=== PATIENT | male | born 1950 | race Caucasian/White ===

== ENCOUNTER → 2016-11-16 | Outpatient (CLI) | payer MEDICARE, OTHER ==
[2016-11-16 11:14] LABS: PROTHROMBIN TIME 25.8 SEC (11.4-15.4)
== END ==
LOC: OD 10:32
PROVIDERS: ATTEND Internal Medicine
DX: Z79.01 Long term (current) use of anticoagulants (principal)
CPT/HCPCS: 36415; 85610

== ENCOUNTER → 2017-01-24 | Outpatient (CLI) | payer MEDICARE, OTHER ==
[2017-01-24 11:05] LABS: PROTHROMBIN TIME 23.6 SEC (11.4-15.4)
== END ==
LOC: OD 10:12
PROVIDERS: ATTEND Internal Medicine
DX: Z79.01 Long term (current) use of anticoagulants (principal)
CPT/HCPCS: 36415; 85610

== ENCOUNTER → 2017-03-01 | Outpatient (CLI) | payer MEDICARE, OTHER ==
[~2017-03-01] MED LIST: AMINOPHYLLINE INJ/PF 250 MG/10 ML SDV IV ONE; REGADENOSON INJ 0.4 MG/5 ML DISP.SYRIN IV ONE
--- NOTE | 2017-03-01 18:34 | DRAGON STRESS TEST REPORT ---
INTRAVENOUS LEXISCAN CARDIOLITE STRESS TEST USING SINGLE PHOTON EMMISION COMPUTERIZED TOMOGRAPHIC. DATE OF PROCEDURE: March 01, 2017 INDICATION : Coronary artery disease CARDIAC RISK FACTORS: Hypertension, dyslipidemia RESTING EKG: Sinus rhythm, minor nonspecific ST segment changes. STRESS EKG: No significant changes noted with LexiScan bolus REASON FOR TERMINATION: Protocol. PROCEDURE REPORT: Baseline heart rate 68 beats per minute with blood pressure of 127/81. Patient had no significant complaints. Heart rate at 2 minutes post bolus 78 with a blood pressure of 117/66. 3 minutes post bolus heart rate 70 with blood pressure of 96/63. No significant EKG changes were noted. Patient had no significant complaints during the procedure or postprocedure. Patient injected with Aminophyllin 75 mg at 3 minutes or later after Lexiscan bolus. CONCLUSIONS: Normal EKG and hemodynamic response to IV LexiScan. NUCLEAR DATA: At rest the patient was given 14.87 millicuries of technetium 99 sestamibi injected intravenously. As per protocol rest gated SPECT images were obtained. Subsequently the patient was given intravenous LexiScan at a dose of 0.4 mg in 5 mL intravenously, followed by flush with normal saline. Subsequently the stress dose of 41.8 millicuries of technetium 99 sestamibi was injected intravenously. As per protocol stress gated images were obtained. NUCLEAR INTERPRETATION: Both raw and processed data were used for interpretation. Visual, qualitative, computer-generated quantitative data was used. There was good myocardial uptake of technetium compound. Motion artifact and soft tissue attenuations were noted. Increased visceral uptake was noted. Borderline decreased uptake was noted in the distal inferior wall in bulls eye images but is felt to be related to subtraction, related to increased visceral uptake. No corresponding wall motion abnormalities were noted. No definitive areas of transient perfusion defect noted. No definitive areas of fixed perfusion defect or scars noted. EKG gated imaging showed LV EF at 69 %, rest and stress gated EF similar visually. T. I D. ratio was 1.12. Lung heart ratio noted to be within normal limits 0.33. No significant extracardiac and abnormal radiotracer activities were noted. RV free wall uptake was noted to be mildly increased. IMPRESSION: Also refer to comments under nuclear interpretation. Also test results needs to be interpreted in the context of pretest probability. 1. There is no definitive scintigraphic evidence of LexiScan induced myocardial ischemia. 2. There is no definitive scintigraphic evidence of myocardial infarction/scar. 3. EKG gated imaging shows left ejection fraction of approximately 69 %. 4. Clinical correlation requested as occasionally single vessel disease or balanced ischemia could be missed. In approximately 10% of the cases Lexiscan may not cause adequate vasodilatory stress. RECOMMENDATIONS: Aggressive risk factor modification, medical therapy. Clinical correlation with echocardiogram derived ejection fraction. Inability to exercise by itself can lead to increased cardiovascular event risks. Consider cardiology consultation and or follow-up if clinically indicated. I AM AVAILABLE FOR CARDIOLOGY CONSULTATION AND FOLLOWUP IF REQUESTED BY PMD Jc Raza M.D., [employer] Assistant hull builder, Board certified in cardiovascular diseases, Nuclear cardiology, Echocardiography Cardiac CT and cardiac MRI Ph. [phone] [facility]
== END ==
LOC: RAD 06:33
PROVIDERS: ATTEND Internal Medicine
DX: R06.00 Dyspnea, unspecified (principal); I48.0 Paroxysmal atrial fibrillation
CPT/HCPCS: 93017; 78452; A9500; J2785; J0280; Q9969

== ENCOUNTER → 2017-03-06 | Outpatient (CLI) | payer MEDICARE, OTHER ==
[2017-03-06 13:03] LABS: PROTHROMBIN TIME 23.5 SEC (11.4-15.4)
== END ==
LOC: OD 11:42
PROVIDERS: ATTEND Internal Medicine
DX: Z79.01 Long term (current) use of anticoagulants (principal)
CPT/HCPCS: 36415; 85610

== ENCOUNTER → 2017-06-21 | Outpatient (CLI) | payer MEDICARE, OTHER ==
[2017-06-21 13:14] LABS: PROTHROMBIN TIME 26.8 SEC (11.4-15.4)
== END ==
LOC: OD 12:10
PROVIDERS: ATTEND Internal Medicine
DX: Z79.01 Long term (current) use of anticoagulants (principal)
CPT/HCPCS: 36415; 85610

== ENCOUNTER → 2017-08-13 | Outpatient (CLI) | payer MEDICARE, OTHER ==
[2017-08-13 11:33] LABS: PROTHROMBIN TIME 26.1 SEC (11.4-15.4)
== END ==
LOC: OD 10:27
PROVIDERS: ATTEND Internal Medicine
DX: Z51.81 Encounter for therapeutic drug level monitoring (principal); Z79.01 Long term (current) use of anticoagulants
CPT/HCPCS: 36415; 85610

== ENCOUNTER → 2017-11-28 | Outpatient (CLI) | payer MEDICARE, OTHER ==
[2017-11-28 11:16] LABS: PROTHROMBIN TIME 27.4 SEC (11.4-15.4)
== END ==
LOC: OD 10:16
PROVIDERS: ATTEND Internal Medicine
DX: Z51.81 Encounter for therapeutic drug level monitoring (principal); Z79.01 Long term (current) use of anticoagulants
CPT/HCPCS: 36415; 85610

== ENCOUNTER → 2018-01-29 | Outpatient (CLI) | payer MEDICARE, OTHER ==
[2018-01-29 13:35] LABS: ABSOLUTE BASOPHILS # (AUTO) 0.1 10^3/uL (0.0-0.2); ABSOLUTE EOSINOPHILS # (AUTO) 0.3 10^3/uL (0.0-0.6); ABSOLUTE LYMPHOCYTES (AUTO) 1.6 10^3/uL (0.5-4.7); ABSOLUTE MONOCYTES (AUTO) 0.6 10^3/uL (0.1-1.4); ABSOLUTE NEUT (AUTO) 5.6 10^3/uL (1.7-8.2); BASOPHILS % (AUTO) 0.9 % (0-2); EOSINOPHILS % (AUTO) 3.3 % (0-6); HEMATOCRIT 43.4 % (37.9-51.0); LYMPHOCYTES % (AUTO) 19.5 % (13-45); MEAN CORPUSCULAR HEMOGLOBIN 25.5 pg (27.0-33.4); MEAN CORPUSCULAR HGB CONC 32.2 g/dL (32.0-36.0); MEAN CORPUSCULAR VOLUME 79 fl (80-97); MONOCYTES % (AUTO) 6.8 % (3-13); PLATELET COUNT 283 10^3/uL (150-450); RED BLOOD COUNT 5.49 10^6/uL (4.35-5.55); RED CELL DISTRIBUTION WIDTH 14.8 % (11.5-14.0); SEGMENTED NEUTROPHILS % (AUTO) 69.5 % (42-78); TOTAL CELLS COUNTED % (AUTO) 100 %; WHITE BLOOD COUNT 8.1 10^3/uL (4.0-10.5)
[2018-01-29 13:42] LABS: INTERNATIONAL RATION (INR) 2.89; PROTHROMBIN TIME 31.6 SEC (11.4-15.4)
[2018-01-29 13:58] LABS: ALANINE AMINOTRANSFERASE 18 U/L (21-72); ALBUMIN 4.2 g/dL (3.5-5.0); ALKALINE PHOSPHATASE 60 U/L (38-126); ANION GAP 10 (5-19); ASPARTATE AMINO TRANSFERASE 19 U/L (17-59); BILIRUBIN,DIRECT 0.2 mg/dL (0.0-0.4); BILIRUBIN,TOTAL 0.3 mg/dL (0.2-1.3); BLOOD UREA NITROGEN 18 mg/dL (7-20); CALCIUM 10.2 mg/dL (8.4-10.2); CARBON DIOXIDE 34 mmol/L (22-30); CHLORIDE 103 mmol/L (98-107); CHOLESTEROL 95.39 mg/dL (0-200); GLUCOSE 85 mg/dL (75-110); POTASSIUM 4.6 mmol/L (3.6-5.0); SODIUM 146.5 mmol/L (137-145); TOTAL PROTEIN 6.8 g/dL (6.3-8.2); TRIGLYCERIDES 82 mg/dL (<150)
[2018-01-29 14:09] LABS: DIRECT LDL 43 mg/dL (<100)
== END ==
LOC: OD 11:42
PROVIDERS: ATTEND Internal Medicine
DX: F33.1 Major depressive disorder, recurrent, moderate (principal); F41.9 Anxiety disorder, unspecified; Z79.899 Other long term (current) drug therapy; Z79.01 Long term (current) use of anticoagulants
CPT/HCPCS: 36415; 80053; 80061; 84443; 85025; 85610

== ENCOUNTER → 2018-04-16 | Outpatient (CLI) | payer MEDICARE, OTHER ==
[2018-04-16 14:12] LABS: INTERNATIONAL RATION (INR) 2.74; PROTHROMBIN TIME 30.3 SEC (11.4-15.4)
== END ==
LOC: OD 12:24
PROVIDERS: ATTEND Internal Medicine
DX: Z79.01 Long term (current) use of anticoagulants (principal)
CPT/HCPCS: 36415; 85610

== ENCOUNTER → 2018-05-21 | Outpatient (CLI) | payer MEDICARE, OTHER ==
[2018-05-21 13:55] LABS: INTERNATIONAL RATION (INR) 3.54; PROTHROMBIN TIME 37.1 SEC (11.4-15.4)
== END ==
LOC: OD 12:44
PROVIDERS: ATTEND Internal Medicine
DX: Z51.81 Encounter for therapeutic drug level monitoring (principal); Z79.01 Long term (current) use of anticoagulants
CPT/HCPCS: 36415; 85610

== ENCOUNTER → 2018-06-12 | Outpatient (CLI) | payer MEDICARE, OTHER ==
[2018-06-12 14:39] LABS: INTERNATIONAL RATION (INR) 3.11; PROTHROMBIN TIME 33.5 SEC (11.4-15.4)
== END ==
LOC: OD 12:40
PROVIDERS: ATTEND Internal Medicine
DX: I48.91 Unspecified atrial fibrillation (principal)
CPT/HCPCS: 36415; 85610

== ENCOUNTER → 2018-06-18 | Outpatient (CLI) | payer MEDICARE, OTHER ==
[2018-06-18 12:22] LABS: INTERNATIONAL RATION (INR) 2.92; PROTHROMBIN TIME 31.8 SEC (11.4-15.4)
== END ==
LOC: OD 11:14
PROVIDERS: ATTEND Internal Medicine
DX: I48.91 Unspecified atrial fibrillation (principal)
CPT/HCPCS: 36415; 85610

== ENCOUNTER → 2018-06-26 | Outpatient (CLI) | payer MEDICARE, OTHER ==
[2018-06-26 14:27] LABS: INTERNATIONAL RATION (INR) 2.96; PROTHROMBIN TIME 32.2 SEC (11.4-15.4)
== END ==
LOC: OD 13:01
PROVIDERS: ATTEND Internal Medicine
DX: I48.1 Persistent atrial fibrillation (principal)
CPT/HCPCS: 36415; 85610

== ENCOUNTER → 2018-07-17 | Outpatient (CLI) | payer MEDICARE, OTHER ==
[2018-07-17 14:30] LABS: INTERNATIONAL RATION (INR) 2.67; PROTHROMBIN TIME 29.7 SEC (11.4-15.4)
== END ==
LOC: OD 13:15
PROVIDERS: ATTEND Internal Medicine
DX: Z51.81 Encounter for therapeutic drug level monitoring (principal); I48.91 Unspecified atrial fibrillation
CPT/HCPCS: 36415; 85610

== ENCOUNTER → 2018-08-26 | Outpatient (CLI) | payer MEDICARE, OTHER ==
[2018-08-26 12:09] LABS: INTERNATIONAL RATION (INR) 4.27
== END ==
LOC: OD 11:13
PROVIDERS: ATTEND Internal Medicine
DX: I48.91 Unspecified atrial fibrillation (principal)
CPT/HCPCS: 36415; 85610

== ENCOUNTER → 2018-09-04 | Outpatient (CLI) | payer MEDICARE, OTHER ==
[2018-09-04 10:06] LABS: ABSOLUTE BASOPHILS # (AUTO) 0.1 10^3/uL (0.0-0.2); ABSOLUTE EOSINOPHILS # (AUTO) 0.2 10^3/uL (0.0-0.6); ABSOLUTE LYMPHOCYTES (AUTO) 0.9 10^3/uL (0.5-4.7); ABSOLUTE MONOCYTES (AUTO) 0.4 10^3/uL (0.1-1.4); ABSOLUTE NEUT (AUTO) 5.9 10^3/uL (1.7-8.2); BASOPHILS % (AUTO) 0.8 % (0-2); EOSINOPHILS % (AUTO) 2.5 % (0-6); HEMOGLOBIN 12.4 g/dL (13.5-17.0); LYMPHOCYTES % (AUTO) 11.8 % (13-45); MEAN CORPUSCULAR HEMOGLOBIN 24.7 pg (27.0-33.4); MEAN CORPUSCULAR HGB CONC 32.6 g/dL (32.0-36.0); MEAN CORPUSCULAR VOLUME 76 fl (80-97); PLATELET COUNT 341 10^3/uL (150-450); RED BLOOD COUNT 5.02 10^6/uL (4.35-5.55); RED CELL DISTRIBUTION WIDTH 15.5 % (11.5-14.0); SEGMENTED NEUTROPHILS % (AUTO) 78.9 % (42-78); TOTAL CELLS COUNTED % (AUTO) 100 %; WHITE BLOOD COUNT 7.5 10^3/uL (4.0-10.5)
[2018-09-04 10:13] LABS: PROTHROMBIN TIME 23.6 SEC (11.4-15.4)
[2018-09-04 10:28] LABS: ALANINE AMINOTRANSFERASE 16 U/L (21-72); ALBUMIN 3.9 g/dL (3.5-5.0); ALKALINE PHOSPHATASE 61 U/L (38-126); ANION GAP 11 (5-19); ASPARTATE AMINO TRANSFERASE 16 U/L (17-59); BILIRUBIN,DIRECT 0.2 mg/dL (0.0-0.4); BILIRUBIN,TOTAL 0.3 mg/dL (0.2-1.3); BLOOD UREA NITROGEN 17 mg/dL (7-20); CARBON DIOXIDE 32 mmol/L (22-30); CHLORIDE 103 mmol/L (98-107); CHOLESTEROL 82.76 mg/dL (0-200); GLUCOSE 109 mg/dL (75-110); POTASSIUM 4.5 mmol/L (3.6-5.0); SODIUM 146.4 mmol/L (137-145); TOTAL PROTEIN 6.8 g/dL (6.3-8.2); TRIGLYCERIDES 70 mg/dL (<150)
[2018-09-04 10:39] LABS: DIRECT LDL 52 mg/dL (<100)
[2018-09-04 10:45] LABS: FREE T3 3.18 pg/mL (2.77-5.27); FREE T4 (FREE THYROXINE) 1.17 ng/dL (0.78-2.19)
[2018-09-04 10:58] LABS: THYROID STIMULATING HORMONE 0.71 uIU/mL (0.47-4.68)
[2018-09-04 16:51] LABS: ABSOLUTE RETICS # 0.053 10^6/uL (0.028-0.122); RETICULOCYTE COUNT (AUTO) 1.04 % (0.66-2.85)
[2018-09-04 17:28] LABS: IRON(TIBC) 31.9 ug/dL (49-181)
== END ==
LOC: OD 08:43
PROVIDERS: ATTEND Internal Medicine
DX: E78.5 Hyperlipidemia, unspecified (principal); J44.9 Chronic obstructive pulmonary disease, unspecified; I48.91 Unspecified atrial fibrillation; R53.83 Other fatigue; R35.1 Nocturia; G47.33 Obstructive sleep apnea (adult) (pediatric); R63.4 Abnormal weight loss; D64.9 Anemia, unspecified
CPT/HCPCS: 36415; 80053; 80061; 82728; 83540; 83550; 84153; 84439; 84443; 84481; 85025; 85045; 85610

== ENCOUNTER → 2018-12-12 | Outpatient (CLI) | payer MEDICARE, OTHER ==
[2018-12-12 12:48] LABS: INTERNATIONAL RATION (INR) 2.48
== END ==
LOC: OD 11:36
PROVIDERS: ATTEND Internal Medicine
DX: I48.91 Unspecified atrial fibrillation (principal)
CPT/HCPCS: 36415; 85610

== ENCOUNTER → 2018-12-20 | Outpatient (CLI) | payer OTHER, MEDICARE ==
[2018-12-20 10:41] LABS: ABSOLUTE BASOPHILS # (AUTO) 0.1 10^3/uL (0.0-0.2); ABSOLUTE EOSINOPHILS # (AUTO) 0.4 10^3/uL (0.0-0.6); ABSOLUTE LYMPHOCYTES (AUTO) 1.2 10^3/uL (0.5-4.7); ABSOLUTE MONOCYTES (AUTO) 0.7 10^3/uL (0.1-1.4); ABSOLUTE NEUT (AUTO) 7.9 10^3/uL (1.7-8.2); BASOPHILS % (AUTO) 0.8 % (0-2); HEMATOCRIT 35.3 % (37.9-51.0); HEMOGLOBIN 11.4 g/dL (13.5-17.0); LYMPHOCYTES % (AUTO) 11.3 % (13-45); MEAN CORPUSCULAR HEMOGLOBIN 23.4 pg (27.0-33.4); MEAN CORPUSCULAR HGB CONC 32.3 g/dL (32.0-36.0); MEAN CORPUSCULAR VOLUME 73 fl (80-97); MONOCYTES % (AUTO) 6.9 % (3-13); PLATELET COUNT 431 10^3/uL (150-450); RED BLOOD COUNT 4.87 10^6/uL (4.35-5.55); RED CELL DISTRIBUTION WIDTH 14.8 % (11.5-14.0); TOTAL CELLS COUNTED % (AUTO) 100 %; WHITE BLOOD COUNT 10.2 10^3/uL (4.0-10.5)
[2018-12-20 11:01] LABS: ALANINE AMINOTRANSFERASE 11 U/L (21-72); ALBUMIN 3.6 g/dL (3.5-5.0); ALKALINE PHOSPHATASE 66 U/L (38-126); AMYLASE 55 U/L (30-110); ANION GAP 9 (5-19); ASPARTATE AMINO TRANSFERASE 18 U/L (17-59); BILIRUBIN,DIRECT 0.3 mg/dL (0.0-0.4); BILIRUBIN,TOTAL 0.4 mg/dL (0.2-1.3); BLOOD UREA NITROGEN 16 mg/dL (7-20); CALCIUM 10.1 mg/dL (8.4-10.2); CARBON DIOXIDE 30 mmol/L (22-30); CHLORIDE 107 mmol/L (98-107); CHOLESTEROL 80.07 mg/dL (0-200); GLUCOSE 106 mg/dL (75-110); LIPASE 89.4 U/L (23-300); POTASSIUM 4.6 mmol/L (3.6-5.0); SODIUM 146.3 mmol/L (137-145); TOTAL PROTEIN 6.5 g/dL (6.3-8.2); TRIGLYCERIDES 69 mg/dL (<150)
[2018-12-20 11:13] LABS: DIRECT LDL 46 mg/dL (<100)
== END ==
LOC: OD 09:44
PROVIDERS: ATTEND Internal Medicine
DX: J44.9 Chronic obstructive pulmonary disease, unspecified (principal); I10 Essential (primary) hypertension; I48.0 Paroxysmal atrial fibrillation; R10.9 Unspecified abdominal pain
CPT/HCPCS: 36415; 80053; 80061; 82150; 83690; 84443; 85025

== ENCOUNTER → 2018-12-26 | Outpatient (CLI) | payer MEDICARE, OTHER ==
--- NOTE | 2018-12-26 11:08 | RADIOLOGY REPORT (SQ) ---
EXAM DESCRIPTION: CT ABD/PELVIS WITH IV ORAL COMPLETED DATE/TIME: 12/26/2018 8:00 am REASON FOR STUDY: DIVERTICULITIS OF INTESTINE (K57.92) K57.92 DVTRCLI OF INTEST, PART UNSP, W/O PER F OR ABSCESS W/O COMPARISON: 11/17/2013 TECHNIQUE: CT scan of the abdomen and pelvis performed with intravenous and oral contrast using alice desiree scanning technique with dynamic intravenous contrast injection. Images reviewed with lung, soft t issue, and bone windows. Reconstructed coronal and sagittal MPR images reviewed. Delayed images for e valuation of the urinary system also acquired. All images stored on PACS. All CT scanners at this facility use dose modulation, iterative reconstruction, and/or weight based d osing when appropriate to reduce radiation dose to as low as reasonably achievable (ALARA). [facility]: Dose Right [facility]: CareDose [facility]: Dose Right [facility]: Teradose 4D [facility]: Mural.ly CONTRAST TYPE AND DOSE: contrast/concentration: Isovue 350.00 mg/ml; Total Contrast Delivered: 75.0 ml; Total Saline Delivered: 67.0 ml RENAL FUNCTION: GFR > 60. RADIATION DOSE: CT Rad equipment meets quality standard of care and radiation dose reduction techniq ues were employed. CTDIvol: 5.9 - 6.8 mGy. DLP: 656 mGy-cm. . LIMITATIONS: None. FINDINGS: LOWER CHEST: No significant findings. No nodules or infiltrates. LIVER: Normal size. Stable hemangioma left lobe. No suspicious masses. No dilated ducts. SPLEEN: Normal size. No focal lesions. PANCREAS: Calcifications consistent with chronic pancreatitis. No acute findings. GALLBLADDER: No identified stones by CT criteria. No inflammatory changes to suggest cholecystitis. ADRENAL GLANDS: No significant masses or asymmetry. RIGHT KIDNEY AND URETER: Stable large cyst lower pole. No solid masses. No significant calcificati ons. No hydronephrosis or hydroureter. LEFT KIDNEY AND URETER: No solid masses. No significant calcifications. No hydronephrosis or hydr oureter. AORTA AND VESSELS: No aneurysm. RETROPERITONEUM: No retroperitoneal adenopathy, hemorrhage or masses. BOWEL AND PERITONEAL CAVITY: No obstruction. No visualized masses. No free fluid. No inflammatory ch anges or thickening of bowel wall. APPENDIX: Normal. PELVIS: No significant masses. Normal bladder. No free fluid. ABDOMINAL WALL: No masses. No hernias. BONES: Nothing acute. OTHER: No other significant finding. IMPRESSION: Chronic pancreatitis. No acute findings. TECHNICAL DOCUMENTATION: JOB ID: [id number] Quality ID # [id number]: Final reports with documentation of one or more dose reduction techniques (e.g., Au tomated exposure control, adjustment of the mA and/or kV according to patient size, use of iterative reconstruction technique) 2010 [employer]- All Rights Reserved Reading location - IP/workstation name: [email or web address]
== END ==
LOC: RAD 07:19
PROVIDERS: ATTEND Internal Medicine
DX: K57.92 Diverticulitis of intestine, part unspecified, without perforation or abscess without bleeding (principal); K86.1 Other chronic pancreatitis
CPT/HCPCS: 74177

== ENCOUNTER → 2019-01-06 | Outpatient (CLI) | payer MEDICARE, OTHER ==
[~2019-01-06] MED LIST changes: -AMINOPHYLLINE INJ/PF 250 MG/10 ML SDV IV ONE
--- NOTE | 2019-01-07 00:38 | DRAGON STRESS TEST REPORT ---
Intravenous Lexiscan Cardiolite stress test using single photon emmision computerized tomography. Date of procedure: 01/06/2019. Ordering Provider: Dr. Leisa Sutton. Patient's status: Out Patient. Indication: Abnormal EKG, and preoperative cardiac risk assessment.. Coronary risk factors age, hypertension, and dyslipidemia.: Resting EKG: Sinus Rhythm. Poor R wave progression leads V1 to V6. Nonspecific ST-T changes. Stress EKG: No changes of ischemia. The patient had no chest pain or discomfort, and there were no arrhythmias seen Reason for termination: Protocol. Conclusions: Normal EKG and hemodynamic response to IV Lexiscan. Nuclear data: At rest the patient was given 10.64 millicuries of technetium 99m sestamibi injected intravenously. As per protocol rest non gated SPECT images were obtained. Subsequently the patient was given intravenous Lexiscan at a dose of 0.4 mg in 5 mL intravenously, followed by flush with normal saline. Subsequently the stress dose of 32.0 millicuries of technetium 99m sestamibi was injected intravenously. As per protocol stress gated images were obtained. Nuclear interpretation: Review of images showed that all segments of the myocardium had normal perfusion at rest, and normal perfusion post stress with IV Lexiscan. All segments of the myocardium had normal motion, contraction, and thickening by gated study. T. I D. ratio was normal at 1.04. There is no transient ischemic dilatation of the left ventricle. Computer read rest, and stress left ventricular ejection fraction were 67 %, and 71 %, respectively. Conclusion: 1. There is no scintigraphic evidence of Lexiscan induced myocardial ischemia. 2. There is no scintigraphic evidence of myocardial infarction/scar. Recommendations: Aggressive risk factor modification, and treating the underlying co- morbidities. MTDD
--- NOTE | 2019-01-07 21:03 | XCELERA REPORT ---
[address] [address] Transthoracic Echocardiogram Report Name: CIARA HOOD Age: 68 yrs Gender: Male : 1950 Patient Status: Outpatient Patient Location: RAD Study Date: 01/06/2019 08:59 AM Height: 27 in Weight: 298 lb BSA: 1.2 m2 Procedure: A two-dimensional transthoracic echocardiogram with color flow Doppler was performed. The study was technically limited with all images being suboptimal in quality. Images were not obtained from all of the standard acoustic windows due to the limited scope of the study. Reason For Study: MURMUR / Preop Cardiac Risk assessment. History: MURMUR /Preoperative Cardiac risk assessment. Ordering Physician: LEISA ABEL Performed By: Zehra Baldwin Interpretation Summary The left ventricle is normal in size. There is normal left ventricular wall thickness. No True apical 2 chamber views obtained.Hence cannot comment on the apical anterior , the basal anterior, the basal inferior and apical inferior morales.The mid anterior , the mid inferior and the rest of the LV morales contract normally. . LVEF is normal and is greater than 60% in the limited views. Doppler measurements suggest impaired left ventricular relaxation, which is associated with grade I/IV or mild diastolic dysfunction The right ventricle is not well visualized secondary to technical limitations Right atrium not well visualized secondary to technical limitations The left atrial size is normal. There is no evidence of mitral valve prolapse. There is no vegetation seen on the mitral valve. There is no mitral valve stenosis. There is no mitral regurgitation noted. There is no aortic valve stenosis There is no LVOT obstruction. No aortic regurgitation is present. There is no tricuspid stenosis. No tricuspid regurgitation. Unable to calculate RVSP due lack of TR jet There is no pulmonic valvular stenosis. There is no pulmonic valvular regurgitation. The aortic root is not well visualized. There is no pericardial effusion. MMode/2D Measurements & Calculations RVDd: 3.3 cm LVIDd: 4.4 cm FS: 32.3 % Ao root diam: 2.8 cm IVSd: 0.79 cm LVIDs: 3.0 cm EDV(Teich): 89.4 ml Ao root area: 6.2 cm2 LVPWd: 1.0 cm ESV(Teich): 35.1 ml EF(Teich): 60.7 % Doppler Measurements & Calculations MV E max vivek: MV dec slope: Ao V2 max: LV V1 max P.9 cm/sec 260.3 cm/sec2 128.4 cm/sec 4.7 mmHg MV A max vivek: MV dec time: 0.21 secAo max PG: LV V1 max: 73.7 cm/sec 6.6 mmHg 108.6 cm/sec MV E/A: 0.73 PA V2 max: 112.6 cm/sec PA max P.1 mmHg Left Ventricle The left ventricle is normal in size. There is normal left ventricular wall thickness. No True apical 2 chamber views obtained.Hence cannot comment on the apical anterior , the basal anterior, the basal inferior and apical inferior morales.The mid anterior , the mid inferior and the rest of the LV morales contract normally. . LVEF is normal and is greater than 60% in the limited views. Doppler measurements suggest impaired left ventricular relaxation, which is associated with grade I/IV or mild diastolic dysfunction. Right Ventricle The right ventricle is not well visualized secondary to technical limitations. Atria Right atrium not well visualized secondary to technical limitations. The left atrial size is normal. Mitral Valve There is no evidence of mitral valve prolapse. There is no vegetation seen on the mitral valve. There is no mitral valve stenosis. There is no mitral regurgitation noted. Aortic Valve There is no aortic valve stenosis. There is no LVOT obstruction. No aortic regurgitation is present. Tricuspid Valve There is no tricuspid stenosis. No tricuspid regurgitation. Unable to calculate RVSP due lack of TR jet. Pulmonic Valve There is no pulmonic valvular stenosis. There is no pulmonic valvular regurgitation. Great Vessels The aortic root is not well visualized. Effusions There is no pericardial effusion. : LEISA ABEL > Leisa Abel
== END ==
LOC: RAD 08:33
PROVIDERS: ATTEND Specialist
DX: Z01.810 Encounter for preprocedural cardiovascular examination (principal); R07.9 Chest pain, unspecified; R94.31 Abnormal electrocardiogram [ECG] [EKG]; R01.1 Cardiac murmur, unspecified
CPT/HCPCS: 93306; 93017; 78452; A9500; J2785

== ENCOUNTER → 2019-01-08 | Outpatient (CLI) | payer MEDICARE, OTHER ==
--- NOTE | 2019-01-08 10:50 | RADIOLOGY REPORT (SQ) ---
EXAM DESCRIPTION: CT CHEST WITH COMPLETED DATE/TIME: 01/08/2019 9:52 am REASON FOR STUDY: R91.8 OTHER NONSPECIFIC ABNORMAL FINDING OF LUNG FIELD R91.8 OTHER NONSPECIFIC AB NORMAL FINDING OF LUNG FIELD COMPARISON: 2009 TECHNIQUE: CT scan of the chest performed using helical scanning technique with dynamic intravenous contrast injection. Images reviewed with lung, soft tissue and bone windows. Reconstructed coronal and sagittal MPR and MIP images reviewed. All images stored on PACS. All CT scanners at this facility use dose modulation, iterative reconstruction, and/or weight based d osing when appropriate to reduce radiation dose to as low as reasonably achievable (ALARA). [facility]: Dose Right [facility]: CareDose [facility]: Dose Right [facility]: Teradose 4D [facility]: [employer] CONTRAST TYPE AND DOSE: 80 cc Omnipaque 350- low osmolar. RENAL FUNCTION: GFR > 60. RADIATION DOSE: CT Rad equipment meets quality standard of care and radiation dose reduction techniq ues were employed. CTDIvol: 6.4 mGy. DLP: 240 mGy-cm. . LIMITATIONS: None. FINDINGS: LUNGS AND PLEURA: 8.3 x 8.0 x 7.37 AP by transverse by craniocaudal diameter left apical m ass. There is encasement of the left upper lobe bronchus. Mild -moderate centrilobular emphysema. 12 mm ground-glass nodule right costophrenic angle. No effusions. HILAR AND MEDIASTINAL STRUCTURES: 1.3 cm level 2R node. HEART AND VASCULAR STRUCTURES: No aneurysm or dissection. No central pulmonary emboli. No pericardi al effusion. HARDWARE: None in the chest. UPPER ABDOMEN: No significant findings. Limited exam. THYROID AND OTHER SOFT TISSUES: No masses. No adenopathy. BONES: Well-circumscribed sclerotic lesion in T2 vertebral body which is unchanged and most likely a benign bone island. OTHER: No other significant finding. IMPRESSION: 1. Left apical lung mass amenable to CT-guided biopsy. 2. 12 mm ground-glass nodule right lower lobe. 3. Small mediastinal level 4 node. TECHNICAL DOCUMENTATION: JOB ID: [id number] Quality ID # [id number]: Final reports with documentation of one or more dose reduction techniques (e.g., Au tomated exposure control, adjustment of the mA and/or kV according to patient size, use of iterative reconstruction technique) 2010 [employer]- All Rights Reserved Reading location - IP/workstation name: [email or web address]
== END ==
LOC: RAD 09:30
PROVIDERS: ATTEND Surgery
DX: R91.8 Other nonspecific abnormal finding of lung field (principal)
CPT/HCPCS: 71260; 82565

== ENCOUNTER → 2019-01-10 | Day surgery (SDC) | payer MEDICARE, OTHER ==
[2019-01-03 10:56] LABS: HEMATOCRIT 35.6 % (37.9-51.0); HEMOGLOBIN 11.6 g/dL (13.5-17.0); MEAN CORPUSCULAR HEMOGLOBIN 23.3 pg (27.0-33.4); MEAN CORPUSCULAR HGB CONC 32.5 g/dL (32.0-36.0); MEAN CORPUSCULAR VOLUME 72 fl (80-97); PLATELET COUNT 422 10^3/uL (150-450); RED BLOOD COUNT 4.96 10^6/uL (4.35-5.55); RED CELL DISTRIBUTION WIDTH 14.8 % (11.5-14.0); WHITE BLOOD COUNT 9.2 10^3/uL (4.0-10.5)
[2019-01-03 11:21] LABS: ALANINE AMINOTRANSFERASE 22 U/L (21-72); ALBUMIN 3.8 g/dL (3.5-5.0); ALKALINE PHOSPHATASE 68 U/L (38-126); ANION GAP 12 (5-19); ASPARTATE AMINO TRANSFERASE 27 U/L (17-59); BILIRUBIN,DIRECT 0.4 mg/dL (0.0-0.4); BILIRUBIN,TOTAL 0.4 mg/dL (0.2-1.3); BLOOD UREA NITROGEN 18 mg/dL (7-20); CALCIUM 10.3 mg/dL (8.4-10.2); CARBON DIOXIDE 30 mmol/L (22-30); CHLORIDE 99 mmol/L (98-107); GLUCOSE 94 mg/dL (75-110); POTASSIUM 3.9 mmol/L (3.6-5.0); SODIUM 141.2 mmol/L (137-145); TOTAL PROTEIN 6.9 g/dL (6.3-8.2)
[2019-01-03 11:26] VITALS: BP 100/69
--- NOTE | 2019-01-03 12:14 | RADIOLOGY REPORT (SQ) ---
EXAM DESCRIPTION: CHEST PA/LATERAL COMPLETED DATE/TIME: 01/03/2019 11:54 am REASON FOR STUDY: PRE-OP COMPARISON: 05/10/2015 EXAM PARAMETERS: NUMBER OF VIEWS: two views TECHNIQUE: Digital Frontal and Lateral radiographic views of the chest acquired. RADIATION DOSE: NA LIMITATIONS: none FINDINGS: LUNGS AND PLEURA: A new large ill-defined mass in the left upper lobe extends into the le ft apex and lies adjacent to the mediastinum/hilar regions. Left apical thickening. Elevation of th e left hemidiaphragm Considerations for this finding includes neoplasm, possible inflammatory/ infect ious etiologies. Questionable nodular density overlying the right lower lung, may represent the patient's nipple versu s nodule. No pneumothorax or pleural effusion. MEDIASTINUM AND HILAR STRUCTURES: No masses or contour abnormalities. HEART AND VASCULAR STRUCTURES: Heart normal size. No evidence for failure. BONES: No acute findings. HARDWARE: None in the chest. OTHER multiple surgical metallic clips overlying the lateral aspect of the right chest wall, stable f indings. IMPRESSION: 1. Since the previous examination dated 05/10/2015, a new large ill-defined mass in the left upper lobe extending into the left apex of the lung. Considerations for this finding includes n eoplasm, possible inflammatory/infectious etiologies. Further evaluation with CT chest with IV contr ast suggested. 2. Questionable nodule over lies the right lower lung, may represent the patient's nipple versus nod ule. This finding may also be evaluated with chest CT. TECHNICAL DOCUMENTATION: JOB ID: [id number] [employer]- All Rights Reserved Reading location - IP/workstation name: [email or web address]
[~2019-01-10] MED LIST changes: +CEFOXITIN SODIUM 2 GM in DEXTROSE 5%-WATER 100 ML IV PRN; +LACTATED RINGERS 1000 ML IV PRN; +LIDOCAINE 0.5% INJ-PF (5 MG/ML) 50 ML SDV SUBCUT PRN; -REGADENOSON INJ 0.4 MG/5 ML DISP.SYRIN IV ONE
== END ==
LOC: OROUT 12:02
PROVIDERS: ATTEND Surgery
DX: Z01.818 Encounter for other preprocedural examination (principal); K80.20 Calculus of gallbladder without cholecystitis without obstruction; I48.91 Unspecified atrial fibrillation; J44.9 Chronic obstructive pulmonary disease, unspecified; I25.2 Old myocardial infarction; I49.9 Cardiac arrhythmia, unspecified; K21.9 Gastro-esophageal reflux disease without esophagitis
CPT/HCPCS: 36415; 71046; 80048; 80076; 85027; J0694

== ENCOUNTER → 2019-01-26 | Outpatient (CLI) | payer MEDICARE, OTHER ==
--- NOTE | 2019-01-27 09:14 | RADIOLOGY REPORT (SQ) ---
EXAM DESCRIPTION: PET CT SKULL/THIGH COMPLETED DATE/TIME: 01/26/2019 9:54 pm REASON FOR STUDY: C34.12 MALIGNANT NEOPLASM OF UPPER LOBE, LEFT BRONCHUS OR LUNG C34.12 MALIGNANT N EOPLASM OF UPPER LOBE, LEFT BRONCHUS OR BINH COMPARISON: CT chest 01/22/2019 CT abdomen pelvis 12/26/2018 RADIONUCLIDE AND DOSE: 10.3 mCi F18 FDG The route of agent administration: Intravenous FASTING BLOOD SUGAR: 107 mg/dl CONTRAST TYPE AND DOSE: No CT contrast given. TECHNIQUE: Blood glucose level was verified. Above dose of FDG was injected intravenously. 2-D seg mented attenuation correction images were obtained from the base of the skull to the midthighs. Nonc ontrast CT images were obtained for attenuation correction and fusion with emission images. CT image s were performed without oral or intravenous contrast and are not sensitive for parenchymal lesions. A series of overlapping emission PET images were obtained. Images reviewed and [facility] by the radiologist. Images stored on PACS. LIMITATIONS: None. FINDINGS: HEAD AND NECK: No areas of abnormal metabolic activity in the soft tissues of the head and neck. CHEST: A left apical an 8.5 x 8 cm spiculated mass is present with central necrosis. This encases th e left upper lobe bronchus. This has SUV of 12 to 13.7 and correlates with diagnosis of lung cancer. No metabolically active mediastinal adenopathy. 1.5 x 1.7 cm precarinal lymph node axial image 84 wi th SUV of 1.3. ABDOMEN AND PELVIS: No areas of abnormal metabolic activity in the abdomen or pelvis. Specifically, no metabolically active liver lesions are present. Expected physiologic activity is present in the g enitourinary system and bowel. PROXIMAL LOWER EXTREMITIES: No areas of abnormal metabolic activity in the soft tissues of the lower extremities. BONES: No abnormal metabolic activity in the visualized skeleton. ADDITIONAL CT FINDINGS: Obstructive lung disease, calcified coronary arteries. Diffuse calcification s the pancreas from old pancreatitis. Right lower pole 6.5 cm renal cortical cyst. OTHER: Liver background activity 1.8 SUV. Blood pool background activity 1.2 SUV IMPRESSION: Malignant left upper lobe mass. No PET-CT evidence of widespread metastatic disease TECHNICAL DOCUMENTATION: JOB ID: [id number]- All Rights Reserved Reading location - IP/workstation name: [email or web address]
== END ==
LOC: RAD 20:12
PROVIDERS: ATTEND Internal Medicine
DX: C34.12 Malignant neoplasm of upper lobe, left bronchus or lung (principal); J44.9 Chronic obstructive pulmonary disease, unspecified
CPT/HCPCS: 78815; A9552

== ENCOUNTER → 2019-01-27 | Outpatient (CLI) | payer MEDICARE, OTHER ==
--- NOTE | 2019-01-27 17:11 | RADIOLOGY REPORT (SQ) ---
EXAM DESCRIPTION: MRI HEAD COMBO COMPLETED DATE/TIME: 01/27/2019 4:33 pm REASON FOR STUDY: C34.12 MALIGNANT NEOPLASM OF UPPER LOBE, LEFT BRONCHUS OR LUNG C34.12 MALIGNANT N EOPLASM OF UPPER LOBE, LEFT BRONCHUS OR BINH COMPARISON: PET-CT 01/26/2019 TECHNIQUE: Multiplanar imaging includes noncontrasted T1, T2, FLAIR, diffusion with ADC map and post gadolinium contrast T1 sequences. Images stored on PACS. CONTRAST TYPE AND DOSE: 10 mL Dotarem. RENAL FUNCTION: Not indicated. ACR Type II contrast agent associated with few, if any, unconfounded cases of NSF LIMITATIONS: None. FINDINGS: ANATOMY: No developmental anomalies. Normal vascular flow voids. Pituitary fossa normal. CSF SPACES: Normal in size and contour. No hemorrhage. CEREBRUM: Sulci and gyri normal in size and contour. Normal white matter signal on FLAIR imaging. No evidence of hemorrhage, mass, or extraaxial fluid collection. No abnormal enhancement post contrast. POSTERIOR FOSSA: No signal alteration. No hemorrhage. No edema, masses, or mass effect. Internal ellis tory canals, cerebellopontine angles, mastoids normal. No enhancing lesions. No abnormal enhancement post contrast. DIFFUSION IMAGING: Negative for acute or subacute infarction. ORBITS: No masses. Globes normal. PARANASAL SINUSES: No fluid levels. Mucosa normal. OTHER: No other significant finding. IMPRESSION: NORMAL MRI OF THE BRAIN WITHOUT AND WITH INTRAVENOUS GADOLINIUM CONTRAST. EVIDENCE OF ACUTE STROKE: NO. TECHNICAL DOCUMENTATION: JOB ID: [id number] [employer]- All Rights Reserved Reading location - IP/workstation name: [email or web address]
== END ==
LOC: RAD 15:19
PROVIDERS: ATTEND Internal Medicine
DX: C34.12 Malignant neoplasm of upper lobe, left bronchus or lung (principal)
CPT/HCPCS: 82565; 70553; A9576

== ENCOUNTER → 2019-01-27 | Outpatient (CLI) | payer MEDICARE, OTHER ==
[2019-01-27 16:31] LABS: INTERNATIONAL RATION (INR) 2.03
== END ==
LOC: OD 14:42
PROVIDERS: ATTEND Internal Medicine
DX: Z51.81 Encounter for therapeutic drug level monitoring (principal); I48.91 Unspecified atrial fibrillation; Z79.01 Long term (current) use of anticoagulants
CPT/HCPCS: 36415; 85610

== ENCOUNTER → 2019-02-20 | Outpatient (CLI) | payer MEDICARE, OTHER ==
--- NOTE | 2019-02-20 09:29 | EKG REPORT ---
SEVERITY:- BORDERLINE ECG - SINUS TACHYCARDIA ATRIAL PREMATURE COMPLEX BORDERLINE T ABNORMALITIES, ANT-LAT LEADS : Confirmed by: Jc Raza 20-Feb-2019 09:29:04
[2019-02-20 09:47] LABS: HEMATOCRIT 33.9 % (37.9-51.0); HEMOGLOBIN 10.6 g/dL (13.5-17.0); MEAN CORPUSCULAR HGB CONC 31.3 g/dL (32.0-36.0); MEAN CORPUSCULAR VOLUME 70 fl (80-97); PLATELET COUNT 506 10^3/uL (150-450); RED BLOOD COUNT 4.84 10^6/uL (4.35-5.55); RED CELL DISTRIBUTION WIDTH 15.2 % (11.5-14.0); WHITE BLOOD COUNT 10.6 10^3/uL (4.0-10.5)
[2019-02-20 09:51] LABS: INTERNATIONAL RATION (INR) 1.27; PROTHROMBIN TIME 16.5 SEC (11.4-15.4)
[2019-02-20 10:17] LABS: ALANINE AMINOTRANSFERASE 25 U/L (21-72); ALBUMIN 3.5 g/dL (3.5-5.0); ALKALINE PHOSPHATASE 75 U/L (38-126); ANION GAP 11 (5-19); ASPARTATE AMINO TRANSFERASE 27 U/L (17-59); BILIRUBIN,DIRECT 0.3 mg/dL (0.0-0.4); BILIRUBIN,TOTAL 0.6 mg/dL (0.2-1.3); BLOOD UREA NITROGEN 14 mg/dL (7-20); CALCIUM 10.7 mg/dL (8.4-10.2); CARBON DIOXIDE 30 mmol/L (22-30); CHLORIDE 100 mmol/L (98-107); GLUCOSE 113 mg/dL (75-110); POTASSIUM 4.7 mmol/L (3.6-5.0); SODIUM 141.4 mmol/L (137-145); TOTAL PROTEIN 6.8 g/dL (6.3-8.2)
== END ==
LOC: OD 08:50
PROVIDERS: ATTEND Surgery
DX: Z01.818 Encounter for other preprocedural examination (principal); K80.20 Calculus of gallbladder without cholecystitis without obstruction; F48.9 Nonpsychotic mental disorder, unspecified; C34.90 Malignant neoplasm of unspecified part of unspecified bronchus or lung; J44.9 Chronic obstructive pulmonary disease, unspecified; Z86.73 Personal history of transient ischemic attack (TIA), and cerebral infarction without residual deficits; Z86.711 Personal history of pulmonary embolism; K21.9 Gastro-esophageal reflux disease without esophagitis
CPT/HCPCS: 36415; 80053; 85027; 85610; 93005; 93010

== ENCOUNTER 2019-02-24 12:23 | Day surgery (SDC) | payer MEDICARE, OTHER ==
[~2019-02-24 12:23] MED LIST changes: +ACETAMINOPHEN 0 MG/0 ML RTUPB IV ONE; +DEXAMETHASONE SOD PHOSPHATE INJ 4 MG/1 ML VIAL ONE; +FENTANYL CITRATE INJ/PF 100 MCG/2 ML AMPUL ONE; +IBUPROFEN INJ 800 MG/8 ML VIAL IV PRN; -LACTATED RINGERS 1000 ML IV PRN; -LIDOCAINE 0.5% INJ-PF (5 MG/ML) 50 ML SDV SUBCUT PRN; +MIDAZOLAM 2 MG/2 ML INJ ONE; +ONDANSETRON HCL INJ/PF 4 MG/2 ML SDV ONE; +PHENYLEPHRINE HCL INJ/PF 10 MG/1 ML SDV ONE; +PREGABALIN 50 MG CAPSULE PO PRN; +PROPOFOL INJ 200 MG/20 ML VIAL IV ONE; +SUGAMMADEX SODIUM 200 MG/2 ML SDV IV ONE
[2019-02-24] MEDS ORDERED: IBUPROFEN 800 MG in NORMAL SALINE 250 ML IV PRN (13:49)
[2019-02-24 14:24] LABS: INTERNATIONAL RATION (INR) 1.18; PARTIAL THROMBOPLASTIN TIME 43.9 SEC (23.5-35.8); PROTHROMBIN TIME 15.6 SEC (11.4-15.4)
[2019-02-24 14:57] LABS: HEMOGLOBIN 11.4 g/dL (13.5-17.0); MEAN CORPUSCULAR HEMOGLOBIN 21.8 pg (27.0-33.4); MEAN CORPUSCULAR HGB CONC 30.9 g/dL (32.0-36.0); MEAN CORPUSCULAR VOLUME 71 fl (80-97); PLATELET COUNT 620 10^3/uL (150-450); RED BLOOD COUNT 5.23 10^6/uL (4.35-5.55); RED CELL DISTRIBUTION WIDTH 15.5 % (11.5-14.0); WHITE BLOOD COUNT 14.8 10^3/uL (4.0-10.5)
[2019-02-24] MEDS ORDERED: PREGABALIN 50 MG CAPSULE ONE (15:06)
[2019-02-24] MEDS ORDERED: BUPIVACAINE HCL 0.25 % INJ/PF (2.5 MG/1 ML) 30 ML VIAL ONE (15:56)
[2019-02-24] MEDS ORDERED: MEPERIDINE HCL/PF INJ 25 MG/1 ML DISP.SYRIN IV PRN (16:59)
[2019-02-24] MEDS ORDERED: MORPHINE SULFATE 10 MG/ML INJ IV PRN (16:59)
[2019-02-24] MEDS ORDERED: FENTANYL CITRATE INJ/PF 100 MCG/2 ML AMPUL IV PRN ×3 (16:59)
[2019-02-24] MEDS ORDERED: DIPHENHYDRAMINE HCL 50 MG/ML VIAL IV PRN (16:59)
[2019-02-24] MEDS ORDERED: ONDANSETRON HCL INJ/PF 4 MG/2 ML SDV IV PRN (16:59)
[2019-02-24] MEDS ORDERED: PROMETHAZINE HCL INJ 25 MG/1 ML VIAL IV PRN ×2 (16:59)
[2019-02-24] MEDS ORDERED: FENTANYL CITRATE INJ/PF 100 MCG/2 ML AMPUL ONE (17:55)
[2019-02-24] MEDS ORDERED: MEPERIDINE HCL/PF INJ 25 MG/1 ML DISP.SYRIN ONE (18:02)
[2019-02-24] MEDS ORDERED: HYDROCODONE/ACETAMINOPHEN 10-325 MG TABLET PO PRN (18:04)
[2019-02-24] MEDS ORDERED: PROMETHAZINE HCL INJ 25 MG/1 ML VIAL ONE (18:05)
[2019-02-24] MEDS ORDERED: HYDROCODONE/ACETAMINOPHEN 10-325 MG TABLET ONE (18:55)
[2019-02-24 20:40] VITALS: BP 139/85
--- NOTE | 2019-02-25 09:13 | Discharge Summary ---
Discharge Summary (SDC) - Discharge Final Diagnosis: Chronic cholecystitis Date of Surgery: 02/24/19 Discharge Date: 02/24/19 Condition: Stable Forms: ASU Anesthesia D/C Instruction, Discharge POC-Surgical Service Referrals: JAIR MENESES MD [Primary Care Provider] - ANIVAL ACUNA MD [ACTIVE STAFF] - (Follow up with Dr Acuna 03/04/19 @ 1100) Discharge Diet: As Tolerated Respiratory Treatments at Home: Deep Breathing/Coughing, Incentive Spirometer Discharge Activity: No Lifting Over 10 Pounds, No Lifting/Push/Pulling Home Care Assistance: Provided by Family Report the Following to Your Physician Immediately: Shortness of Breath, Nausea, Vomiting, Increase in Pain, Yellow Skin, Fever over 101 Degrees, Unusual Bleeding, Redness, Swelling, Warmth, Increased Soreness, Drainage-Yellow, IV Site Infection Signs
--- NOTE | 2019-02-25 09:20 | Operative Report ---
Nonrecallable Operative Report DATE OF SURGERY: 02/24/19 PREOPERATIVE DIAGNOSIS: Chronic cholecystitis POSTOPERATIVE DIAGNOSIS: Severe, chronic cholecystitis OPERATION: Laparoscopic cholecystectomy SURGEON: ANIVAL VELÁSQUEZ ANESTHESIA: GA TISSUE REMOVED OR ALTERED: Gallbladder COMPLICATIONS: None apparent ESTIMATED BLOOD LOSS: 50 cc PROCEDURE: Drains/implants: 15 Ukrainian round Fam drain in the gallbladder fossa. Procedure in detail: After informed consent was obtained, the patient was brought into the operating room and laid the supine position. The area of the abdomen was prepped and draped in a normal sterile fashion. A 15 blade scalpel was used to create an infraumbilical incision. This was deepened using sharp and blunt dissection. The cicatrix was identified, grasped with a Geoff clamp, and retracted upwards. The linea alba fascia was incised sharply, the abdomen was entered sharply. The balloon trocar was inserted, and pneumoperitoneum was achieved. A subxiphoid 5 mm port was placed under direct laparoscopic visualization. 2 more 5 mm ports were placed in the right upper quadrant in similar fashion. Atraumatic graspers were placed through the 5 mm ports. There was a dense inflammatory reaction around the gallbladder that appeared chronic. There was a large amount of omentum and transverse colon adherent to the gallbladder. With great care this was dissected free using sharp and blunt dissection. The gallbladder was then retracted cephalad and laterally. There was a dense inflammatory reaction that appear chronic in the infundibulum. Secondary to this a dome down technique was performed. The gallbladder was freed from the liver,starting with the dome, down to the infundibulum. The cystic duct could not be easily freed from the surrounding tissues. Secondary to this the gallbladder was amputated at the infundibulum and a PDS Endoloop was placed at the infundibulum/cystic duct junction. The gallbladder was then placed into an Endo Catch bag and pulled out through the umbilicus. The camera was reinserted. The hilum was inspected. The abdomen was copiously irrigated. The hilum was found to be free of any leakage of blood or bile. Secondary to the dense inflammatory reaction, a 15 Ukrainian round Fam drain was placed through the lateralmost 5 mm trocar site and directed into the gallbladder fossa. This was sutured into place using 2-0 nylon suture. Once the abdomen was adequately cleaned, the 5 mm trochars were removed under direct laparoscopic visualization. The infraumbilical trocar was removed, and pneumoperitoneum was relieved. The infraumbilical fascia was closed using 0 Vicryl suture in pandoa-vd-rsoan fashion. The overlying skin was closed using 4-0 Vicryl Rapide suture in subcuticular fashion. Dressings were placed, and the procedure was concluded. All sponge, instrument, needle counts were correct x2. Condition: Stable.
[2019-02-25] MEDS ORDERED: IBUPROFEN 800 MG TABLET PO SCH (10:00)
== END 2019-02-24 20:10 | disposition home or self-care (01) ==
LOC: OROUT 12:23
PROVIDERS: ATTEND Surgery
DX: K80.10 Calculus of gallbladder with chronic cholecystitis without obstruction (principal); I48.91 Unspecified atrial fibrillation; J44.9 Chronic obstructive pulmonary disease, unspecified; E07.9 Disorder of thyroid, unspecified; M06.9 Rheumatoid arthritis, unspecified; K21.9 Gastro-esophageal reflux disease without esophagitis; K44.9 Diaphragmatic hernia without obstruction or gangrene; I49.9 Cardiac arrhythmia, unspecified; Z86.711 Personal history of pulmonary embolism; Z89.619 Acquired absence of unspecified leg above knee; Z86.73 Personal history of transient ischemic attack (TIA), and cerebral infarction without residual deficits; Z79.01 Long term (current) use of anticoagulants; Z85.118 Personal history of other malignant neoplasm of bronchus and lung; Z87.891 Personal history of nicotine dependence
CPT/HCPCS: 86900; 86901; 36415; 86850; 84132; 85610; 85730; 88304 ×2; 47562; J2250; J1100; J0694; J3010; J2175; J2370; J2550; J2405; J7060; J7050; J2704; A9270 ×2; J1741; J3490; 790; J0131

== ENCOUNTER → 2019-03-25 | Outpatient (CLI) | payer MEDICARE, OTHER ==
--- NOTE | 2019-03-25 10:39 | RADIOLOGY REPORT (SQ) ---
EXAM DESCRIPTION: CT CHEST WITHOUT COMPLETED DATE/TIME: 03/25/2019 9:37 am REASON FOR STUDY: LUNG CA (C34.12) C34.12 MALIGNANT NEOPLASM OF UPPER LOBE, LEFT BRONCHUS OR BINH COMPARISON: 01/08/2019 TECHNIQUE: CT scan performed of the chest without intravenous contrast. Images reviewed with lung, soft tissue and bone windows. Reconstructed coronal and sagittal MPR images reviewed. All images st ored on PACS. All CT scanners at this facility use dose modulation, iterative reconstruction, and/or weight based d osing when appropriate to reduce radiation dose to as low as reasonably achievable (ALARA). [facility]: Dose Right [facility]: CareDose [facility]: Dose Right [facility]: Teradose 4D [facility]: [employer] RADIATION DOSE: CT Rad equipment meets quality standard of care and radiation dose reduction techniq ues were employed. CTDIvol: 4.8 mGy. DLP: 192 mGy-cm. mGy. LIMITATIONS: No technical limitations. FINDINGS: LUNGS AND PLEURA: Left apical lung mass measures 86.8 mm x 81.1 mm on image 18 series 2. The isthmus measures 88.2 mm in cephalocaudal dimension on image 36 series 601. There is a 12 mm reyna und-glass nodule on the right on image 101 series 4. There is irregular nodularity in the upper post erior aspect of the left lower lobe. See images 42-56 of series 4. This represents a new finding. HILAR AND MEDIASTINAL STRUCTURES: 12 mm mediastinal node on image 52 series 2. HEART AND VASCULAR STRUCTURES: No aneurysm. No pericardial effusion. UPPER ABDOMEN: Pancreatic calcifications consistent with chronic pancreatitis. THYROID AND OTHER SOFT TISSUES: No masses. No adenopathy. BONES: No significant finding. HARDWARE: None in the chest. OTHER: No other significant findings. IMPRESSION: Increasing disease in the chest. The left upper lobe lung mass is slightly larger. Thi s is most evident in the cephalocaudal dimension. There is also some new irregular nodularity in the left lower lobe as described. Chronic pancreatitis. TECHNICAL DOCUMENTATION: JOB ID: [id number] Quality ID # [id number]: Final reports with documentation of one or more dose reduction techniques (e.g., Au tomated exposure control, adjustment of the mA and/or kV according to patient size, use of iterative reconstruction technique) 2010 [employer]- All Rights Reserved Reading location - IP/workstation name: [email or web address]
== END ==
LOC: RAD 09:15
PROVIDERS: ATTEND Internal Medicine
DX: C34.12 Malignant neoplasm of upper lobe, left bronchus or lung (principal)
CPT/HCPCS: 71250

== ENCOUNTER → 2019-06-17 | Outpatient (CLI) | payer MEDICARE, OTHER ==
--- NOTE | 2019-06-17 10:55 | RADIOLOGY REPORT (SQ) ---
EXAM DESCRIPTION: CT ABD/PELVIS WITH IV ONLY COMPLETED DATE/TIME: 06/17/2019 9:05 am REASON FOR STUDY: MALIGNANT NEOPLASM OF UPPER LOBE, LEFT BRONCHUS OR LUNG C34.12 MALIGNANT NEOPLASM OF UPPER LOBE, LEFT BRONCHUS OR BINH COMPARISON: 12/26/2018 TECHNIQUE: CT scan of the abdomen and pelvis performed using helical scanning technique with dynamic intravenous contrast injection. No oral contrast. Images reviewed with lung, soft tissue, and bone windows. Reconstructed coronal and sagittal MPR images reviewed. Delayed images for evaluation of the urinary system also acquired. All images stored on PACS. All CT scanners at this facility use dose modulation, iterative reconstruction, and/or weight based d osing when appropriate to reduce radiation dose to as low as reasonably achievable (ALARA). [facility]: Dose Right [facility]: CareDose [facility]: Dose Right [facility]: Teradose 4D [facility]: StudyMax CONTRAST TYPE AND DOSE: contrast/concentration: Isovue 350.00 mg/ml; Total Contrast Delivered: 64.0 ml; Total Saline Delivered: 65.0 ml RENAL FUNCTION: See chart RADIATION DOSE: . LIMITATIONS: None. FINDINGS: LOWER CHEST: See separate report of the CT of the chest. LIVER: Normal size. No new masses. Stable size of the hypodense head hepatic lobe lesion, better vi sualized on prior exam. . No dilated ducts. SPLEEN: Normal size. No focal lesions. PANCREAS: No active inflammatory change. Sequelae of chronic pancreatitis with scattered parenchymal calcifications, stable. GALLBLADDER: Surgically absent. ADRENAL GLANDS: No significant masses or asymmetry. RIGHT KIDNEY AND URETER: No solid masses. Unchanged large upper pole right renal cyst No significa nt calcifications. No hydronephrosis or hydroureter. LEFT KIDNEY AND URETER: No solid masses. No significant calcifications. No hydronephrosis or hydr oureter. AORTA AND VESSELS: Scattered atherosclerosis without aneurysm. No dissection. Common origin of the celiac and SMA. Patent renals and ALICIA. RETROPERITONEUM: No retroperitoneal adenopathy, hemorrhage or masses. BOWEL AND PERITONEAL CAVITY: No masses or inflammatory changes. No free fluid or peritoneal masses. APPENDIX: Normal. PELVIS: Decompressed urinary bladder. Prostatomegaly with scattered prostate calcifications. Hydroc eles. ABDOMINAL WALL: Subcutaneous edema. No focal masses. No hernia. BONES: No acute bony abnormality. No suspicious osseous lesions. OTHER: No other significant finding. IMPRESSION: 1. No evidence of acute intra-abdominal/pelvic process. 2. No evidence of intra-abdominal/pelvic metastatic disease. 3. Sequelae of chronic pancreatitis. TECHNICAL DOCUMENTATION: JOB ID: [id number] Quality ID # [id number]: Final reports with documentation of one or more dose reduction techniques (e.g., Au tomated exposure control, adjustment of the mA and/or kV according to patient size, use of iterative reconstruction technique) 2010 [employer]- All Rights Reserved Reading location - IP/workstation name: [email or web address]
--- NOTE | 2019-06-17 11:21 | RADIOLOGY REPORT (SQ) ---
EXAM DESCRIPTION: CT CHEST WITH COMPLETED DATE/TIME: 06/17/2019 9:05 am REASON FOR STUDY: MALIGNANT NEOPLASM OF UPPER LOBE, LEFT BRONCHUS OR LUNG C34.12 MALIGNANT NEOPLASM OF UPPER LOBE, LEFT BRONCHUS OR BINH COMPARISON: 03/25/2019 TECHNIQUE: CT scan of the chest performed using helical scanning technique with dynamic intravenous contrast injection. Images reviewed with lung, soft tissue and bone windows. Reconstructed coronal and sagittal MPR and MIP images reviewed. All images stored on PACS. All CT scanners at this facility use dose modulation, iterative reconstruction, and/or weight based d osing when appropriate to reduce radiation dose to as low as reasonably achievable (ALARA). [facility]: Dose Right [facility]: CareDose [facility]: Dose Right [facility]: Teradose 4D [facility]: [employer] CONTRAST TYPE AND DOSE: 64 cc Omnipaque 350 RENAL FUNCTION: See abdomen RADIATION DOSE: CT Rad equipment meets quality standard of care and radiation dose reduction techniq ues were employed. CTDIvol: 4.6 - 4.8 mGy. DLP: 770 mGy-cm. . LIMITATIONS: None. FINDINGS: LUNGS AND PLEURA: There is decreased size of the dense consolidation within the left upper lobe with new area of cavitation at the apex. Irregular area of consolidation measures approximatel y 6.8 x 5.4 cm (series 2, image 20), previously 8.9 x 8.1 cm. Scattered adjacent air bronchograms no kathleen. There are irregular areas of centrilobular consolidation and ground-glass attenuation within th e left lower lobe, increased from prior with more focal area of consolidation measuring approximately 3.4 x3.1 cm (Series 6, image 47), increased in conspicuity from prior. New irregular 13 mm left arvin gular nodule (series 2, image 38). There is grossly stable size of the irregular nodule within the ri ght lower lobe measuring 13 mm (series 6, image 100). No large pleural effusion. No pneumothorax. HILAR AND MEDIASTINAL STRUCTURES: Stable 12 mm pretracheal node (series 2, image 25). No new discret e adenopathy. HEART AND VASCULAR STRUCTURES: No aneurysm or dissection. Scattered coronary atherosclerosis. Trace pericardial effusion. HARDWARE: None in the chest. UPPER ABDOMEN: See separate report of the CT of the abdomen. THYROID AND OTHER SOFT TISSUES: No masses. No adenopathy. BONES: No significant finding. OTHER: No other significant finding. IMPRESSION: 1. Evolution of the previously described left upper lobe masslike consolidation with de creased size compared to prior. New area of internal cavitation. 2. Increased size and conspicuity of patchy additional areas of consolidation within the left lower lobe and lingula as detailed above may represent additional disease or infectious/inflammatory compon ent. TECHNICAL DOCUMENTATION: JOB ID: [id number] Quality ID # 436: Final reports with documentation of one or more dose reduction techniques (e.g., Au tomated exposure control, adjustment of the mA and/or kV according to patient size, use of iterative reconstruction technique) 2010 [employer]- All Rights Reserved Reading location - IP/workstation name: [email or web address]
== END ==
LOC: RAD 08:05
PROVIDERS: ATTEND Internal Medicine Hematology & Oncology
DX: C34.12 Malignant neoplasm of upper lobe, left bronchus or lung (principal); I25.10 Atherosclerotic heart disease of native coronary artery without angina pectoris; I31.3 Pericardial effusion (noninflammatory); N28.1 Cyst of kidney, acquired
CPT/HCPCS: 71260; 74177

== ENCOUNTER 2019-07-02 11:02 | Day surgery (SDC) | payer MEDICARE, OTHER ==
[~2019-07-02 11:02] MED LIST changes: -ACETAMINOPHEN 0 MG/0 ML RTUPB IV ONE; +ACETAMINOPHEN 325 MG TABLET PO PRN; +CEFAZOLIN 1 GM/D5W RTU 1 GM/50 ML RTUPB IV PRN; -CEFOXITIN SODIUM 2 GM in DEXTROSE 5%-WATER 100 ML IV PRN; -DEXAMETHASONE SOD PHOSPHATE INJ 4 MG/1 ML VIAL ONE; -FENTANYL CITRATE INJ/PF 100 MCG/2 ML AMPUL ONE; -IBUPROFEN INJ 800 MG/8 ML VIAL IV PRN; -MIDAZOLAM 2 MG/2 ML INJ ONE; -ONDANSETRON HCL INJ/PF 4 MG/2 ML SDV ONE; -PHENYLEPHRINE HCL INJ/PF 10 MG/1 ML SDV ONE; -PREGABALIN 50 MG CAPSULE PO PRN; -PROPOFOL INJ 200 MG/20 ML VIAL IV ONE; -SUGAMMADEX SODIUM 200 MG/2 ML SDV IV ONE
[2019-07-02] MEDS ORDERED: LIDOCAINE 2% INJ-PF (20 MG/ML) 10 ML AMPUL ONE (12:09)
[2019-07-02] MEDS ORDERED: DEXAMETHASONE SOD PHOSPHATE INJ 4 MG/1 ML VIAL ONE (12:09)
[2019-07-02] MEDS ORDERED: FENTANYL CITRATE INJ/PF 100 MCG/2 ML AMPUL ONE (12:09)
[2019-07-02] MEDS ORDERED: ONDANSETRON HCL INJ/PF 4 MG/2 ML SDV ONE (12:09)
[2019-07-02] MEDS ORDERED: MIDAZOLAM 2 MG/2 ML INJ ONE (12:09)
[2019-07-02 12:10] LABS: INTERNATIONAL RATION (INR) 1.08; PARTIAL THROMBOPLASTIN TIME 34.8 SEC (23.5-35.8)
[2019-07-02] MEDS ORDERED: PROPOFOL INJ 200 MG/20 ML VIAL IV ONE (12:10)
[2019-07-02 12:13] LABS: HEMATOCRIT 37.4 % (37.9-51.0); HEMOGLOBIN 11.9 g/dL (13.5-17.0); MEAN CORPUSCULAR HGB CONC 31.8 g/dL (32.0-36.0); MEAN CORPUSCULAR VOLUME 76 fl (80-97); PLATELET COUNT 255 10^3/uL (150-450); RED BLOOD COUNT 4.96 10^6/uL (4.35-5.55); RED CELL DISTRIBUTION WIDTH 22.7 % (11.5-14.0); WHITE BLOOD COUNT 6.8 10^3/uL (4.0-10.5)
[2019-07-02] MEDS ORDERED: LIDOCAINE 1%/EPINEPHRINE INJ 20 ML VIAL ONE (12:13)
[2019-07-02] MEDS ORDERED: CEFAZOLIN 1 GM/D5W RTU 1 GM/50 ML RTUPB IV ONE (12:24)
[2019-07-02] MEDS ORDERED: FENTANYL CITRATE INJ/PF 100 MCG/2 ML AMPUL IV PRN ×3 (13:13)
[2019-07-02] MEDS ORDERED: MORPHINE SULFATE 10 MG/ML INJ IV PRN (13:13)
[2019-07-02] MEDS ORDERED: MEPERIDINE HCL/PF INJ 25 MG/1 ML DISP.SYRIN IV PRN (13:13)
[2019-07-02] MEDS ORDERED: DIPHENHYDRAMINE HCL 50 MG/ML VIAL IV PRN (13:13)
[2019-07-02] MEDS ORDERED: PROMETHAZINE HCL INJ 25 MG/1 ML VIAL IV PRN (13:13)
[2019-07-02] MEDS ORDERED: BUPIVACAINE HCL 0.25 % INJ/PF (2.5 MG/1 ML) 30 ML VIAL INJ ONE ×3 (13:20→13:22)
--- NOTE | 2019-07-02 13:53 | Operative Report ---
Operative Report DATE OF SURGERY: 07/02/19 PREOPERATIVE DIAGNOSIS: Stage III squamous cell carcinoma of the lung POSTOPERATIVE DIAGNOSIS: Same OPERATION: 1. Focused ultrasound of the left neck. 2. Ultrasound directed insertion of portacatheter right subclavian position. 3. Interpretation of intraoperative fluoroscopy SURGEON: DANK ENGLAND ANESTHESIA: LMAC TISSUE REMOVED OR ALTERED: None COMPLICATIONS: None ESTIMATED BLOOD LOSS: Scant INTRAOPERATIVE FINDINGS: See below PROCEDURE: The patient was seen in the preop holding area the right neck was marked, then the patient was taken to the main operating where LMAC anesthesia was induced. Arms were tucked in the supine position. Right neck and right chest wall are prepped and draped sterile fashion Surgical plan and surgical timeout were conducted. The right neck was scanned with a variable frequency linear transducer. Skin was in the status 1% plain lidocaine. Sebastian was made in the skin with 11 blade, and using ultrasound as a guide, the micro needle and wire was threaded into the right internal jugular vein. Suitable site for placement of the port was chosen in the right subclavian position. Skin was anesthetized 1% plain lidocaine, 3 cm incision was made over the right chest wall, several centimeters inferior to the right clavicle. A port pocket was developed large enough to accommodate a single-chamber port. The catheter was then trimmed the appropriate length, tunneled between the 2 incisions, attached to the port with the plastic ring. The port was tucked into the pocket. Under fluoroscopic guidance, the micro wire was transferred over to the conventional 0.030 inch guidewire using a 5 Eritrean introducer sheath. We then threaded the 8 Eritrean dilator sheath over the conventional guidewire, removed the guidewire dilator and threaded the catheter into the sheath. The sheath was removed leaving the catheter in appropriate position with the tip in the inferior vena cava. There is no evidence of ectopy. There is no evidence of kinking of the catheter along its tract. The catheter was tested for functionality by aspirating and flushing with heparinized saline. At this point felt the operation was complete. Sponge and needle counts correct. Wounds closed with 3-0 Vicryl, benzoin and Steri-Strips. Patient tolerated the procedure well, taken recovery in stable condition.
--- NOTE | 2019-07-02 13:56 | Discharge Summary ---
Discharge Summary (SDC) - Discharge Final Diagnosis: Squamous cell carcinoma the lung, stage III Date of Surgery: 07/02/19 Discharge Date: 07/02/19 Condition: Good Treatment or Instructions: Patient may resume preoperative medications, diet, activity. Use catheter. Return 2 weeks to [place] [facility]. Referrals: JAIR MENESES MD [Primary Care Provider] - Discharge Diet: As Tolerated Discharge Activity: Activity As Tolerated Home Care Assistance: None Needed Report the Following to Your Physician Immediately: Shortness of Breath, Increase in Pain, Fever over 101 Degrees
[2019-07-02 16:35] VITALS: BP 102/59
--- NOTE | 2019-07-03 09:20 | RADIOLOGY REPORT (SQ) ---
EXAM DESCRIPTION: FLUORO/CV PLACEMENT COMPLETED DATE/TIME: 07/02/2019 2:31 pm REASON FOR STUDY: PORTACATH PLCMT RIGHT SIDE ASST WITH FLUORO IN OR C34.12 MALIGNANT NEOPLASM OF UP PER LOBE, LEFT BRONCHUS OR BINH Z79.01 [facility] (CURRENT) USE OF ANTICOAGULANTS COMPARISON: None. FLUOROSCOPY TIME: 0.2 minutes. 3 images saved to PACS. TECHNIQUE: Intra-operative images acquired during surgical procedure to evaluate progress. NUMBER OF IMAGES: 3 images. LIMITATIONS: None. FINDINGS: Images of the chest acquired during port placement. IMPRESSION: IMAGE(S) OBTAINED DURING PROCEDURE. COMMENT: Quality ID 145: Final reports for procedures using fluoroscopy that document radiation exp osure indices, or exposure time and number of fluorographic images (if radiation exposure indices are not available) Please consult full operative report of the attending physician for description of the procedure. TECHNICAL DOCUMENTATION: JOB ID: [id number] [employer]- All Rights Reserved Reading location - IP/workstation name: [email or web address]
== END 2019-07-02 17:05 | disposition home or self-care (01) ==
LOC: OROUT 11:02
PROVIDERS: ATTEND Surgery
DX: C34.12 Malignant neoplasm of upper lobe, left bronchus or lung (principal); D64.9 Anemia, unspecified; I48.91 Unspecified atrial fibrillation; J44.9 Chronic obstructive pulmonary disease, unspecified; I63.9 Cerebral infarction, unspecified; I49.9 Cardiac arrhythmia, unspecified; K21.9 Gastro-esophageal reflux disease without esophagitis; M06.9 Rheumatoid arthritis, unspecified; K44.9 Diaphragmatic hernia without obstruction or gangrene; Z79.01 Long term (current) use of anticoagulants; Z86.73 Personal history of transient ischemic attack (TIA), and cerebral infarction without residual deficits; Z87.891 Personal history of nicotine dependence; Z89.619 Acquired absence of unspecified leg above knee; Z86.711 Personal history of pulmonary embolism
CPT/HCPCS: 36561; 36415; 84132; 85027; 85610; 85730; 77001; 00532; C1752; C1788; J2250; J0690; J1100; J3010; J3490 ×2; J2405; J2704; J1642; 532

== ENCOUNTER → 2019-09-05 | Outpatient (CLI) | payer MEDICARE, OTHER ==
--- NOTE | 2019-09-05 14:11 | RADIOLOGY REPORT (SQ) ---
EXAM DESCRIPTION: CT CHEST WITH; CT ABD/PELVIS WITH IV ONLY COMPLETED DATE/TIME: 09/05/2019 1:38 pm REASON FOR STUDY: C34.12 MALIGNANT NEOPLASM OF UPPER LOBE, LEFT BRONCHUS OR LUNG C34.12 MALIGNANT N EOPLASM OF UPPER LOBE, LEFT BRONCHUS OR BINH COMPARISON: PET-CT 02/05/2019 CT chest 03/25/2019 CT abdomen pelvis 06/17/2019 CONTRAST TYPE AND DOSE: contrast/concentration: Isovue 350.00 mg/ml; Total Contrast Delivered: 80.0 ml; Total Saline Delivered: 55.0 ml RENAL FUNCTION: Creatinine 0.7 TECHNIQUE: CT scan of the chest performed using helical scanning technique with dynamic intravenous contrast injection. Images reviewed with lung, soft tissue and bone windows. Reconstructed coronal a nd sagittal MPR images reviewed. All images stored on PACS. CT scan of the abdomen and pelvis performed with intravenous and without oral contrastusing helical s christel technique with dynamic intravenous contrast injection. Images reviewed with lung, soft tissu e and bone windows. Reconstructed coronal and sagittal MPR images reviewed. Delayed images for eval uation of the urinary system also acquired and evaluated. All images stored on PACS. All CT scanners at this facility use dose modulation, iterative reconstruction, and/or weight based d osing when appropriate to reduce radiation dose to as low as reasonably achievable (ALARA). [facility]: Dose Right [facility]: CareDose [facility]: Dose Right [facility]: Teradose 4D [facility]: [employer] RADIATION DOSE: CT Rad equipment meets quality standard of care and radiation dose reduction techniq ues were employed. CTDIvol: 5.6 - 5.9 mGy. DLP: 908 mGy-cm. . LIMITATIONS: None. FINDINGS: CHEST: LUNGS AND PLEURA: Post radiation therapy. There is no bandlike consolidation in the left upper lobe with volume loss and bronchiectasis. The 8.5 x 8 cm mass seen on PET-CT 01/26/2019 is no longer identi fied. There is minimal scarring in the right lateral costophrenic sulcus, unchanged from PET-CT 01/26/2019. This was non metabolic at that time. No pleural effusion. No pneumothorax. No acute infiltrates. No new pulmonary nodules. HILAR AND MEDIASTINAL STRUCTURES: No identified masses or abnormal nodes. HEART AND VASCULAR STRUCTURES: No aneurysm or dissection. No central pulmonary emboli. No pericardi al effusion. Moderate coronary artery calcifications HARDWARE: Right permanent central line tip superior vena cava THYROID AND OTHER SOFT TISSUES: No masses. No adenopathy. BONES: No significant finding. OTHER: No other significant finding. ABDOMEN AND PELVIS: LIVER: Normal size. No masses. No dilated ducts. SPLEEN: Normal size. No focal lesions. PANCREAS: Diffuse spotty calcifications throughout the pancreas from old pancreatitis. No CT evidenc e of acute peripancreatic inflammation or acute or chronic peripancreatic fluid collections. GALLBLADDER: Post cholecystectomy ADRENAL GLANDS: No significant masses or asymmetry. RIGHT KIDNEY AND URETER: No solid masses. No significant calcification. No hydronephrosis or hydroure ter. 6 cm cyst right upper pole kidney. LEFT KIDNEY AND URETER: No solid masses. No significant calcification. No hydronephrosis or hydrouret er. AORTA AND VESSELS: No aneurysm. No dissection. Renal arteries, SMA, celiac without stenosis. RETROPERITONEUM: No retroperitoneal adenopathy, hemorrhage or masses. BOWEL AND PERITONEAL CAVITY: No oral contrast. No masses or inflammatory changes. No free fluid or p eritoneal masses. APPENDIX: Normal. ABDOMINAL WALL: No masses. No hernias. PELVIS: No mass or free fluid. Normal bladder. BONES: No significant or acute findings. OTHER: No other significant finding. IMPRESSION: Post therapeutic changes left upper lobe with volume loss and bronchiectasis post radiat ion therapy. Left upper lobe mass is no longer identified. No CT evidence of widespread metastatic disease given history of lung cancer. TECHNICAL DOCUMENTATION: JOB ID: [id number] Quality ID # 436: Final reports with documentation of one or more dose reduction techniques (e.g., Au tomated exposure control, adjustment of the mA and/or kV according to patient size, use of iterative reconstruction technique) 2010 [employer]- All Rights Reserved Reading location - IP/workstation name: [email or web address]
== END ==
LOC: RAD 13:06
PROVIDERS: ATTEND Internal Medicine
DX: C34.12 Malignant neoplasm of upper lobe, left bronchus or lung (principal); J47.9 Bronchiectasis, uncomplicated
CPT/HCPCS: 71260; 74177

== ENCOUNTER → 2019-12-08 | Outpatient (CLI) | payer MEDICARE, OTHER ==
--- NOTE | 2019-12-08 14:50 | RADIOLOGY REPORT (SQ) ---
EXAM DESCRIPTION: CT CHEST WITH COMPLETED DATE/TIME: 12/08/2019 10:26 am REASON FOR STUDY: MALIGNANT NEOPLASM OF UPPER LOBE, LEFT BRONCHUS OR LUNG C34.12 MALIGNANT NEOPLASM OF UPPER LOBE, LEFT BRONCHUS OR BINH COMPARISON: 09/05/2019 TECHNIQUE: CT scan of the chest performed using helical scanning technique with dynamic intravenous contrast injection. Images reviewed with lung, soft tissue and bone windows. Reconstructed coronal and sagittal MPR and MIP images reviewed. All images stored on PACS. All CT scanners at this facility use dose modulation, iterative reconstruction, and/or weight based d osing when appropriate to reduce radiation dose to as low as reasonably achievable (ALARA). [facility]: Dose Right [facility]: CareDose [facility]: Dose Right [facility]: Teradose 4D [facility]: [employer] CONTRAST TYPE AND DOSE: 80 mL Omnipaque 350- low osmolar. RENAL FUNCTION: Creatinine 0.7 RADIATION DOSE: CT Rad equipment meets quality standard of care and radiation dose reduction techniq ues were employed. CTDIvol: 6.8 - 8.2 mGy. DLP: 1196 mGy-cm. . LIMITATIONS: None. FINDINGS: LUNGS AND PLEURA: Volume loss on the left. Post radiation changes in the left apex. No r ecurrent mass. Limited scarring in the right costophrenic sulcus no new pulmonary nodule. . HILAR AND MEDIASTINAL STRUCTURES: No identified masses or abnormal nodes. HEART AND VASCULAR STRUCTURES: No aneurysm or dissection. No central pulmonary emboli. No pericardi al effusion. HARDWARE: None in the chest. UPPER ABDOMEN: See separate report of the CT of the abdomen. THYROID AND OTHER SOFT TISSUES: No masses. No adenopathy. BONES: No significant finding. OTHER: No other significant finding. IMPRESSION: Stable radiation changes in the left lung with volume loss. No evidence of recurrent or metastatic disease in the thorax. TECHNICAL DOCUMENTATION: JOB ID: [id number] Quality ID # [id number]: Final reports with documentation of one or more dose reduction techniques (e.g., Au tomated exposure control, adjustment of the mA and/or kV according to patient size, use of iterative reconstruction technique) 2010 [employer]- All Rights Reserved Reading location - IP/workstation name: [email or web address]
--- NOTE | 2019-12-08 15:10 | RADIOLOGY REPORT (SQ) ---
EXAM DESCRIPTION: CT ABD/PELVIS WITH IV ONLY COMPLETED DATE/TIME: 12/08/2019 10:26 am REASON FOR STUDY: MALIGNANT NEOPLASM OF UPPER LOBE, LEFT BRONCHUS OR LUNG C34.12 MALIGNANT NEOPLASM OF UPPER LOBE, LEFT BRONCHUS OR BINH COMPARISON: 09/05/2019 TECHNIQUE: CT scan of the abdomen and pelvis performed using helical scanning technique with dynamic intravenous contrast injection. No oral contrast. Images reviewed with lung, soft tissue, and bone windows. Reconstructed coronal and sagittal MPR images reviewed. Delayed images for evaluation of the urinary system also acquired. All images stored on PACS. All CT scanners at this facility use dose modulation, iterative reconstruction, and/or weight based d osing when appropriate to reduce radiation dose to as low as reasonably achievable (ALARA). [facility]: Dose Right [facility]: CareDose [facility]: Dose Right [facility]: Teradose 4D [facility]: [employer] CONTRAST TYPE AND DOSE: contrast/concentration: Isovue 350.00 mg/ml; Total Contrast Delivered: 80.0 ml; Total Saline Delivered: 68.0 ml RENAL FUNCTION: Creatinine 0.7 RADIATION DOSE: . LIMITATIONS: None. FINDINGS: LOWER CHEST: See separate report of the CT of the chest. LIVER: Normal size. No masses. No dilated ducts. SPLEEN: Normal size. No focal lesions. PANCREAS: Stippled calcifications are present in the pancreas. GALLBLADDER: Surgically absent. ADRENAL GLANDS: No significant masses or asymmetry. RIGHT KIDNEY AND URETER: No solid masses. 5.5 cm lower pole cyst. No significant calcifications. No hydronephrosis or hydroureter. LEFT KIDNEY AND URETER: No solid masses. No significant calcifications. No hydronephrosis or hydr oureter. AORTA AND VESSELS: No aneurysm. No dissection. Renal arteries, SMA, celiac without stenosis. RETROPERITONEUM: No retroperitoneal adenopathy, hemorrhage or masses. BOWEL AND PERITONEAL CAVITY: No masses or inflammatory changes. No free fluid or peritoneal masses. APPENDIX: Normal. PELVIS: No mass. No free fluid. Normal bladder. ABDOMINAL WALL: No masses. No hernias. BONES: No significant or acute findings. OTHER: No other significant finding. IMPRESSION: 1. There is no evidence of metastatic disease in the abdomen or pelvis. 2. Chronic pancreatitis. TECHNICAL DOCUMENTATION: JOB ID: [id number] Quality ID # [id number]: Final reports with documentation of one or more dose reduction techniques (e.g., Au tomated exposure control, adjustment of the mA and/or kV according to patient size, use of iterative reconstruction technique) 2010 [employer]- All Rights Reserved Reading location - IP/workstation name: [email or web address]
== END ==
LOC: RAD 09:44
PROVIDERS: ATTEND Physician Assistant Medical
DX: C34.12 Malignant neoplasm of upper lobe, left bronchus or lung (principal); K86.1 Other chronic pancreatitis
CPT/HCPCS: 82565; 71260; 74177; J1642

== ENCOUNTER → 2019-12-30 | Outpatient (CLI) | payer MEDICARE, OTHER ==
--- NOTE | 2019-12-31 08:32 | RADIOLOGY REPORT (SQ) ---
EXAM DESCRIPTION: MRI LT UPPER JOINT WITHOUT COMPLETED DATE/TIME: 12/30/2019 7:52 pm REASON FOR STUDY: M75.52 BURSITIS OF LEFT SHOULDER M75.52 BURSITIS OF LEFT SHOULDER COMPARISON: None. TECHNIQUE: Left shoulder images acquired and stored on PACS. Multiplanar imaging to include fat sens itive sequences such as T1, water sensitive sequences such as FST2/STIR, cartilage sensitive sequence s such as FSPD/gradient-echo sequences. LIMITATIONS: None. FINDINGS: BONE MARROW AND CORTEX: No worrisome bone lesions or marrow replacement. No occult fractur es. JOINT OR BURSAL EFFUSION: Small effusion. Mild bursitis. GLENO-HUMERAL ARTICULATION: Normal articulation. No subluxation. No cystic change. No osteophytes or cartilage loss. ACROMION AND AC JOINT: Mild -moderate predominantly dorsal degenerative overgrowth. Type 2 acromio n with some narrowing along the anterior subacromial space. ROTATOR CUFF AND INTERVAL: Heterogeneous cuff, particularly along supraspinatus insertion. Suspect t endinosis and mild intrasubstance tearing. No full-thickness breech identified. Very minimal atroph y in the supraspinatus and infraspinatus muscles. LABRUM AND BICEPS LABRAL COMPLEX: Suspect low grade fraying in the biceps anchor. Biceps tendon lo oks intact. REMAINDER OF LABRUM AND IGHL : Diffuse blunting throughout the posterior labrum. PERIARTICULAR AND ADJACENT SOFT TISSUES: No masses or abnormal nodes. OTHER: No other significant finding. IMPRESSION: 1. Cuff disease. Includes tendinosis and mild intrasubstance partial tear but no full-thickness betty ch. Minimal fatty atrophy. 2. Other findings as above. Suspect low grade degenerative fraying in the superior labrum with diffu se degenerative blunting posteriorly. Biceps tendon intact. TECHNICAL DOCUMENTATION: JOB ID: [id number] 2010 [employer]- All Rights Reserved Reading location - IP/workstation name: [email or web address]
== END ==
LOC: RAD 18:35
PROVIDERS: ATTEND Orthopaedic Surgery
DX: M75.52 Bursitis of left shoulder (principal)

== ENCOUNTER → 2020-02-19 | Outpatient (CLI) | payer MEDICARE, OTHER ==
--- NOTE | 2020-02-19 10:07 | RADIOLOGY REPORT (SQ) ---
EXAM DESCRIPTION: CT CHEST WITH IMAGES COMPLETED DATE/TIME: 02/19/2020 9:33 am REASON FOR STUDY: LUNG CANCER C34.12 MALIGNANT NEOPLASM OF UPPER LOBE, LEFT BRONCHUS OR BINH COMPARISON: 12/08/2019 TECHNIQUE: CT scan of the chest performed using helical scanning technique with dynamic intravenous contrast injection. Images reviewed with lung, soft tissue and bone windows. Reconstructed coronal and sagittal MPR and MIP images reviewed. All images stored on PACS. All CT scanners at this facility use dose modulation, iterative reconstruction, and/or weight based d osing when appropriate to reduce radiation dose to as low as reasonably achievable (ALARA). [facility]: Dose Right [facility]: CareDose [facility]: Dose Right [facility]: Teradose 4D [facility]: [employer] CONTRAST TYPE AND DOSE: See separate report of the same date. RENAL FUNCTION: See separate report. RADIATION DOSE: . LIMITATIONS: None. FINDINGS: LUNGS AND PLEURA: Stable rind of tissue in the left apex with ipsilateral volume loss. No developing nodules in the left lung. Stable areas of peripheral scarring in the right lower lobe. No effusions. HILAR AND MEDIASTINAL STRUCTURES: No identified masses or abnormal nodes. HEART AND VASCULAR STRUCTURES: No aneurysm or dissection. No central pulmonary emboli. No pericardi al effusion. HARDWARE: None in the chest. UPPER ABDOMEN: See separate report of the CT of the abdomen. THYROID AND OTHER SOFT TISSUES: No masses. No adenopathy. BONES: No significant finding. OTHER: Stable position of right-sided port. IMPRESSION: Stable appearance of the chest. Postradiation changes left upper lobe. TECHNICAL DOCUMENTATION: JOB ID: [id number] Quality ID # 436: Final reports with documentation of one or more dose reduction techniques (e.g., Au tomated exposure control, adjustment of the mA and/or kV according to patient size, use of iterative reconstruction technique) 2010 [employer]- All Rights Reserved Reading location - IP/workstation name: [email or web address]
--- NOTE | 2020-02-19 10:10 | RADIOLOGY REPORT (SQ) ---
EXAM DESCRIPTION: CT ABD/PELVIS WITH IV ONLY IMAGES COMPLETED DATE/TIME: 02/19/2020 9:33 am REASON FOR STUDY: LUNG CANCER C34.12 MALIGNANT NEOPLASM OF UPPER LOBE, LEFT BRONCHUS OR BINH COMPARISON: 12/08/2019 TECHNIQUE: CT scan of the abdomen and pelvis performed using helical scanning technique with dynamic intravenous contrast injection. No oral contrast. Images reviewed with lung, soft tissue, and bone windows. Reconstructed coronal and sagittal MPR images reviewed. Delayed images for evaluation of the urinary system also acquired. All images stored on PACS. All CT scanners at this facility use dose modulation, iterative reconstruction, and/or weight based d osing when appropriate to reduce radiation dose to as low as reasonably achievable (ALARA). [facility]: Dose Right [facility]: CareDose [facility]: Dose Right [facility]: Teradose 4D [facility]: [employer] CONTRAST TYPE AND DOSE: contrast/concentration: Isovue 350.00 mg/ml; Total Contrast Delivered: 83.0 ml; Total Saline Delivered: 69.0 ml RENAL FUNCTION: GFR > 60. RADIATION DOSE: CT Rad equipment meets quality standard of care and radiation dose reduction techniq ues were employed. CTDIvol: 8.4 - 10.6 mGy. DLP: 1444 mGy-cm.. LIMITATIONS: None. FINDINGS: LOWER CHEST: See separate report of the CT of the chest. LIVER: Normal size. No masses. No dilated ducts. SPLEEN: Normal size. No focal lesions. PANCREAS: Calcifications consistent with chronic pancreatitis. GALLBLADDER: Surgically absent. ADRENAL GLANDS: No significant masses or asymmetry. RIGHT KIDNEY AND URETER: Large lower pole cyst. No solid mass. No significant calcifications. No hydronephrosis or hydroureter. LEFT KIDNEY AND URETER: No solid masses. No significant calcifications. No hydronephrosis or hydr oureter. AORTA AND VESSELS: No aneurysm. RETROPERITONEUM: No retroperitoneal adenopathy, hemorrhage or masses. BOWEL AND PERITONEAL CAVITY: No masses or inflammatory changes. No free fluid or peritoneal masses. APPENDIX: Normal. PELVIS: No mass. No free fluid. Normal bladder. ABDOMINAL WALL: No masses. No hernias. BONES: No significant or acute findings. OTHER: No other significant finding. IMPRESSION: No evidence of metastatic disease. TECHNICAL DOCUMENTATION: JOB ID: [id number] Quality ID # 436: Final reports with documentation of one or more dose reduction techniques (e.g., Au tomated exposure control, adjustment of the mA and/or kV according to patient size, use of iterative reconstruction technique) 2010 [employer]- All Rights Reserved Reading location - IP/workstation name: [email or web address]
== END ==
LOC: RAD 09:17
PROVIDERS: ATTEND Physician Assistant Medical
DX: C34.12 Malignant neoplasm of upper lobe, left bronchus or lung (principal)
CPT/HCPCS: 82565; 71260; 74177; J1642

== ENCOUNTER → 2020-06-14 | Outpatient (CLI) | payer MEDICARE, OTHER ==
--- NOTE | 2020-06-14 09:49 | RADIOLOGY REPORT (SQ) ---
EXAM DESCRIPTION: CT ABD/PELVIS WITH IV ONLY IMAGES COMPLETED DATE/TIME: 06/14/2020 9:19 am REASON FOR STUDY: C34.12 MALIGNANT NEOPLASM OF UPPER LOBE, LEFT BRONCHUS OR LUNG C34.12 MALIGNANT N EOPLASM OF UPPER LOBE, LEFT BRONCHUS OR BINH COMPARISON: 02/19/2020 TECHNIQUE: CT scan of the abdomen and pelvis performed using helical scanning technique with dynamic intravenous contrast injection. No oral contrast. Images reviewed with lung, soft tissue, and bone windows. Reconstructed coronal and sagittal MPR images reviewed. Delayed images for evaluation of the urinary system also acquired. All images stored on PACS. All CT scanners at this facility use dose modulation, iterative reconstruction, and/or weight based d osing when appropriate to reduce radiation dose to as low as reasonably achievable (ALARA). [facility]: Dose Right [facility]: CareDose [facility]: Dose Right [facility]: Teradose 4D [facility]: [email or web address] CONTRAST TYPE AND DOSE: Omnipaque 350 80 cc RENAL FUNCTION: Creatinine 0.8 RADIATION DOSE: . LIMITATIONS: None. FINDINGS: LOWER CHEST: See separate report of the CT of the chest. LIVER: Normal size. No masses. No dilated ducts. SPLEEN: Normal size. No focal lesions. PANCREAS: No focal masses. No ductal dilation. Scattered calcifications compatible with chronic hodge creatitis. No peripancreatic fluid or stranding. GALLBLADDER: Surgically absent. ADRENAL GLANDS: No significant masses or asymmetry. RIGHT KIDNEY AND URETER: Stable 5.5 cm right renal cyst. No significant calcifications. No hydron ephrosis or hydroureter. LEFT KIDNEY AND URETER: No solid masses. No significant calcifications. No hydronephrosis or hydr oureter. AORTA AND VESSELS: Aortoiliac atherosclerosis without aneurysm. Multifocal scattered iliac atheroscl erosis with diminutive common and external right iliac artery. No dissection. Renal arteries, SMA, c eliac without stenosis. RETROPERITONEUM: No retroperitoneal adenopathy, hemorrhage or masses. BOWEL AND PERITONEAL CAVITY: No masses or inflammatory changes. No free fluid or peritoneal masses. APPENDIX: Normal. PELVIS: Decompressed urinary bladder. Scattered prostatic calcifications. No pelvic free fluid, alvin nopathy or mass. ABDOMINAL WALL: No masses. No hernias. BONES: No acute bony abnormality. No suspicious lytic or blastic osseous lesions. Lower lumbar face t arthropathy. Evidence of prior right femoral intramedullary alka hardware. OTHER: No other significant finding. IMPRESSION: 1. No evidence of metastatic disease within the abdomen or pelvis. 2. No evidence of acute intra-abdominal/pelvic process. TECHNICAL DOCUMENTATION: JOB ID: [id number] Quality ID # 436: Final reports with documentation of one or more dose reduction techniques (e.g., Au tomated exposure control, adjustment of the mA and/or kV according to patient size, use of iterative reconstruction technique) 2010 [employer]- All Rights Reserved Reading location - IP/workstation name: [email or web address]
--- NOTE | 2020-06-14 09:54 | RADIOLOGY REPORT (SQ) ---
EXAM DESCRIPTION: CT CHEST WITH IMAGES COMPLETED DATE/TIME: 06/14/2020 9:19 am REASON FOR STUDY: C34.12 MALIGNANT NEOPLASM OF UPPER LOBE, LEFT BRONCHUS OR LUNG C34.12 MALIGNANT N EOPLASM OF UPPER LOBE, LEFT BRONCHUS OR BINH COMPARISON: 02/19/2020 TECHNIQUE: CT scan of the chest performed using helical scanning technique with dynamic intravenous contrast injection. Images reviewed with lung, soft tissue and bone windows. Reconstructed coronal and sagittal MPR and MIP images reviewed. All images stored on PACS. All CT scanners at this facility use dose modulation, iterative reconstruction, and/or weight based d osing when appropriate to reduce radiation dose to as low as reasonably achievable (ALARA). [facility]: Dose Right [facility]: CareDose [facility]: Dose Right [facility]: Teradose 4D [facility]: [employer] CONTRAST TYPE AND DOSE: contrast/concentration: Isovue 350.00 mmol/ml; Total Contrast Delivered: 80. 0 ml; Total Saline Delivered: 45.0 ml RENAL FUNCTION: See abdomen RADIATION DOSE: CT Rad equipment meets quality standard of care and radiation dose reduction techniq ues were employed. CTDIvol: 10.9 - 13.0 mGy. DLP: 1857 mGy-cm. . LIMITATIONS: None. FINDINGS: LUNGS AND PLEURA: Stable posttreatment change with left suprahilar and apical consolidatio n. No definitive mass although dense consolidation limits evaluation. No new airspace disease. No pleural effusion or pneumothorax. No new discrete masses. HILAR AND MEDIASTINAL STRUCTURES: No identified masses or abnormal nodes. HEART AND VASCULAR STRUCTURES: Normal heart size. No pericardial effusion. Scattered three-vessel c oronary atherosclerosis. HARDWARE: Right-sided chest port with catheter tip at cavoatrial junction. UPPER ABDOMEN: See separate report of the CT of the abdomen. THYROID AND OTHER SOFT TISSUES: Unchanged hypodense subcentimeter lesion within the right thyroid. N o new discrete mass. BONES: No acute bony abnormality. No suspicious lytic or blastic osseous lesions. OTHER: No other significant finding. IMPRESSION: 1. Stable left suprahilar and apical consolidation, likely post treatment related. No new evidence of intrathoracic metastatic disease. 2. No evidence of acute intrathoracic process. TECHNICAL DOCUMENTATION: JOB ID: [id number] Quality ID # 436: Final reports with documentation of one or more dose reduction techniques (e.g., Au tomated exposure control, adjustment of the mA and/or kV according to patient size, use of iterative reconstruction technique) 2010 [employer]- All Rights Reserved Reading location - IP/workstation name: [email or web address]
== END ==
LOC: RAD 08:47
PROVIDERS: ATTEND Internal Medicine
DX: C34.12 Malignant neoplasm of upper lobe, left bronchus or lung (principal)
CPT/HCPCS: 82565; 71260; 74177; J1642

== ENCOUNTER → 2020-08-09 | Outpatient (CLI) | payer MEDICARE, OTHER ==
--- NOTE | 2020-08-09 16:30 | RADIOLOGY REPORT (SQ) ---
EXAM DESCRIPTION: CT CHEST WITH IMAGES COMPLETED DATE/TIME: 08/09/2020 2:22 pm REASON FOR STUDY: C34.12 MALIGNANT NEOPLASM OF UPPER LOBE, LEFT BRONCHUS OR LUNG C34.12 MALIGNANT N EOPLASM OF UPPER LOBE, LEFT BRONCHUS OR BINH COMPARISON: None. TECHNIQUE: CT scan of the chest performed using helical scanning technique with dynamic intravenous contrast injection. Images reviewed with lung, soft tissue and bone windows. Reconstructed coronal and sagittal MPR and MIP images reviewed. All images stored on PACS. All CT scanners at this facility use dose modulation, iterative reconstruction, and/or weight based d osing when appropriate to reduce radiation dose to as low as reasonably achievable (ALARA). [facility]: Dose Right [facility]: CareDose [facility]: Dose Right [facility]: Teradose 4D [facility]: [employer] CONTRAST TYPE AND DOSE: contrast/concentration: Isovue 350.00 mmol/ml; Total Contrast Delivered: 80. 0 ml; Total Saline Delivered: 55.0 ml RENAL FUNCTION: Creatinine 0.8 RADIATION DOSE: CT Rad equipment meets quality standard of care and radiation dose reduction techniq ues were employed. CTDIvol: 15.0 mGy. DLP: 653 mGy-cm. . LIMITATIONS: None. FINDINGS: LUNGS AND PLEURA: Stable left apical and suprahilar consolidation from prior exam. No new discrete nodule or mass. No focal airspace disease. No pleural effusion or pneumothorax. HILAR AND MEDIASTINAL STRUCTURES: Left suprahilar consolidation, stable. No new discrete mediastinal adenopathy. HEART AND VASCULAR STRUCTURES: Normal heart size. Scattered coronary atherosclerosis. HARDWARE: Right-sided chest for with catheter tip at SVC. Right axillary surgical clips. UPPER ABDOMEN: No acute findings. Scattered pancreatic parenchymal calcifications. THYROID AND OTHER SOFT TISSUES: No masses. No adenopathy. BONES: No acute bony abnormality. No suspicious lytic or blastic osseous lesions. OTHER: No other significant finding. IMPRESSION: Stable left suprahilar and apical consolidation. No evidence of new intrathoracic metas tatic disease. TECHNICAL DOCUMENTATION: JOB ID: [id number] Quality ID # 436: Final reports with documentation of one or more dose reduction techniques (e.g., Au tomated exposure control, adjustment of the mA and/or kV according to patient size, use of iterative reconstruction technique) 2010 [employer]- All Rights Reserved Reading location - IP/workstation name: [email or web address]
== END ==
LOC: RAD 13:31
PROVIDERS: ATTEND Internal Medicine
DX: C34.12 Malignant neoplasm of upper lobe, left bronchus or lung (principal)
CPT/HCPCS: 82565; 71260; J1642

== ENCOUNTER 2020-09-01 09:19 | Day surgery (SDC) | payer MEDICARE, OTHER ==
[~2020-09-01 09:19] MED LIST changes: -ACETAMINOPHEN 325 MG TABLET PO PRN; +ALBUTEROL SULFATE 0.083% NEB 2.5 MG/3 ML AMPUL NEB PRN; +ATROPINE SULFATE INJ 0.4 MG/1 ML VIAL IM PRN; -CEFAZOLIN 1 GM/D5W RTU 1 GM/50 ML RTUPB IV PRN; +LIDOCAINE 4% INJ/PF (40 MG/ML) 5 ML AMPUL NEB PRN; +NORMAL SALINE 1000 ML 1,000 ML IV PRN; +PROMETHAZINE HCL INJ 25 MG/1 ML VIAL IM PRN
[2020-09-01] MEDS ORDERED: ALBUTEROL SULFATE 0.083% NEB 2.5 MG/3 ML AMPUL NEB ONE (10:51)
[2020-09-01] MEDS ORDERED: PROMETHAZINE HCL INJ 25 MG/1 ML VIAL ONE (10:51)
[2020-09-01] MEDS ORDERED: LIDOCAINE 2% VISCOUS SOLN 15 ML UDCUP ONE (10:51)
[2020-09-01] MEDS ORDERED: LIDOCAINE 4% INJ/PF (40 MG/ML) 5 ML AMPUL ONE (10:51)
[2020-09-01 11:04] LABS: ABSOLUTE BASOPHILS # (AUTO) 0.1 10^3/uL (0.0-0.2); ABSOLUTE EOSINOPHILS # (AUTO) 0.3 10^3/uL (0.0-0.6); ABSOLUTE LYMPHOCYTES (AUTO) 1.1 10^3/uL (0.5-4.7); ABSOLUTE MONOCYTES (AUTO) 0.4 10^3/uL (0.1-1.4); ABSOLUTE NEUT (AUTO) 4.5 10^3/uL (1.7-8.2); BASOPHILS % (AUTO) 0.8 % (0-2); EOSINOPHILS % (AUTO) 4.6 % (0-6); HEMOGLOBIN 13.3 g/dL (13.5-17.0); LYMPHOCYTES % (AUTO) 16.6 % (13-45); MEAN CORPUSCULAR HGB CONC 33.3 g/dL (32.0-36.0); MEAN CORPUSCULAR VOLUME 84 fl (80-97); MONOCYTES % (AUTO) 6.7 % (3-13); PLATELET COUNT 196 10^3/uL (150-450); RED BLOOD COUNT 4.77 10^6/uL (4.35-5.55); RED CELL DISTRIBUTION WIDTH 13.8 % (11.5-14.0); SEGMENTED NEUTROPHILS % (AUTO) 71.3 % (42-78); TOTAL CELLS COUNTED % (AUTO) 100 %; WHITE BLOOD COUNT 6.3 10^3/uL (4.0-10.5)
[2020-09-01 11:22] LABS: INTERNATIONAL RATION (INR) 1.02; PROTHROMBIN TIME 13.6 SEC (11.4-15.4)
[2020-09-01 11:24] LABS: PARTIAL THROMBOPLASTIN TIME 101.7 SEC (23.5-35.8)
[2020-09-01 11:27] LABS: ANION GAP 9 (5-19); BLOOD UREA NITROGEN 16 mg/dL (7-20); CALCIUM 9.5 mg/dL (8.4-10.2); CARBON DIOXIDE 30 mmol/L (22-30); CHLORIDE 102 mmol/L (98-107); GLUCOSE 110 mg/dL (75-110); POTASSIUM 3.7 mmol/L (3.6-5.0)
[2020-09-01] MEDS ORDERED: MIDAZOLAM 2 MG/2 ML INJ ONE (11:30)
[2020-09-01] MEDS ORDERED: FENTANYL CITRATE INJ/PF 100 MCG/2 ML AMPUL ONE (11:30)
[2020-09-01] MEDS ORDERED: LIDOCAINE 2% INJ-PF (20 MG/ML) 10 ML AMPUL ONE (11:30)
[2020-09-01] MEDS ORDERED: PROPOFOL INJ 200 MG/20 ML VIAL IV ONE (11:31)
[2020-09-01] MEDS ORDERED: DIPHENHYDRAMINE HCL 50 MG/ML VIAL IV PRN (12:05)
[2020-09-01] MEDS ORDERED: ONDANSETRON HCL INJ/PF 4 MG/2 ML SDV IV PRN (12:05)
[2020-09-01] MEDS ORDERED: MEPERIDINE HCL/PF INJ 25 MG/1 ML DISP.SYRIN IV PRN (12:05)
[2020-09-01] MEDS ORDERED: FENTANYL CITRATE INJ/PF 100 MCG/2 ML AMPUL IV PRN ×3 (12:05)
[2020-09-01] MEDS ORDERED: NALOXONE HCL INJ/PF 0.4 MG/1 ML SDV ONE (12:29)
--- NOTE | 2020-09-01 12:40 | Operative Report ---
Operative Report DATE OF SURGERY: 09/01/20 PREOPERATIVE DIAGNOSIS: Hemoptysis with a prior history of carcinoma of the left upper lung. 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 OPERATION: Fiberoptic bronchoscopy with brushings washings and biopsy. SURGEON: TOBIN FISHER ANESTHESIA: Moderate Sedation COMPLICATIONS: None ESTIMATED BLOOD LOSS: Less than 5 cc INTRAOPERATIVE FINDINGS: Endobronchial tumor in the left upper lobe orifice. PROCEDURE: Informed consent was obtained. The patient was prepped and draped in the usual fashion. Anesthesia was provided by the anesthesiologist. Fiberoptic bronchoscopy was performed via endotracheal tube placed in the OR. Bronchoscope was introduced via the endotracheal tube into the mid trachea. The mid trachea was noted to be normal. Attention was then focused to the right where the right mainstem right upper lobe bronchus intermedius right middle lobe right lower lobe bronchi as well as their segments and subsegments were visualized and were normal. Attention was then focused to the distal trachea. Where a trail of blood was noted to be leading into the left upper lobe orifice. The [place] of blood was followed to the apical subsegment of the left upper lobe. There and endobronchial tumor was noted to be occluding the orifice. Photographs washings brushings and biopsies were taken of this area. Patient tolerated procedure well. No excessive bleeding was noted. Specimens obtained were brushings washings and biopsy sent for hodge analysis. Patient was sent to recovery in good condition.
--- NOTE | 2020-09-01 12:45 | Discharge Summary ---
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 Date of Surgery: 09/01/20 Condition: Good Treatment or Instructions: Resume home medications. Referrals: JAIR MENESES MD [Primary Care Provider] - Discharge Diet: As Tolerated Discharge Activity: Activity As Tolerated
[2020-09-01 14:37] VITALS: BP 100/58
[2020-09-01] MEDS ORDERED: SUCCINYLCHOLINE CHLORIDE INJ 200 MG/10 ML VIAL ONE (16:01)
--- OUTSIDE RECORDS SUMMARY | 2020-09-02 18:20 | XMS REPORT ---
:1950 Author Organization [facility] Address [facility] [address] [place] [id number] Care Team Providers Name Role Phone Sandi Anaya Attending Clinician Unavailable Allergies, Adverse Reactions, Alerts Allergy Allergy Status Severity Reaction(s) Onset Inactive Treating Miguel norris Name Type Date Date Clinician FentaNYL Allergy Active (Ingredient to Drug (s): (Finding) fentanyl) Medications Ordered Filled Start Stop Current Ordering Indication Dosage Frequency Signature Comments Components Medication Medication Date Date Medication? Clinician (SIG) Name Name Sodium 2020-1 No 20mL Sodium Chloride 0-29 Chloride 00:00: 00 Sodium 2020-1 No 20mL Sodium Chloride 0-08 Chloride 00:00: 00 Sodium 2020-0 No 40mL Sodium Chloride 9-17 Chloride 00:00: 00 Fluticasone 2020-0 Yes Propionate 9-17 00:00: 00 Sodium 2020-0 No 20mL Sodium Chloride 8-27 Chloride 00:00: 00 Sodium 2020-0 No 20mL Sodium Chloride 8-06 Chloride 00:00: 00 Sodium 2020-0 No 20mL Sodium Chloride 7-16 Chloride 00:00: 00 Sodium 2020-0 No 20mL Sodium Chloride 6-25 Chloride 00:00: 00 Sodium 2020-0 No 20mL Sodium Chloride 6-04 Chloride 00:00: 00 Sodium 2020-0 No 20mL Sodium Chloride 5-14 Chloride 00:00: 00 Sodium 2020-0 No 20mL Sodium Chloride 4-23 Chloride 00:00: 00 Tussionex 2020-0 Yes 5mL Pennkinetic 4-23 ER 00:00: 00 Sodium 2020-0 No 20mL Sodium Chloride 4-02 Chloride 00:00: 00 Doxycycline 2020-0 2020- No 1 Hyclate 3-19 06-04 00:00: 10:44 00 :51 Sodium 2020-0 No 20mL Sodium Chloride 3-12 Chloride 00:00: 00 Sodium 2020-0 No 20mL Sodium Chloride 2-20 Chloride 00:00: 00 Sodium 2020-0 No 20mL Sodium Chloride 1-30 Chloride 00:00: 00 Sodium 2020-0 No 20mL Sodium Chloride 1-09 Chloride 00:00: 00 Potassium 2020-0 2020- No 20meq Chloride ER 1-09 10-22 00:00: 00:00 00 :00 Butenafine 2020-0 2020- No HCl 1-09 06-04 00:00: 10:44 00 :51 Sodium 2019-1 No 20mL Sodium Chloride 2-12 Chloride 00:00: 00 Sodium 2019-1 No 30mL Sodium Chloride 1-21 Chloride 00:00: 00 hydrOXYzine 2018-1 2020- No 1 HCl 1-21 06-04 00:00: 10:44 00 :51 Triamcinolo 2019-1 2020- No 1 ne 1-21 06-04 Acetonide 00:00: 10:44 00 :51 Sodium 2019-1 No 20mL Sodium Chloride 0-31 Chloride 00:00: 00 Nystatin 2019-1 2019- No 1 0-31 11-10 00:00: 00:00 00 :00 Sodium 2019-1 No 20mL Sodium Chloride 0-10 Chloride 00:00: 00 Sodium 2019-0 No 30mL Sodium Chloride 9-19 Chloride 00:00: 00 Cetirizine 2019-0 2020- No 1 HCl 9-19 06-04 00:00: 10:44 00 :56 Sodium 2019-0 No 30mL Sodium Chloride 8-29 Chloride 00:00: 00 Tessalon 2019-0 2020- No 1 Perles 8-29 06-04 00:00: 10:44 00 :51 Sodium 2019-0 No 20mL Sodium Chloride 8-08 Chloride 00:00: 00 Potassium 2019-0 2019- No 20meq Chloride 8-08 08-15 00:00: 00:00 00 :00 Sodium 2019-0 No 250mL Sodium Chloride 7-18 Chloride 00:00: 00 Levalbutero 2019-0 No .63mg Levalbuter l HCl 7-18 ol HCl 00:00: 00 Medrol 2019-0 2020- No 7-18 01-09 00:00: 12:27 00 :42 Augmentin 2019-0 2019- No 7-18 08-29 00:00: 14:15 00 :39 Levalbutero 2019-0 2019- No .63mg Levalbuter l HCl 718 07-18 ol HCl 00:00: 00:00 00 :00 Sodium 2019-0 No 30mL Sodium Chloride 6-27 Chloride 00:00: 00 Levaquin 2019-0 2019- No 1 6-20 08 00:00: 14:15 00 :39 Sodium 2019-0 No 30mL Sodium Chloride 6-06 Chloride 00:00: 00 Keytruda 2019-0 Yes 200mg (pembrolizu 6-06 mab) 00:00: 00 Sodium 2019-0 Yes 20mL Chloride 6-06 00:00: 00 Ondansetron 2018-0 2020- No 1 HCl 03-27 00:00: 12:27 00 :52 Promethazin 2019-0 2020- No 1 e HCl 03-27 00:00: 12:27 00 :52 Lovenox 2019-0 2019- No 60mg 4-10 05 00:00: 00:00 00 :00 hydrochloro No hydrochlor thiazide 25 othiazide mg po QD 25 mg po QD Tricor 1 No Tricor 1 tablket po tablket po qhs qhs Keytruda IV No Keytruda dose IV dose treatment q treatment 3 weeks q 3 weeks Biotin Yes 5000mg Cholecalcif Yes 1 verito Combivent Yes 1 Respimat Coumadin Yes .5 Gabapentin Yes 1 HydroCHLORO Yes 1 thiazide Magnesium Yes 1 Marinol Yes 1 Mucinex No 1 Allergy Simvastatin Yes 1 Tricor Yes 1 Xanax Yes 1 Biotin No 5000mg Cholecalcif No 1 verito Gabapentin No 1 Mucinex Yes 1 Allergy Problems Condition Condition Condition Status Onset Resolution Last Treatin g Comments Name Details Category Date Date Treatment Clinician Date Hemoptysis Hemoptysis Diagnosis active 2019-10 015 00:00: 00 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 00:00: 00 Hyperlipide Hyperlipide Problem Active gelacio gelacio 12-19 00:00: 00 Depressive Depressive Problem Active disorder Disorder 12-19 00:00: 00 Pulmonary Pulmonary Problem Active embolism Embolism 12-19 00:00: 00 Atrial Atrial Problem Active fibrillatio Fibrillatio 2 n n 00:00: 00 Cerebrovasc Cerebrovasc Problem Active ular ular 12-19 accident Accident 00:00: 00 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 Thrombosis 12-19 00:00: 00 Chronic Chronic Problem Active obstructive Obstructive 12-19 lung Lung 00:00: disease Disease 00 Sleep apnea Sleep Apnea Problem Active 12-19 00:00: 00 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 Knee 12-19 00:00: 00 History of History of Problem Active blood Blood 12-19 transfusion Transfusion 00:00: 00 Subacromial Subacromial Problem Active bursitis of Bursitis of 12-19 left Left 00:00: shoulder Shoulder 00 Pain of Pain of Problem Active 2018-10 left Left 2 shoulder Shoulder 00:00: joint Joint 00 Dyspnea Dyspnea Diagnosis active 05-08 00:00: 00 Patient Patient Diagnosis active encounter encounter 6-06 status status 00:00: 00 Patient Patient Diagnosis active encounter encounter 3 status status 00:00: 00 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0000-18.0000 MID% (test code = MID%) 5.3000 % 1.2000-11.2000 Neutrophils % (test code = Neutrophils %) 76.2000 % 48.900 0-69.9000 Lymphocytes % (test code = Lymphocytes %) 18.5000 % 22.400 0-43.6000 MCH (test code = MCH) 27.6000 pg 27.0000-34.0000 MPV (test code = MPV) 8.3000 fL 6.8000-10.6000 MCV (test code = MCV) 83.3000 fL 80.0000-94.0000 MCHC (test code = MCHC) 33.1000 g/dL 31.5000-36.0000 HGB (test code = HGB) 14.5000 g/dL 11.2000-18.0000 Lymphocytes (test code = Lymphocytes) 1.2000 1.2000-3.2 000 Neutrophils (test code = Neutrophils) 5.1000 1.5000-6.7 000 RBC (test code = RBC) 5.2600 3.7000-4.9000 WBC (test code = WBC) 6.7000 4.0000-10.0000 PLT (test code = PLT) 250.0000 140.0000-440.0000 MID (test code = MID) 0.4000 0.1000-1.1000 [id number] 16:12:00 Test Item Value Reference Range Comments PT (test code = PT) 12.4000 s 10.0000-14.0000 INR (test code = INR) 1.0000 0.0000-3.5000 Coumadin, Current [id number] 16:12:00 Test Item Value Reference Range Comments Coumadin, Current Dose (test code = Coumadin, Current X Dose) Coumadin, New Dose (test code = Coumadin, New Dose) X Return [id number] 16:12:00 Test Item Value Reference Range Comments Return Date (test code = Return Date) X [id number] 13:52:00 Test Item Value Reference Range Comments Creatinine (test code = Creatinine) 0.7600 mg/dL 0.7600-1.270 0 Cr Clearance (Est) (test code = Cr 106.9900 85.0000-125.0 000 Clearance (Est)) Glucose (test code = Glucose) 90.0000 mg/dL 65.0000-99.0000 BUN (test code = BUN) 9.0000 mg/dL 8.0000-27.0000 eGFR Obx-Bwrecao-Rbyybrmg (test code = 94.0000 eGFR Ayh-Zruznqn-Jknffloz) eGFR -Italian (test code = eGFR 109.0000 -Italian) BUN/Creat Ratio (test code = BUN/Creat 12.0000 10.0000-2 4.0000 Ratio) Sodium (test code = Sodium) 139.0000 mmol/L 134.0000-144.0000 Potassium (test code = Potassium) 3.5000 mmol/L 3.5000-5.2000 Chloride (test code = Chloride) 98.0000 mmol/L 96.0000-106.0000 CO2 (test code = CO2) 25.0000 mmol/L 20.0000-29.0000 Calcium (test code = Calcium) 9.8000 mg/dL 8.6000-10.2000 Protein, Total (test code = Protein, 7.1000 g/dL 6.0000-8.50 00 Total) Albumin (test code = Albumin) 4.5000 g/dL 3.8000-4.8000 Globulin (test code = Globulin) 2.6000 g/dL 1.5000-4.5000 A/G Ratio (test code = A/G Ratio) 1.7000 1.2000-2.2000 Bilirubin, Total (test code = Bilirubin, 0.5000 mg/dL 0.0000- Total) Alkaline Phosphatase (test code = Alkaline 58.0000 39.00 00-117.0000 Phosphatase) AST (SGOT) (test code = AST (SGOT)) 21.0000 0.0000-40.00 00 ALT (SGPT) (test code = ALT (SGPT)) 17.0000 0.0000-44.00 00 Iron, Total (test code = Iron, Total) 74.0000 38.0000-16 9.0000 TIBC (test code = TIBC) 436.0000 250.0000-450.0000 UIBC (test code = UIBC) 362.0000 111.0000-343.0000 % Iron Saturation (test code = % Iron 17.0000 % 15.0000-55 .0000 Saturation) Ferritin (test code = Ferritin) 296.0000 ng/mL 30.0000-400.0000 [id number] 13:52:00 Test Item Value Reference Range Comments UIBC (test code = UIBC) 362.0000 111.0000-343.0000 TIBC (test code = TIBC) 436.0000 250.0000-450.0000 Iron, Total (test code = Iron, Total) 74.0000 38.0000-16 9.0000 Glucose (test code = Glucose) 90.0000 mg/dL 65.0000-99.0000 Bilirubin, Total (test code = Bilirubin, 0.5000 mg/dL 0.0000- Total) BUN (test code = BUN) 9.0000 mg/dL 8.0000-27.0000 Creatinine (test code = Creatinine) 0.7600 mg/dL 0.7600-1.270 0 Calcium (test code = Calcium) 9.8000 mg/dL 8.6000-10.2000 Albumin (test code = Albumin) 4.5000 g/dL 3.8000-4.8000 Protein, Total (test code = Protein, 7.1000 g/dL 6.0000-8.50 00 Total) Globulin (test code = Globulin) 2.6000 g/dL 1.5000-4.5000 % Iron Saturation (test code = % Iron 17.0000 % 15.0000-55 .0000 Saturation) Alkaline Phosphatase (test code = Alkaline 58.0000 39.00 00-117.0000 Phosphatase) A/G Ratio (test code = A/G Ratio) 1.7000 1.2000-2.2000 BUN/Creat Ratio (test code = BUN/Creat 12.0000 10.0000-2 4.0000 Ratio) eGFR -Italian (test code = eGFR 109.0000 -Italian) eGFR Myt-Hcaehvc-Gxtkpeui (test code = 94.0000 eGFR Uwr-Aioaaod-Gglwfril) Sodium (test code = Sodium) 139.0000 mmol/L 134.0000-144.0000 Ferritin (test code = Ferritin) 296.0000 ng/mL 30.0000-400.0000 Cr Clearance (Est) (test code = Cr 106.9900 85.0000-125.0 000 Clearance (Est)) Chloride (test code = Chloride) 98.0000 mmol/L 96.0000-106.0000 Potassium (test code = Potassium) 3.5000 mmol/L 3.5000-5.2000 CO2 (test code = CO2) 25.0000 mmol/L 20.0000-29.0000 ALT (SGPT) (test code = ALT (SGPT)) 17.0000 0.0000-44.00 00 AST (SGOT) (test code = AST (SGOT)) 21.0000 0.0000-40.00 00 [id number] 11:57:00 Test Item Value Reference Range Comments WBC (test code = WBC) 6.0000 4.0000-10.0000 Lymphocytes % (test code = Lymphocytes %) 31.4000 % 22.400 0-43.6000 MID% (test code = MID%) 7.8000 % 1.2000-11.2000 Neutrophils % (test code = Neutrophils %) 60.8000 % 48.900 0-69.9000 Lymphocytes (test code = Lymphocytes) 1.9000 1.2000-3.2 000 MID (test code = MID) 0.4000 0.1000-1.1000 Neutrophils (test code = Neutrophils) 3.7000 1.5000-6.7 000 RBC (test code = RBC) 5.7200 3.7000-4.9000 HGB (test code = HGB) 15.3000 g/dL 11.1999-18.0000 HCT (test code = HCT) 47.7000 % 34.0000-44.0000 MCV (test code = MCV) 83.4000 fL 80.0000-94.0000 MCH (test code = MCH) 26.8000 pg 27.0000-34.0000 MCHC (test code = MCHC) 32.1000 g/dL 31.5000-36.0000 RDW (test code = RDW) 11.0000-18.0000 PLT (test code = PLT) 210.0000 140.0000-440.0000 MPV (test code = MPV) 8.9000 fL 6.8000-10.6000 [id number] 11:57:00 Test Item Value Reference Range Comments HCT (test code = HCT) 47.7000 % 34.0000-44.0000 RDW (test code = RDW) 11.0000-18.0000 MID% (test code = MID%) 7.8000 % 1.1999-11.2000 Lymphocytes % (test code = Lymphocytes %) 31.4000 % 22.400 0-43.6000 Neutrophils % (test code = Neutrophils %) 60.8000 % 48.900 0-69.9000 HGB (test code = HGB) 15.3000 g/dL 11.1999-18.0000 MCHC (test code = MCHC) 32.1000 g/dL 31.5000-36.0000 MCV (test code = MCV) 83.4000 fL 80.0000-94.0000 MPV (test code = MPV) 8.9000 fL 6.8000-10.6000 MCH (test code = MCH) 26.8000 pg 27.0000-34.0000 Neutrophils (test code = Neutrophils) 3.7000 1.5000-6.7 000 Lymphocytes (test code = Lymphocytes) 1.9000 1.2000-3.2 000 RBC (test code = RBC) 5.7200 3.7000-4.9000 MID (test code = MID) 0.4000 0.1000-1.1000 PLT (test code = PLT) 210.0000 140.0000-440.0000 WBC (test code = WBC) 6.0000 4.0000-10.0000 [id number] 11:36:00 Test Item Value Reference Range Comments PT (test code = PT) 12.0000 s 10.0000-14.0000 INR (test code = INR) 1.0000 0.0000-3.5000 Coumadin, Current [id number] 11:36:00 Test Item Value Reference Range Comments Coumadin, Current Dose (test code = holding for 1wk Coumadin, Current Dose) Coumadin, New Dose (test code = Coumadin, x New Dose) Return [id number] 11:36:00 Test Item Value Reference Range Comments Return Date (test code = Return Date) x [id number] 11:35:00 Test Item Value Reference Range Comments Creatinine (test code = Creatinine) 0.6000 mg/dL 0.5000-1.200 0 Cr Clearance (Est) (test code = Cr 137.9700 85.0000-125.0 000 Clearance (Est)) Glucose (test code = Glucose) 91.0000 mg/dL 70.0000-118.0000 BUN (test code = BUN) 11.0000 mg/dL 7.0000-22.0000 Sodium (test code = Sodium) 141.0000 mmol/L 128.0000-145.0000 Potassium (test code = Potassium) 3.5000 mmol/L 3.6000-5.1000 Chloride (test code = Chloride) 104.0000 mmol/L 96.0000-108.0000 CO2 (test code = CO2) 34.0000 mmol/L 18.0000-33.0000 Calcium (test code = Calcium) 9.7000 mg/dL 8.0000-10.3000 Alkaline Phosphatase (test code = Alkaline 43.0000 42.00 00-141.0000 Phosphatase) ALT (SGPT) (test code = ALT (SGPT)) 24.0000 10.0000-47.0 000 AST (SGOT) (test code = AST (SGOT)) 26.0000 11.0000-37.0 000 Bilirubin, Total (test code = Bilirubin, 0.5000 mg/dL 0.0000- 1.6000 Total) Albumin (test code = Albumin) 4.5000 g/dL 3.5000-5.5000 Protein, Total (test code = Protein, 6.3000 g/dL 6.4000-8.10 00 Total) eGFR -Italian (test code = eGFR 163.0000 60.0000- 200.0000 -Italian) eGFR Pgp-Rnxewrk-Lbfpcqty (test code = 134.0000 60.0000-2 00.0000 eGFR Bto-Hzqzast-Cpablogf) Alkaline [id number] 11:35:00 Test Item Value Reference Range Comments Alkaline Phosphatase (test code = Alkaline 43.0000 42.00 00-141.0000 Phosphatase) ALT (SGPT) (test code = ALT (SGPT)) 24.0000 10.0000-47.0 000 AST (SGOT) (test code = AST (SGOT)) 26.0000 11.0000-37.0 000 Chloride (test code = Chloride) 104.0000 mmol/L 96.0000-108.0000 Potassium (test code = Potassium) 3.5000 mmol/L 3.6000-5.1000 CO2 (test code = CO2) 34.0000 mmol/L 18.0000-33.0000 Cr Clearance (Est) (test code = Cr 137.9700 85.0000-125.0 000 Clearance (Est)) eGFR Wsc-Ofosmlc-Qfhzmkzc (test code = 134.0000 60.0000-2 00.0000 eGFR Dzq-Ozptkdc-Xivtdtli) eGFR -Italian (test code = eGFR 163.0000 60.0000- 200.0000 -Italian) Sodium (test code = Sodium) 141.0000 mmol/L 128.0000-145.0000 BUN (test code = BUN) 11.0000 mg/dL 7.0000-22.0000 Glucose (test code = Glucose) 91.0000 mg/dL 70.0000-118.0000 Protein, Total (test code = Protein, 6.3000 g/dL 6.4000-8.10 00 Total) Albumin (test code = Albumin) 4.5000 g/dL 3.5000-5.5000 Calcium (test code = Calcium) 9.7000 mg/dL 8.0000-10.3000 Bilirubin, Total (test code = Bilirubin, 0.5000 mg/dL 0.0000- 1.6000 Total) Creatinine (test code = Creatinine) 0.6000 mg/dL 0.5000-1.200 0 T3 [id number] 14:32:00 Test Item Value Reference Range Comments T3 Uptake (test code = T3 Uptake) 28.0000 % 24.0000-39.000 0 T4 (test code = T4) 9.1000 4.5000-12.0000 FTI (test code = FTI) 2.5000 1.2000-4.9000 TSH (test code = TSH) 0.6730 0.4500-4.5000 T3 (test code = T3) 179.0000 ng/dL 71.0000-180.0000 [id number] 14:32:00 Test Item Value Reference Range Comments T4 (test code = T4) 9.1000 4.5000-12.0000 T3 (test code = T3) 179.0000 ng/dL 71.0000-180.0000 FTI (test code = FTI) 2.5000 1.2000-4.9000 T3 Uptake (test code = T3 Uptake) 28.0000 % 24.0000-39.000 0 TSH (test code = TSH) 0.6730 0.4500-4.5000 [id number] 11:12:00 Test Item Value Reference Range Comments WBC (test code = WBC) 4.4000 4.0000-10.0000 Lymphocytes % (test code = Lymphocytes %) 28.5000 % 22.400 0-43.6000 MID% (test code = MID%) 9.3000 % 1.2000-11.2000 Neutrophils % (test code = Neutrophils %) 62.2000 % 48.900 0-69.9000 Lymphocytes (test code = Lymphocytes) 1.2000 1.2000-3.2 000 MID (test code = MID) 0.5000 0.1000-1.1000 Neutrophils (test code = Neutrophils) 2.7000 1.5000-6.7 000 RBC (test code = RBC) 5.1000 3.7000-4.9000 HGB (test code = HGB) 13.8000 g/dL 11.2000-18.0000 HCT (test code = HCT) 42.5000 % 34.0000-44.0000 MCV (test code = MCV) 83.2000 fL 80.0000-94.0000 MCH (test code = MCH) 27.1000 pg 27.0000-34.0000 MCHC (test code = MCHC) 32.6000 g/dL 31.5000-36.0000 RDW (test code = RDW) 14.6000 11.0000-18.0000 PLT (test code = PLT) 213.0000 140.0000-440.0000 MPV (test code = MPV) 8.8000 fL 6.8000-10.6000 [id number] 11:12:00 Test Item Value Reference Range Comments MID% (test code = MID%) 9.3000 % 1.2000-11.1999 HCT (test code = HCT) 42.5000 % 34.0000-44.0000 Neutrophils % (test code = Neutrophils %) 62.2000 % 48.900 0-69.9000 Lymphocytes % (test code = Lymphocytes %) 28.5000 % 22.400 0-43.6000 RDW (test code = RDW) 14.6000 11.0000-18.0000 MCH (test code = MCH) 27.1000 pg 27.0000-34.0000 MPV (test code = MPV) 8.8000 fL 6.8000-10.6000 MCV (test code = MCV) 83.2000 fL 80.0000-94.0000 MCHC (test code = MCHC) 32.6000 g/dL 31.5000-36.0000 HGB (test code = HGB) 13.8000 g/dL 11.2000-18.0000 Lymphocytes (test code = Lymphocytes) 1.2000 1.2000-3.2 000 Neutrophils (test code = Neutrophils) 2.7000 1.5000-6.7 000 RBC (test code = RBC) 5.1000 3.7000-4.9000 WBC (test code = WBC) 4.4000 4.0000-10.0000 PLT (test code = PLT) 213.0000 140.0000-440.0000 MID (test code = MID) 0.5000 0.1000-1.1000 [id number] 11:11:00 Test Item Value Reference Range Comments Creatinine (test code = Creatinine) 0.6000 mg/dL 0.5000-1.200 0 Cr Clearance (Est) (test code = Cr 82.7800 85.0000-125.0 000 Clearance (Est)) Glucose (test code = Glucose) 149.0000 mg/dL 70.0000-118.0000 BUN (test code = BUN) 16.0000 mg/dL 7.0000-22.0000 Sodium (test code = Sodium) 139.0000 mmol/L 128.0000-145.0000 Potassium (test code = Potassium) 3.1000 mmol/L 3.6000-5.1000 Chloride (test code = Chloride) 102.0000 mmol/L 96.0000-108.0000 CO2 (test code = CO2) 34.0000 mmol/L 18.0000-33.0000 Calcium (test code = Calcium) 9.3400 mg/dL 8.0000-10.3000 Alkaline Phosphatase (test code = Alkaline 44.0000 42.00 00-141.0000 Phosphatase) ALT (SGPT) (test code = ALT (SGPT)) 16.0000 10.0000-47.0 000 AST (SGOT) (test code = AST (SGOT)) 21.0000 11.0000-37.0 000 Bilirubin, Total (test code = Bilirubin, 0.4000 mg/dL 0.0000- 1.6000 Total) Albumin (test code = Albumin) 4.2000 g/dL 3.5000-5.5000 Protein, Total (test code = Protein, 5.9000 g/dL 6.4000-8.10 00 Total) eGFR -Italian (test code = eGFR 163.0000 60.0000- 200.0000 -Italian) eGFR Bcw-Jocltta-Watetyvk (test code = 134.0000 60.0000-2 00.0000 eGFR Fsy-Ynyltnk-Wfcgovcp) Magnesium (test code = Magnesium) 1.5000 mg/dL 1.6000-2.3000 [id number] 11:11:00 Test Item Value Reference Range Comments Magnesium (test code = Magnesium) 1.5000 mg/dL 1.6000-2.3000 Glucose (test code = Glucose) 149.0000 mg/dL 70.0000-118.0000 BUN (test code = BUN) 16.0000 mg/dL 7.0000-22.0000 Calcium (test code = Calcium) 9.3400 mg/dL 8.0000-10.3000 Creatinine (test code = Creatinine) 0.6000 mg/dL 0.5000-1.200 0 Bilirubin, Total (test code = Bilirubin, 0.4000 mg/dL 0.0000- 1.6000 Total) Albumin (test code = Albumin) 4.2000 g/dL 3.5000-5.5000 Protein, Total (test code = Protein, 5.9000 g/dL 6.4000-8.10 00 Total) Alkaline Phosphatase (test code = Alkaline 44.0000 42.00 00-141.0000 Phosphatase) Sodium (test code = Sodium) 139.0000 mmol/L 128.0000-145.0000 eGFR Vgo-Iyhiirc-Jyjodwah (test code = 134.0000 60.0000-2 00.0000 eGFR Jjb-Abnmdvm-Zjyxbiop) Cr Clearance (Est) (test code = Cr 82.7800 85.0000-125.0 000 Clearance (Est)) eGFR -Italian (test code = eGFR 163.0000 60.0000- 200.0000 -Italian) CO2 (test code = CO2) 34.0000 mmol/L 18.0000-33.0000 Potassium (test code = Potassium) 3.1000 mmol/L 3.6000-5.1000 Chloride (test code = Chloride) 102.0000 mmol/L 96.0000-108.0000 AST (SGOT) (test code = AST (SGOT)) 21.0000 11.0000-37.0 000 ALT (SGPT) (test code = ALT (SGPT)) 16.0000 10.0000-47.0 000 [id number] 13:45:00 Test Item Value Reference Range Comments TSH (test code = TSH) 0.3910 0.4500-4.5000 T3 Uptake (test code = T3 Uptake) 30.0000 % 24.0000-39.000 0 T4 (test code = T4) 9.4000 4.5000-12.0000 FTI (test code = FTI) 2.8000 1.2000-4.9000 T4, Free (test code = T4, Free) 1.3700 ng/dL 0.8200-1.7700 T3 (test code = T3) 158.0000 ng/dL 71.0000-180.0000 [id number] 13:45:00 Test Item Value Reference Range Comments FTI (test code = FTI) 2.8000 1.2000-4.9000 T3 Uptake (test code = T3 Uptake) 30.0000 % 24.0000-39.000 0 T4 (test code = T4) 9.4000 4.5000-12.0000 T4, Free (test code = T4, Free) 1.3700 ng/dL 0.8200-1.7700 T3 (test code = T3) 158.0000 ng/dL 71.0000-180.0000 TSH (test code = TSH) 0.3910 0.4500-4.5000 [id number] 10:03:00 Test Item Value Reference Range Comments PT (test code = PT) 35.8000 s 10.0000-14.0000 INR (test code = INR) 3.0000 0.0000-3.5000 Coumadin, Current [id number] 10:03:00 Test Item Value Reference Range Comments Coumadin, Current Dose (test code = Coumadin, Current 2.5qd Dose) Coumadin, New Dose (test code = Coumadin, New Dose) x Return [id number] 10:03:00 Test Item Value Reference Range Comments Return Date (test code = Return Date) x Coumadin, New [id number] 10:03:00 Test Item Value Reference Range Comments Coumadin, New Dose (test code = Coumadin, New Dose) x Coumadin, Current Dose (test code = Coumadin, Current 2.5qd Dose) [id number] 10:00:00 Test Item Value Reference Range Comments Magnesium (test code = Magnesium) 1.8000 mg/dL 1.6000-2.3000 [id number] 09:59:00 Test Item Value Reference Range Comments WBC (test code = WBC) 4.9000 4.0000-10.0000 Lymphocytes % (test code = Lymphocytes %) 26.6000 % 22.400 0-43.6000 MID% (test code = MID%) 7.4000 % 1.2000-11.2000 Neutrophils % (test code = Neutrophils %) 66.0000 % 48.900 0-69.9000 Lymphocytes (test code = Lymphocytes) 1.3000 1.2000-3.2 000 MID (test code = MID) 0.4000 0.1000-1.1000 Neutrophils (test code = Neutrophils) 3.2000 1.5000-6.7 000 RBC (test code = RBC) 5.4600 3.7000-4.9000 HGB (test code = HGB) 14.4000 g/dL 11.2000-18.0000 HCT (test code = HCT) 45.9000 % 34.0000-44.0000 MCV (test code = MCV) 84.1000 fL 80.0000-94.0000 MCH (test code = MCH) 26.3000 pg 27.0000-34.0000 MCHC (test code = MCHC) 31.3000 g/dL 31.5000-36.0000 RDW (test code = RDW) 14.8000 11.0000-18.0000 PLT (test code = PLT) 236.0000 140.0000-440.0000 MPV (test code = MPV) 8.5000 fL 6.8000-10.6000 [id number] 09:59:00 Test Item Value Reference Range Comments Creatinine (test code = Creatinine) 0.7000 mg/dL 0.5000-1.200 0 Cr Clearance (Est) (test code = Cr 70.9600 85.0000-125.0 000 Clearance (Est)) Glucose (test code = Glucose) 153.0000 mg/dL 70.0000-118.0000 BUN (test code = BUN) 17.0000 mg/dL 7.0000-22.0000 Sodium (test code = Sodium) 143.0000 mmol/L 128.0000-145.0000 Potassium (test code = Potassium) 3.6000 mmol/L 3.6000-5.1000 Chloride (test code = Chloride) 106.0000 mmol/L 96.0000-108.0000 CO2 (test code = CO2) 31.0000 mmol/L 18.0000-33.0000 Calcium (test code = Calcium) 8.8200 mg/dL 8.0000-10.3000 Alkaline Phosphatase (test code = Alkaline 46.0000 42.00 00-141.0000 Phosphatase) ALT (SGPT) (test code = ALT (SGPT)) 20.0000 10.0000-47.0 000 AST (SGOT) (test code = AST (SGOT)) 20.0000 11.0000-37.0 000 Bilirubin, Total (test code = Bilirubin, 0.4000 mg/dL 0.0000- 1.6000 Total) Albumin (test code = Albumin) 4.0000 g/dL 3.5000-5.5000 Protein, Total (test code = Protein, 6.3000 g/dL 6.4000-8.10 00 Total) eGFR -Italian (test code = eGFR 136.0000 60.0000- 200.0000 -Italian) eGFR Akl-Sejjfcy-Lpiffwzf (test code = 112.0000 60.0000-2 00.0000 eGFR Dux-Pwrqfjr-Xdlpnfmi) [id number] 09:59:00 Test Item Value Reference Range Comments RBC (test code = RBC) 5.4600 3.7000-4.9000 MID (test code = MID) 0.4000 0.1000-1.1000 PLT (test code = PLT) 236.0000 140.0000-440.0000 WBC (test code = WBC) 4.9000 4.0000-10.0000 Neutrophils (test code = Neutrophils) 3.2000 1.5000-6.7 000 Lymphocytes (test code = Lymphocytes) 1.3000 1.2000-3.2 000 HGB (test code = HGB) 14.4000 g/dL 11.2000-18.0000 MCHC (test code = MCHC) 31.3000 g/dL 31.5000-36.0000 MCV (test code = MCV) 84.1000 fL 80.0000-94.0000 MPV (test code = MPV) 8.5000 fL 6.8000-10.6000 MCH (test code = MCH) 26.3000 pg 27.0000-34.0000 HCT (test code = HCT) 45.9000 % 34.0000-44.0000 Lymphocytes % (test code = Lymphocytes %) 26.6000 % 22.400 0-43.6000 Neutrophils % (test code = Neutrophils %) 66.0000 % 48.900 0-69.9000 MID% (test code = MID%) 7.4000 % 1.2000-11.2000 RDW (test code = RDW) 14.8000 11.0000-18.0000 [id number] 09:59:00 Test Item Value Reference Range Comments Glucose (test code = Glucose) 153.0000 mg/dL 70.0000-118.0000 BUN (test code = BUN) 17.0000 mg/dL 7.0000-22.0000 Protein, Total (test code = Protein, 6.3000 g/dL 6.4000-8.10 00 Total) Albumin (test code = Albumin) 4.0000 g/dL 3.5000-5.5000 Bilirubin, Total (test code = Bilirubin, 0.4000 mg/dL 0.0000- 1.6000 Total) Creatinine (test code = Creatinine) 0.7000 mg/dL 0.5000-1.200 0 Calcium (test code = Calcium) 8.8200 mg/dL 8.0000-10.3000 Alkaline Phosphatase (test code = Alkaline 46.0000 42.00 00-141.0000 Phosphatase) eGFR Lep-Fvvilpc-Qnzkoojj (test code = 112.0000 60.0000-2 00.0000 eGFR Rxo-Svtdhpj-Fheekqlk) Sodium (test code = Sodium) 143.0000 mmol/L 128.0000-145.0000 eGFR -Italian (test code = eGFR 136.0000 60.0000- 200.0000 -Italian) Cr Clearance (Est) (test code = Cr 70.9600 85.0000-125.0 000 Clearance (Est)) ALT (SGPT) (test code = ALT (SGPT)) 20.0000 10.0000-47.0 000 AST (SGOT) (test code = AST (SGOT)) 20.0000 11.0000-37.0 000 Chloride (test code = Chloride) 106.0000 mmol/L 96.0000-108.0000 Potassium (test code = Potassium) 3.6000 mmol/L 3.6000-5.1000 CO2 (test code = CO2) 31.0000 mmol/L 18.0000-33.0000 [id number] 14:00:00 Test Item Value Reference Range Comments TSH (test code = TSH) 0.9280 0.4500-4.5000 T3 Uptake (test code = T3 Uptake) 32.0000 % 24.0000-39.000 0 T4 (test code = T4) 9.3000 4.5000-12.0000 FTI (test code = FTI) 3.0000 1.2000-4.9000 [id number] 14:00:00 Test Item Value Reference Range Comments FTI (test code = FTI) 3.0000 1.2000-4.9000 T3 Uptake (test code = T3 Uptake) 32.0000 % 24.0000-39.000 0 T4 (test code = T4) 9.3000 4.5000-12.0000 TSH (test code = TSH) 0.9280 0.4500-4.5000 [id number] 10:02:00 Test Item Value Reference Range Comments PT (test code = PT) 29.5000 s 10.0000-14.0000 INR (test code = INR) 2.5000 0.0000-3.5000 Coumadin, Current [id number] 10:02:00 Test Item Value Reference Range Comments Coumadin, Current Dose (test code = Coumadin, Current 2.5qd Dose) Coumadin, New Dose (test code = Coumadin, New Dose) x Return [id number] 10:02:00 Test Item Value Reference Range Comments Return Date (test code = Return Date) x [id number] 10:01:00 Test Item Value Reference Range Comments Creatinine (test code = Creatinine) 0.7000 mg/dL 0.5000-1.200 0 Cr Clearance (Est) (test code = Cr 70.9600 85.0000-125.0 000 Clearance (Est)) Glucose (test code = Glucose) 95.0000 mg/dL 70.0000-118.0000 BUN (test code = BUN) 17.0000 mg/dL 7.0000-22.0000 Sodium (test code = Sodium) 143.0000 mmol/L 128.0000-145.0000 Potassium (test code = Potassium) 3.8000 mmol/L 3.6000-5.1000 Chloride (test code = Chloride) 108.0000 mmol/L 96.0000-108.0000 CO2 (test code = CO2) 31.0000 mmol/L 18.0000-33.0000 Calcium (test code = Calcium) 9.1800 mg/dL 8.0000-10.3000 Alkaline Phosphatase (test code = Alkaline 49.0000 42.00 00-141.0000 Phosphatase) ALT (SGPT) (test code = ALT (SGPT)) 20.0000 10.0000-47.0 000 AST (SGOT) (test code = AST (SGOT)) 21.0000 11.0000-37.0 000 Bilirubin, Total (test code = Bilirubin, 0.4000 mg/dL 0.0000- 1.6000 Total) Albumin (test code = Albumin) 4.5000 g/dL 3.5000-5.5000 Protein, Total (test code = Protein, 6.5000 g/dL 6.4000-8.10 00 Total) eGFR -Italian (test code = eGFR 136.0000 60.0000- 200.0000 -Italian) eGFR Jda-Rwrxvks-Jxpvvhis (test code = 112.0000 60.0000-2 00.0000 eGFR Dwa-Thyfjdb-Fxchdmgi) Magnesium (test code = Magnesium) 1.9000 mg/dL 1.6000-2.3000 [id number] 10:01:00 Test Item Value Reference Range Comments WBC (test code = WBC) 5.5000 4.0000-10.0000 Lymphocytes % (test code = Lymphocytes %) 23.8000 % 22.400 0-43.6000 MID% (test code = MID%) 6.9000 % 1.2000-11.2000 Neutrophils % (test code = Neutrophils %) 69.3000 % 48.900 0-69.9000 Lymphocytes (test code = Lymphocytes) 1.3000 1.2000-3.2 000 MID (test code = MID) 0.4000 0.1000-1.1000 Neutrophils (test code = Neutrophils) 3.8000 1.5000-6.7 000 RBC (test code = RBC) 5.6200 3.7000-4.9000 HGB (test code = HGB) 14.8000 g/dL 11.2000-18.0000 HCT (test code = HCT) 46.0000 % 34.0000-44.0000 MCV (test code = MCV) 81.9000 fL 80.0000-94.0000 MCH (test code = MCH) 26.4000 pg 27.0000-34.0000 MCHC (test code = MCHC) 32.2000 g/dL 31.5000-36.0000 RDW (test code = RDW) 15.3000 11.0000-18.0000 PLT (test code = PLT) 261.0000 140.0000-440.0000 MPV (test code = MPV) 8.3000 fL 6.8000-10.6000 [id number] 10:01:00 Test Item Value Reference Range Comments BUN (test code = BUN) 17.0000 mg/dL 7.0000-22.0000 Magnesium (test code = Magnesium) 1.9000 mg/dL 1.6000-2.3000 Glucose (test code = Glucose) 95.0000 mg/dL 70.0000-118.0000 Calcium (test code = Calcium) 9.1800 mg/dL 8.0000-10.3000 Creatinine (test code = Creatinine) 0.7000 mg/dL 0.5000-1.200 0 Bilirubin, Total (test code = Bilirubin, 0.4000 mg/dL 0.0000- 1.6000 Total) Albumin (test code = Albumin) 4.5000 g/dL 3.5000-5.5000 Protein, Total (test code = Protein, 6.5000 g/dL 6.4000-8.10 00 Total) Alkaline Phosphatase (test code = Alkaline 49.0000 42.00 00-141.0000 Phosphatase) Sodium (test code = Sodium) 143.0000 mmol/L 128.0000-145.0000 eGFR Iuq-Arjyojc-Okksowpr (test code = 112.0000 60.0000-2 00.0000 eGFR Ett-Bsriexx-Xzrzdeye) Cr Clearance (Est) (test code = Cr 70.9600 85.0000-125.0 000 Clearance (Est)) eGFR -Italian (test code = eGFR 136.0000 60.0000- 200.0000 -Italian) Chloride (test code = Chloride) 108.0000 mmol/L 96.0000-108.0000 CO2 (test code = CO2) 31.0000 mmol/L 18.0000-33.0000 Potassium (test code = Potassium) 3.8000 mmol/L 3.6000-5.1000 AST (SGOT) (test code = AST (SGOT)) 21.0000 11.0000-37.0 000 ALT (SGPT) (test code = ALT (SGPT)) 20.0000 10.0000-47.0 000 T4, [id number] 12:05:00 Test Item Value Reference Range Comments T4, Free (test code = T4, Free) 1.4900 ng/dL 0.8200-1.7700 TSH (test code = TSH) 0.7080 0.4500-4.5000 T3, Free (test code = T3, Free) [facility] [id number] 12:05:00 Test Item Value Reference Range Comments [facility] Comments (test QNS Quantity was not sufficient code = [facility] Comments) for analysis. TEST: 242017 Triiodothyronine (T3), Free T3, [id number] 12:05:00 Test Item Value Reference Range Comments T3, Free (test code = T3, Free) T4, Free (test code = T4, Free) 1.4900 ng/dL 0.8200-1.7700 TSH (test code = TSH) 0.7080 0.4500-4.5000 [id number] 09:42:00 Test Item Value Reference Range Comments PT (test code = PT) 22.9000 s 10.0000-14.0000 INR (test code = INR) 1.9000 0.0000-3.5000 Coumadin, Current [id number] 09:42:00 Test Item Value Reference Range Comments Coumadin, Current Dose (test code = Coumadin, 2.5mg qd Current Dose) Coumadin, New Dose (test code = Coumadin, New Dose) x Return [id number] 09:42:00 Test Item Value Reference Range Comments Return Date (test code = Return Date) x [id number] 09:42:00 Test Item Value Reference Range Comments INR (test code = INR) 1.9000 0.0000-3.5000 PT (test code = PT) 22.9000 s 10.0000-14.0000 [id number] 09:30:00 Test Item Value Reference Range Comments WBC (test code = WBC) 6.7000 4.0000-10.0000 Lymphocytes % (test code = Lymphocytes %) 22.0000 % 22.400 0-43.6000 MID% (test code = MID%) 5.7000 % 1.2000-11.2000 Neutrophils % (test code = Neutrophils %) 72.3000 % 48.900 0-69.9000 Lymphocytes (test code = Lymphocytes) 1.4000 1.2000-3.2 000 MID (test code = MID) 0.5000 0.1000-1.1000 Neutrophils (test code = Neutrophils) 4.8000 1.5000-6.7 000 RBC (test code = RBC) 5.6800 3.7000-4.9000 HGB (test code = HGB) 15.0000 g/dL 11.2000-18.0000 HCT (test code = HCT) 47.9000 % 34.0000-44.0000 MCV (test code = MCV) 84.2000 fL 80.0000-94.0000 MCH (test code = MCH) 26.4000 pg 27.0000-34.0000 MCHC (test code = MCHC) 31.3000 g/dL 31.5000-36.0000 RDW (test code = RDW) 15.2000 11.0000-18.0000 PLT (test code = PLT) 274.0000 140.0000-440.0000 MPV (test code = MPV) 8.3000 fL 6.8000-10.6000 [id number] 09:30:00 Test Item Value Reference Range Comments Creatinine (test code = Creatinine) 0.7000 mg/dL 0.5000-1.200 0 Cr Clearance (Est) (test code = Cr 115.1100 85.0000-125.0 000 Clearance (Est)) Glucose (test code = Glucose) 105.0000 mg/dL 70.0000-118.0000 BUN (test code = BUN) 17.0000 mg/dL 7.0000-22.0000 Sodium (test code = Sodium) 139.0000 mmol/L 128.0000-145.0000 Potassium (test code = Potassium) 3.6000 mmol/L 3.6000-5.1000 Chloride (test code = Chloride) 104.0000 mmol/L 96.0000-108.0000 CO2 (test code = CO2) 30.0000 mmol/L 18.0000-33.0000 Calcium (test code = Calcium) 9.7500 mg/dL 8.0000-10.3000 Alkaline Phosphatase (test code = Alkaline 52.0000 42.00 00-141.0000 Phosphatase) ALT (SGPT) (test code = ALT (SGPT)) 16.0000 10.0000-47.0 000 AST (SGOT) (test code = AST (SGOT)) 18.0000 11.0000-37.0 000 Bilirubin, Total (test code = Bilirubin, 0.5000 mg/dL 0.0000- 1.6000 Total) Albumin (test code = Albumin) 4.5000 g/dL 3.5000-5.5000 Protein, Total (test code = Protein, 6.7000 g/dL 6.4000-8.10 00 Total) eGFR -Italian (test code = eGFR 137.0000 60.0000- 200.0000 -Italian) eGFR Dfc-Stdvhkv-Fquwlbmb (test code = 113.0000 60.0000-2 00.0000 eGFR Gcy-Bbowagc-Iyzcskya) Magnesium (test code = Magnesium) 1.9000 mg/dL 1.6000-2.3000 [id number] 09:30:00 Test Item Value Reference Range Comments Sodium (test code = Sodium) 139.0000 mmol/L 128.0000-145.0000 eGFR Dqf-Ffdxzfs-Zuplbwrr (test code = 113.0000 60.0000-2 00.0000 eGFR Nuu-Rfgvjgd-Nzpfxmxg) eGFR -Italian (test code = eGFR 137.0000 60.0000- 200.0000 -Italian) Cr Clearance (Est) (test code = Cr 115.1100 85.0000-125.0 000 Clearance (Est)) Chloride (test code = Chloride) 104.0000 mmol/L 96.0000-108.0000 AST (SGOT) (test code = AST (SGOT)) 18.0000 11.0000-37.0 000 ALT (SGPT) (test code = ALT (SGPT)) 16.0000 10.0000-47.0 000 Potassium (test code = Potassium) 3.6000 mmol/L 3.6000-5.1000 CO2 (test code = CO2) 30.0000 mmol/L 18.0000-33.0000 Alkaline Phosphatase (test code = Alkaline 52.0000 42.00 00-141.0000 Phosphatase) BUN (test code = BUN) 17.0000 mg/dL 7.0000-22.0000 Magnesium (test code = Magnesium) 1.9000 mg/dL 1.6000-2.3000 Glucose (test code = Glucose) 105.0000 mg/dL 70.0000-118.0000 Protein, Total (test code = Protein, 6.7000 g/dL 6.4000-8.10 00 Total) Albumin (test code = Albumin) 4.5000 g/dL 3.5000-5.5000 Bilirubin, Total (test code = Bilirubin, 0.5000 mg/dL 0.0000- 1.6000 Total) Creatinine (test code = Creatinine) 0.7000 mg/dL 0.5000-1.200 0 Calcium (test code = Calcium) 9.7500 mg/dL 8.0000-10.3000 [id number] 09:30:00 Test Item Value Reference Range Comments RDW (test code = RDW) 15.2000 11.0000-18.0000 Lymphocytes % (test code = Lymphocytes %) 22.0000 % 22.400 0-43.6000 MID% (test code = MID%) 5.7000 % 1.2000-11.2000 Neutrophils % (test code = Neutrophils %) 72.3000 % 48.900 0-69.9000 HCT (test code = HCT) 47.9000 % 34.0000-44.0000 Neutrophils (test code = Neutrophils) 4.8000 1.5000-6.7 000 Lymphocytes (test code = Lymphocytes) 1.4000 1.2000-3.2 000 MID (test code = MID) 0.5000 0.1000-1.1000 PLT (test code = PLT) 274.0000 140.0000-440.0000 RBC (test code = RBC) 5.6800 3.7000-4.9000 WBC (test code = WBC) 6.7000 4.0000-10.0000 HGB (test code = HGB) 15.0000 g/dL 11.2000-18.0000 MCHC (test code = MCHC) 31.3000 g/dL 31.5000-36.0000 MCV (test code = MCV) 84.2000 fL 80.0000-94.0000 MCH (test code = MCH) 26.4000 pg 27.0000-34.0000 MPV (test code = MPV) 8.3000 fL 6.8000-10.6000 [id number] 10:08:00 Test Item Value Reference Range Comments Magnesium (test code = Magnesium) 1.7000 mg/dL 1.6000-2.3000 Coumadin, Current Dose (test code = 2.5mg Coumadin, Current Dose) Coumadin, New Dose (test code = Continue same dosage Coumadin, New Dose) [id number] 10:08:00 Test Item Value Reference Range Comments PT (test code = PT) 28.7000 s 10.0000-14.0000 INR (test code = INR) 2.4000 0.0000-3.5000 Return [id number] 10:08:00 Test Item Value Reference Range Comments Return Date (test code = Return Date) 2 weeks [id number] 10:08:00 Test Item Value Reference Range Comments INR (test code = INR) 2.4000 0.0000-3.5000 PT (test code = PT) 28.7000 s 10.0000-14.0000 [id number] 10:07:00 Test Item Value Reference Range Comments WBC (test code = WBC) 4.9000 4.0000-10.0000 Lymphocytes % (test code = Lymphocytes %) 27.8000 % 22.400 0-43.6000 MID% (test code = MID%) 8.3000 % 1.2000-11.2000 Neutrophils % (test code = Neutrophils %) 63.9000 % 48.900 0-69.9000 Lymphocytes (test code = Lymphocytes) 1.3000 1.2000-3.2 000 MID (test code = MID) 0.5000 0.1000-1.1000 Neutrophils (test code = Neutrophils) 3.1000 1.5000-6.7 000 RBC (test code = RBC) 5.2400 3.7000-4.9000 HGB (test code = HGB) 14.6000 g/dL 11.2000-18.0000 HCT (test code = HCT) 43.9000 % 34.0000-44.0000 MCV (test code = MCV) 83.9000 fL 80.0000-94.0000 MCH (test code = MCH) 27.8000 pg 27.0000-34.0000 MCHC (test code = MCHC) 33.2000 g/dL 31.5000-36.0000 RDW (test code = RDW) 14.6000 11.0000-18.0000 PLT (test code = PLT) 204.0000 140.0000-440.0000 MPV (test code = MPV) 9.1000 fL 6.8000-10.6000 [id number] 10:07:00 Test Item Value Reference Range Comments Creatinine (test code = Creatinine) 0.7000 mg/dL 0.5000-1.200 0 Cr Clearance (Est) (test code = Cr 113.0000 85.0000-125.0 000 Clearance (Est)) Glucose (test code = Glucose) 160.0000 mg/dL 70.0000-118.0000 BUN (test code = BUN) 20.0000 mg/dL 7.0000-22.0000 Sodium (test code = Sodium) 139.0000 mmol/L 128.0000-145.0000 Potassium (test code = Potassium) 3.5000 mmol/L 3.6000-5.1000 Chloride (test code = Chloride) 103.0000 mmol/L 96.0000-108.0000 CO2 (test code = CO2) 32.0000 mmol/L 18.0000-33.0000 Calcium (test code = Calcium) 9.6900 mg/dL 8.0000-10.3000 Alkaline Phosphatase (test code = Alkaline 48.0000 42.00 00-141.0000 Phosphatase) ALT (SGPT) (test code = ALT (SGPT)) 23.0000 10.0000-47.0 000 AST (SGOT) (test code = AST (SGOT)) 25.0000 11.0000-37.0 000 Bilirubin, Total (test code = Bilirubin, 0.4000 mg/dL 0.0000- 1.6000 Total) Albumin (test code = Albumin) 4.2000 g/dL 3.5000-5.5000 Protein, Total (test code = Protein, 6.2000 g/dL 6.4000-8.10 00 Total) eGFR -Italian (test code = eGFR 136.0000 60.0000- 200.0000 -Italian) eGFR Xgr-Kacuqdo-Scsfbygk (test code = 112.0000 60.0000-2 00.0000 eGFR Qbu-Wnfavts-Nspubjev) [id number] 10:07:00 Test Item Value Reference Range Comments Sodium (test code = Sodium) 139.0000 mmol/L 128.0000-145.0000 eGFR Ugf-Blxbjgi-Xtogufdg (test code = 112.0000 60.0000-2 00.0000 eGFR Lcn-Cklsonp-Khljvdkw) Cr Clearance (Est) (test code = Cr 113.0000 85.0000-125.0 000 Clearance (Est)) eGFR -Italian (test code = eGFR 136.0000 60.0000- 200.0000 -Italian) CO2 (test code = CO2) 32.0000 mmol/L 18.0000-33.0000 Potassium (test code = Potassium) 3.5000 mmol/L 3.6000-5.1000 AST (SGOT) (test code = AST (SGOT)) 25.0000 11.0000-37.0 000 ALT (SGPT) (test code = ALT (SGPT)) 23.0000 10.0000-47.0 000 Chloride (test code = Chloride) 103.0000 mmol/L 96.0000-108.0000 Alkaline Phosphatase (test code = Alkaline 48.0000 42.00 00-141.0000 Phosphatase) Calcium (test code = Calcium) 9.6900 mg/dL 8.0000-10.3000 Creatinine (test code = Creatinine) 0.7000 mg/dL 0.5000-1.200 0 Bilirubin, Total (test code = Bilirubin, 0.4000 mg/dL 0.0000- 1.6000 Total) Albumin (test code = Albumin) 4.2000 g/dL 3.5000-5.5000 Protein, Total (test code = Protein, 6.2000 g/dL 6.4000-8.10 00 Total) BUN (test code = BUN) 20.0000 mg/dL 7.0000-22.0000 Glucose (test code = Glucose) 160.0000 mg/dL 70.0000-118.0000 [id number] 10:07:00 Test Item Value Reference Range Comments RDW (test code = RDW) 14.6000 11.0000-18.0000 HCT (test code = HCT) 43.9000 % 34.0000-44.0000 Lymphocytes % (test code = Lymphocytes %) 27.8000 % 22.400 0-43.6000 Neutrophils % (test code = Neutrophils %) 63.9000 % 48.900 0-69.9000 MID% (test code = MID%) 8.3000 % 1.2000-11.2000 MPV (test code = MPV) 9.1000 fL 6.8000-10.6000 MCH (test code = MCH) 27.8000 pg 27.0000-34.0000 MCHC (test code = MCHC) 33.2000 g/dL 31.5000-36.0000 MCV (test code = MCV) 83.9000 fL 80.0000-94.0000 HGB (test code = HGB) 14.6000 g/dL 11.2000-18.0000 RBC (test code = RBC) 5.2400 3.7000-4.9000 PLT (test code = PLT) 204.0000 140.0000-440.0000 WBC (test code = WBC) 4.9000 4.0000-10.0000 MID (test code = MID) 0.5000 0.1000-1.1000 Lymphocytes (test code = Lymphocytes) 1.3000 1.2000-3.2 000 Neutrophils (test code = Neutrophils) 3.1000 1.5000-6.7 000 [id number] 10:11:00 Test Item Value Reference Range Comments PT (test code = PT) 25.2000 s 10.0000-14.0000 INR (test code = INR) 2.1000 0.0000-3.5000 Coumadin, Current [id number] 10:11:00 Test Item Value Reference Range Comments Coumadin, Current Dose (test code = 2.5qd Coumadin, Current Dose) Coumadin, New Dose (test code = Continue same dosage Coumadin, New Dose) Return [id number] 10:11:00 Test Item Value Reference Range Comments Return Date (test code = Return Date) 1 week [id number] 10:11:00 Test Item Value Reference Range Comments INR (test code = INR) 2.1000 0.0000-3.5000 PT (test code = PT) 25.2000 s 10.0000-14.0000 [id number] 10:04:00 Test Item Value Reference Range Comments PT (test code = PT) 22.3000 s 10.0000-14.0000 INR (test code = INR) 1.9000 0.0000-3.5000 Coumadin, Current [id number] 10:04:00 Test Item Value Reference Range Comments Coumadin, Current Dose (test 2.5mg qd. hasnt taken today code = Coumadin, Current Dose) yet Coumadin, New Dose (test code Continue same dosage = Coumadin, New Dose) Return [id number] 10:04:00 Test Item Value Reference Range Comments Return Date (test code = Return Date) Sunday Coumadin, New [id number] 10:04:00 Test Item Value Reference Range Comments Coumadin, New Dose (test code Continue same dosage = Coumadin, New Dose) Coumadin, Current Dose (test 2.5mg qd. hasnt taken today code = Coumadin, Current Dose) yet T4, [id number] 12:15:00 Test Item Value Reference Range Comments T4, Free (test code = T4, Free) 1.6700 ng/dL 0.8200-1.7700 TSH (test code = TSH) 0.5700 0.4500-4.5000 T3, Free (test code = T3, Free) 3.6000 pg/mL 2.0000-4.4000 [id number] 10:38:00 Test Item Value Reference Range Comments PT (test code = PT) 27.4000 s 10.0000-14.0000 INR (test code = INR) 2.3000 0.0000-3.5000 Coumadin, Current [id number] 10:38:00 Test Item Value Reference Range Comments Coumadin, Current Dose (test code = Coumadin, 2.5mg QD Current Dose) Coumadin, New Dose (test code = Coumadin, New Dose) x Return [id number] 10:38:00 Test Item Value Reference Range Comments Return Date (test code = Return Date) x Coumadin, New [id number] 10:38:00 Test Item Value Reference Range Comments Coumadin, New Dose (test code = Coumadin, New Dose) x Coumadin, Current Dose (test code = Coumadin, 2.5mg QD Current Dose) [id number] 10:38:00 Test Item Value Reference Range Comments INR (test code = INR) 2.3000 0.0000-3.5000 PT (test code = PT) 27.4000 s 10.0000-14.0000 [id number] 10:33:00 Test Item Value Reference Range Comments WBC (test code = WBC) 5.2000 4.0000-10.0000 Lymphocytes % (test code = Lymphocytes %) 28.0000 % 22.400 0-43.6000 MID% (test code = MID%) 7.0000 % 1.2000-11.2000 Neutrophils % (test code = Neutrophils %) 65.0000 % 48.900 0-69.9000 Lymphocytes (test code = Lymphocytes) 1.4000 1.2000-3.2 000 MID (test code = MID) 0.5000 0.1000-1.1000 Neutrophils (test code = Neutrophils) 3.3000 1.5000-6.7 000 RBC (test code = RBC) 5.3600 3.7000-4.9000 HGB (test code = HGB) 14.6000 g/dL 11.2000-18.0000 HCT (test code = HCT) 46.6000 % 34.0000-44.0000 MCV (test code = MCV) 87.0000 fL 80.0000-94.0000 MCH (test code = MCH) 27.2000 pg 27.0000-34.0000 MCHC (test code = MCHC) 31.3000 g/dL 31.5000-36.0000 RDW (test code = RDW) 14.7000 11.0000-18.0000 PLT (test code = PLT) 204.0000 140.0000-440.0000 MPV (test code = MPV) 8.6000 fL 6.8000-10.6000 [id number] 10:33:00 Test Item Value Reference Range Comments Creatinine (test code = Creatinine) 0.7000 mg/dL 0.5000-1.200 0 Cr Clearance (Est) (test code = Cr 113.0000 85.0000-125.0 000 Clearance (Est)) Glucose (test code = Glucose) 112.0000 mg/dL 70.0000-118.0000 BUN (test code = BUN) 23.0000 mg/dL 7.0000-22.0000 Sodium (test code = Sodium) 139.0000 mmol/L 128.0000-145.0000 Potassium (test code = Potassium) 3.5000 mmol/L 3.6000-5.1000 Chloride (test code = Chloride) 104.0000 mmol/L 96.0000-108.0000 CO2 (test code = CO2) 35.0000 mmol/L 18.0000-33.0000 Calcium (test code = Calcium) 9.8000 mg/dL 8.0000-10.3000 Alkaline Phosphatase (test code = Alkaline 45.0000 42.00 00-141.0000 Phosphatase) ALT (SGPT) (test code = ALT (SGPT)) 28.0000 10.0000-47.0 000 AST (SGOT) (test code = AST (SGOT)) 29.0000 11.0000-37.0 000 Bilirubin, Total (test code = Bilirubin, 0.5000 mg/dL 0.0000- 1.6000 Total) Albumin (test code = Albumin) 4.4000 g/dL 3.5000-5.5000 Protein, Total (test code = Protein, 6.5000 g/dL 6.4000-8.10 00 Total) eGFR -Italian (test code = eGFR 136.0000 60.0000- 200.0000 -Italian) eGFR Vjp-Thuxvnw-Cwikkwsn (test code = 112.0000 60.0000-2 00.0000 eGFR Ifr-Dfelqhk-Rfzliqcr) Magnesium (test code = Magnesium) 1.8000 mg/dL 1.6000-2.3000 [id number] 10:33:00 Test Item Value Reference Range Comments MCH (test code = MCH) 27.2000 pg 27.0000-34.0000 MPV (test code = MPV) 8.6000 fL 6.8000-10.6000 MCV (test code = MCV) 87.0000 fL 80.0000-94.0000 MCHC (test code = MCHC) 31.3000 g/dL 31.5000-36.0000 HGB (test code = HGB) 14.6000 g/dL 11.2000-18.0000 WBC (test code = WBC) 5.2000 4.0000-10.0000 RBC (test code = RBC) 5.3600 3.7000-4.9000 PLT (test code = PLT) 204.0000 140.0000-440.0000 Neutrophils (test code = Neutrophils) 3.3000 1.5000-6.7 000 MID (test code = MID) 0.5000 0.1000-1.1000 Lymphocytes (test code = Lymphocytes) 1.4000 1.2000-3.2 000 HCT (test code = HCT) 46.6000 % 34.0000-44.0000 RDW (test code = RDW) 14.7000 11.0000-18.0000 MID% (test code = MID%) 7.0000 % 1.2000-11.2000 Lymphocytes % (test code = Lymphocytes %) 28.0000 % 22.400 0-43.6000 Neutrophils % (test code = Neutrophils %) 65.0000 % 48.900 0-69.9000 Protein, [id number] 10:33:00 Test Item Value Reference Range Comments Protein, Total (test code = Protein, 6.5000 g/dL 6.4000-8.10 00 Total) Albumin (test code = Albumin) 4.4000 g/dL 3.5000-5.5000 Bilirubin, Total (test code = Bilirubin, 0.5000 mg/dL 0.0000- 1.6000 Total) Creatinine (test code = Creatinine) 0.7000 mg/dL 0.5000-1.200 0 Calcium (test code = Calcium) 9.8000 mg/dL 8.0000-10.3000 Glucose (test code = Glucose) 112.0000 mg/dL 70.0000-118.0000 BUN (test code = BUN) 23.0000 mg/dL 7.0000-22.0000 Magnesium (test code = Magnesium) 1.8000 mg/dL 1.6000-2.3000 Sodium (test code = Sodium) 139.0000 mmol/L 128.0000-145.0000 eGFR Vht-Cigsjyr-Vctyazrx (test code = 112.0000 60.0000-2 00.0000 eGFR Cct-Fseigyu-Adxmmsry) eGFR -Italian (test code = eGFR 136.0000 60.0000- 200.0000 -Italian) Cr Clearance (Est) (test code = Cr 113.0000 85.0000-125.0 000 Clearance (Est)) AST (SGOT) (test code = AST (SGOT)) 29.0000 11.0000-37.0 000 ALT (SGPT) (test code = ALT (SGPT)) 28.0000 10.0000-47.0 000 Potassium (test code = Potassium) 3.5000 mmol/L 3.6000-5.1000 CO2 (test code = CO2) 35.0000 mmol/L 18.0000-33.0000 Chloride (test code = Chloride) 104.0000 mmol/L 96.0000-108.0000 Alkaline Phosphatase (test code = Alkaline 45.0000 42.00 00-141.0000 Phosphatase) T4, [id number] 14:12:00 Test Item Value Reference Range Comments T4, Free (test code = T4, Free) 1.5100 ng/dL 0.8200-1.7700 TSH (test code = TSH) 0.5310 0.4500-4.5000 T3, Free (test code = T3, Free) 3.5000 pg/mL 2.0000-4.4000 [id number] 10:31:00 Test Item Value Reference Range Comments PT (test code = PT) 38.2000 s 10.0000-14.0000 INR (test code = INR) 3.2000 0.0000-3.5000 Coumadin, Current [id number] 10:31:00 Test Item Value Reference Range Comments Coumadin, Current Dose (test code = Coumadin, Current 2.5qd Dose) Coumadin, New Dose (test code = Coumadin, New Dose) x Return [id number] 10:31:00 Test Item Value Reference Range Comments Return Date (test code = Return Date) x [id number] 10:31:00 Test Item Value Reference Range Comments INR (test code = INR) 3.2000 0.0000-3.5000 PT (test code = PT) 38.2000 s 10.0000-14.0000 [id number] 10:26:00 Test Item Value Reference Range Comments WBC (test code = WBC) 5.8000 4.0000-10.0000 Lymphocytes % (test code = Lymphocytes %) 20.6000 % 22.400 0-43.6000 MID% (test code = MID%) 5.7000 % 1.1999-11.1999 Neutrophils % (test code = Neutrophils %) 73.7000 % 48.900 0-69.9000 Lymphocytes (test code = Lymphocytes) 1.2000 1.2000-3.2 000 MID (test code = MID) 0.4000 0.1000-1.1000 Neutrophils (test code = Neutrophils) 4.1999 1.5000-6.7 000 RBC (test code = RBC) 5.1500 3.7000-4.9000 HGB (test code = HGB) 14.2000 g/dL 11.1999-18.0000 HCT (test code = HCT) 44.4000 % 34.0000-44.0000 MCV (test code = MCV) 86.2000 fL 80.0000-94.0000 MCH (test code = MCH) 27.7000 pg 27.0000-34.0000 MCHC (test code = MCHC) 32.1000 g/dL 31.5000-36.0000 RDW (test code = RDW) 14.2000 11.0000-18.0000 PLT (test code = PLT) 252.0000 140.0000-440.0000 MPV (test code = MPV) 8.4000 fL 6.8000-10.6000 [id number] 10:26:00 Test Item Value Reference Range Comments Creatinine (test code = Creatinine) 0.7000 mg/dL 0.5000-1.200 0 Cr Clearance (Est) (test code = Cr 110.3800 85.0000-125.0 000 Clearance (Est)) Glucose (test code = Glucose) 124.0000 mg/dL 70.0000-118.0000 BUN (test code = BUN) 23.0000 mg/dL 7.0000-22.0000 Sodium (test code = Sodium) 139.0000 mmol/L 128.0000-145.0000 Potassium (test code = Potassium) 3.7000 mmol/L 3.6000-5.1000 Chloride (test code = Chloride) 105.0000 mmol/L 96.0000-108.0000 CO2 (test code = CO2) 31.0000 mmol/L 18.0000-33.0000 Calcium (test code = Calcium) 9.4600 mg/dL 8.0000-10.3000 Alkaline Phosphatase (test code = Alkaline 59.0000 42.00 00-141.0000 Phosphatase) ALT (SGPT) (test code = ALT (SGPT)) 10.0000 10.0000-47.0 000 AST (SGOT) (test code = AST (SGOT)) 17.0000 11.0000-37.0 000 Bilirubin, Total (test code = Bilirubin, 0.4000 mg/dL 0.0000- 1.6000 Total) Albumin (test code = Albumin) 4.3000 g/dL 3.5000-5.5000 Protein, Total (test code = Protein, 6.4000 g/dL 6.4000-8.10 00 Total) eGFR -Italian (test code = eGFR 137.0000 60.0000- 200.0000 -Italian) eGFR Lhv-Ayhrkdl-Sqsnhhvu (test code = 113.0000 60.0000-2 00.0000 eGFR Nhu-Ehzquhb-Riefcfzq) Magnesium (test code = Magnesium) 1.9000 mg/dL 1.6000-2.3000 [id number] 10:26:00 Test Item Value Reference Range Comments HGB (test code = HGB) 14.2000 g/dL 11.2000-18.0000 MCV (test code = MCV) 86.2000 fL 80.0000-94.0000 MCHC (test code = MCHC) 32.1000 g/dL 31.5000-36.0000 MCH (test code = MCH) 27.7000 pg 27.0000-34.0000 MPV (test code = MPV) 8.4000 fL 6.8000-10.6000 WBC (test code = WBC) 5.8000 4.0000-10.0000 RBC (test code = RBC) 5.1500 3.7000-4.9000 PLT (test code = PLT) 252.0000 140.0000-440.0000 Lymphocytes (test code = Lymphocytes) 1.1999 1.2000-3.2 000 Neutrophils (test code = Neutrophils) 4.2000 1.5000-6.7 000 MID (test code = MID) 0.4000 0.1000-1.1000 HCT (test code = HCT) 44.4000 % 34.0000-44.0000 RDW (test code = RDW) 14.1999 11.0000-18.0000 Neutrophils % (test code = Neutrophils %) 73.7000 % 48.900 0-69.9000 Lymphocytes % (test code = Lymphocytes %) 20.6000 % 22.400 0-43.6000 MID% (test code = MID%) 5.7000 % .1999-11 [id number] 11:53:00 Test Item Value Reference Range Comments TSH (test code = TSH) 1.0000 0.4500-4.5000 T4, Free (test code = T4, Free) 1.5500 ng/dL 0.8200-1.7700 Potassium (test code = Potassium) 3.9000 mmol/L 3.5000-5.2000 Sodium (test code = Sodium) 144.0000 mmol/L 134.0000-144.0000 BUN (test code = BUN) 24.0000 mg/dL 8.0000-27.0000 BUN/Creat Ratio (test code = BUN/Creat 33.0000 10.0000-2 4.0000 Ratio) Calcium (test code = Calcium) 9.4000 mg/dL 8.6000-10.2000 CO2 (test code = CO2) 23.0000 mmol/L 20.0000-29.0000 Chloride (test code = Chloride) 104.0000 mmol/L 96.0000-106.0000 Creatinine (test code = Creatinine) 0.7200 mg/dL 0.7600-1.270 0 Glucose (test code = Glucose) 103.0000 mg/dL 65.0000-99.0000 Cr Clearance (Est) (test code = Cr 108.7200 85.0000-125.0 000 Clearance (Est)) eGFR -Italian (test code = eGFR 112.0000 -Italian) eGFR Hou-Aizgyqi-Jeferxxu (test code = 97.0000 eGFR Gsg-Mppiwmk-Yycukzfn) Cholesterol, Total (test code = 120.0000 mg/dL 100.0000-199.000 0 Cholesterol, Total) Triglycerides (test code = Triglycerides) 63.0000 mg/dL 0.0000 -149.0000 HDL Cholesterol (test code = HDL 47.0000 mg/dL Cholesterol) VLDL Cholesterol (test code = VLDL 13.0000 mg/dL 5.0000-40.000 0 Cholesterol) LDL Cholesterol (test code = LDL 60.0000 mg/dL 0.0000-99.0000 Cholesterol) eGFR Ibrfeyu-[id number] 11:53:00 Test Item Value Reference Range Comments eGFR -Italian (test code = eGFR 112.0000 -Italian) BUN/Creat Ratio (test code = BUN/Creat 33.0000 10.0000-2 4.0000 Ratio) eGFR Wqc-Qtopuzt-Tvyovpkr (test code = 97.0000 eGFR Vbp-Ssijxed-Tqmacare) Potassium (test code = Potassium) 3.9000 mmol/L 3.5000-5.2000 CO2 (test code = CO2) 23.0000 mmol/L 20.0000-29.0000 Chloride (test code = Chloride) 104.0000 mmol/L 96.0000-106.0000 Sodium (test code = Sodium) 144.0000 mmol/L 134.0000-144.0000 Cr Clearance (Est) (test code = Cr 108.7200 85.0000-125.0 000 Clearance (Est)) Glucose (test code = Glucose) 103.0000 mg/dL 65.0000-99.0000 HDL Cholesterol (test code = HDL 47.0000 mg/dL Cholesterol) VLDL Cholesterol (test code = VLDL 13.0000 mg/dL 5.0000-40.000 0 Cholesterol) Triglycerides (test code = Triglycerides) 63.0000 mg/dL 0.0000 -149.0000 BUN (test code = BUN) 24.0000 mg/dL 8.0000-27.0000 LDL Cholesterol (test code = LDL 60.0000 mg/dL 0.0000-99.0000 Cholesterol) TSH (test code = TSH) 1.0000 0.4500-4.5000 T4, Free (test code = T4, Free) 1.5500 ng/dL 0.8200-1.7700 Calcium (test code = Calcium) 9.4000 mg/dL 8.6000-10.2000 Cholesterol, Total (test code = 120.0000 mg/dL 100.0000-199.000 0 Cholesterol, Total) Creatinine (test code = Creatinine) 0.7200 mg/dL 0.7600-1.270 0 [id number] 10:10:00 Test Item Value Reference Range Comments WBC (test code = WBC) 7.4000 4.0000-10.0000 Lymphocytes % (test code = Lymphocytes %) 19.7000 % 22.400 0-43.6000 MID% (test code = MID%) 5.8000 % 1.2000-11.2000 Neutrophils % (test code = Neutrophils %) 74.5000 % 48.900 0-69.9000 Lymphocytes (test code = Lymphocytes) 1.4000 1.2000-3.2 000 MID (test code = MID) 0.5000 0.1000-1.1000 Neutrophils (test code = Neutrophils) 5.5000 1.5000-6.7 000 RBC (test code = RBC) 5.2500 3.7000-4.9000 HGB (test code = HGB) 14.6000 g/dL 11.2000-18.0000 HCT (test code = HCT) 45.6000 % 34.0000-44.0000 MCV (test code = MCV) 86.9000 fL 80.0000-94.0000 MCH (test code = MCH) 27.9000 pg 27.0000-34.0000 MCHC (test code = MCHC) 32.1000 g/dL 31.5000-36.0000 RDW (test code = RDW) 14.4000 11.0000-18.0000 PLT (test code = PLT) 261.0000 140.0000-440.0000 MPV (test code = MPV) 8.4000 fL 6.8000-10.6000 [id number] 10:10:00 Test Item Value Reference Range Comments Creatinine (test code = Creatinine) 0.7000 mg/dL 0.5000-1.200 0 Cr Clearance (Est) (test code = Cr 111.8200 85.0000-125.0 000 Clearance (Est)) Glucose (test code = Glucose) 104.0000 mg/dL 70.0000-118.0000 BUN (test code = BUN) 24.0000 mg/dL 7.0000-22.0000 Sodium (test code = Sodium) 138.0000 mmol/L 128.0000-145.0000 Potassium (test code = Potassium) 3.6000 mmol/L 3.6000-5.1000 Chloride (test code = Chloride) 103.0000 mmol/L 96.0000-108.0000 CO2 (test code = CO2) 33.0000 mmol/L 18.0000-33.0000 Calcium (test code = Calcium) 9.3700 mg/dL 8.0000-10.3000 Alkaline Phosphatase (test code = Alkaline 46.0000 42.00 00-141.0000 Phosphatase) ALT (SGPT) (test code = ALT (SGPT)) 21.0000 10.0000-47.0 000 AST (SGOT) (test code = AST (SGOT)) 21.0000 11.0000-37.0 000 Bilirubin, Total (test code = Bilirubin, 0.3000 mg/dL 0.0000- 1.6000 Total) Albumin (test code = Albumin) 4.4000 g/dL 3.5000-5.5000 Protein, Total (test code = Protein, 6.2000 g/dL 6.4000-8.10 00 Total) eGFR -Italian (test code = eGFR 136.0000 60.0000- 200.0000 -Italian) eGFR Gbu-Fckcril-Erfhbgdc (test code = 112.0000 60.0000-2 00.0000 eGFR Xod-Lvufhco-Zisazfwg) Magnesium (test code = Magnesium) 1.7000 mg/dL 1.6000-2.3000 [id number] 10:10:00 Test Item Value Reference Range Comments MCH (test code = MCH) 27.9000 pg 27.0000-34.0000 MPV (test code = MPV) 8.4000 fL 6.8000-10.6000 MCV (test code = MCV) 86.9000 fL 80.0000-94.0000 MCHC (test code = MCHC) 32.1000 g/dL 31.5000-36.0000 HGB (test code = HGB) 14.6000 g/dL 11.2000-18.0000 WBC (test code = WBC) 7.4000 4.0000-10.0000 RBC (test code = RBC) 5.2500 3.7000-4.9000 PLT (test code = PLT) 261.0000 140.0000-440.0000 Neutrophils (test code = Neutrophils) 5.5000 1.5000-6.7 000 MID (test code = MID) 0.5000 0.1000-1.1000 Lymphocytes (test code = Lymphocytes) 1.4000 1.2000-3.2 000 RDW (test code = RDW) 14.4000 11.0000-18.0000 HCT (test code = HCT) 45.6000 % 34.0000-44.0000 MID% (test code = MID%) 5.8000 % 1.2000-11.2000 Lymphocytes % (test code = Lymphocytes %) 19.7000 % 22.400 0-43.6000 Neutrophils % (test code = Neutrophils %) 74.5000 % 48.900 0-69.9000 Bilirubin, [id number] 10:10:00 Test Item Value Reference Range Comments Bilirubin, Total (test code = Bilirubin, 0.3000 mg/dL 0.0000- 1.6000 Total) Creatinine (test code = Creatinine) 0.7000 mg/dL 0.5000-1.200 0 Calcium (test code = Calcium) 9.3700 mg/dL 8.0000-10.3000 Albumin (test code = Albumin) 4.4000 g/dL 3.5000-5.5000 Protein, Total (test code = Protein, 6.2000 g/dL 6.4000-8.10 00 Total) Magnesium (test code = Magnesium) 1.7000 mg/dL 1.6000-2.3000 BUN (test code = BUN) 24.0000 mg/dL 7.0000-22.0000 Glucose (test code = Glucose) 104.0000 mg/dL 70.0000-118.0000 Cr Clearance (Est) (test code = Cr 111.8200 85.0000-125.0 000 Clearance (Est)) eGFR -Italian (test code = eGFR 136.0000 60.0000- 200.0000 -Italian) eGFR Coh-Dlualcn-Jqekerfj (test code = 112.0000 60.0000-2 00.0000 eGFR Mdx-Ayryilt-Winyjjyd) Sodium (test code = Sodium) 138.0000 mmol/L 128.0000-145.0000 Chloride (test code = Chloride) 103.0000 mmol/L 96.0000-108.0000 CO2 (test code = CO2) 33.0000 mmol/L 18.0000-33.0000 Potassium (test code = Potassium) 3.6000 mmol/L 3.6000-5.1000 AST (SGOT) (test code = AST (SGOT)) 21.0000 11.0000-37.0 000 ALT (SGPT) (test code = ALT (SGPT)) 21.0000 10.0000-47.0 000 Alkaline Phosphatase (test code = Alkaline 46.0000 42.00 00-141.0000 Phosphatase) T4, [id number] 13:49:00 Test Item Value Reference Range Comments T4, Free (test code = T4, Free) 1.5600 ng/dL 0.8200-1.7700 TSH (test code = TSH) 0.4810 0.4500-4.5000 T3, Free (test code = T3, Free) 3.4000 pg/mL 2.0000-4.4000 [id number] 13:49:00 Test Item Value Reference Range Comments PSA (test code = PSA) 0.3000 ng/mL 0.0000-4.0000 [id number] 10:11:00 Test Item Value Reference Range Comments PT (test code = PT) 22.6000 s 10.0000-14.0000 INR (test code = INR) 1.9000 0.0000-3.5000 Coumadin, Current [id number] 10:11:00 Test Item Value Reference Range Comments Coumadin, Current Dose (test code = Coumadin, 2.5mg qd Current Dose) Coumadin, New Dose (test code = Coumadin, New Dose) x Return [id number] 10:11:00 Test Item Value Reference Range Comments Return Date (test code = Return Date) x pt sees doctor today Coumadin, New [id number] 10:11:00 Test Item Value Reference Range Comments Coumadin, New Dose (test code = Coumadin, New Dose) x Coumadin, Current Dose (test code = Coumadin, 2.5mg qd Current Dose) [id number] 10:10:00 Test Item Value Reference Range Comments WBC (test code = WBC) 6.7000 4.0000-10.0000 Lymphocytes % (test code = Lymphocytes %) 21.7000 % 22.400 0-43.6000 MID% (test code = MID%) 5.9000 % 1.2000-11.2000 Neutrophils % (test code = Neutrophils %) 72.4000 % 48.900 0-69.9000 Lymphocytes (test code = Lymphocytes) 1.4000 1.2000-3.2 000 MID (test code = MID) 0.5000 0.1000-1.1000 Neutrophils (test code = Neutrophils) 4.8000 1.5000-6.7 000 RBC (test code = RBC) 5.3800 3.7000-4.9000 HGB (test code = HGB) 14.8000 g/dL 11.2000-18.0000 HCT (test code = HCT) 47.4000 % 34.0000-44.0000 MCV (test code = MCV) 87.9000 fL 80.0000-94.0000 MCH (test code = MCH) 27.4000 pg 27.0000-34.0000 MCHC (test code = MCHC) 31.2000 g/dL 31.5000-36.0000 RDW (test code = RDW) 14.5000 11.0000-18.0000 PLT (test code = PLT) 234.0000 140.0000-440.0000 MPV (test code = MPV) 8.4000 fL 6.8000-10.6000 [id number] 10:10:00 Test Item Value Reference Range Comments Creatinine (test code = Creatinine) 0.7000 mg/dL 0.5000-1.200 0 Cr Clearance (Est) (test code = Cr 107.0900 85.0000-125.0 000 Clearance (Est)) Glucose (test code = Glucose) 126.0000 mg/dL 70.0000-118.0000 BUN (test code = BUN) 22.0000 mg/dL 7.0000-22.0000 Sodium (test code = Sodium) 141.0000 mmol/L 128.0000-145.0000 Potassium (test code = Potassium) 3.6000 mmol/L 3.6000-5.1000 Chloride (test code = Chloride) 107.0000 mmol/L 96.0000-108.0000 CO2 (test code = CO2) 30.0000 mmol/L 18.0000-33.0000 Calcium (test code = Calcium) 9.7100 mg/dL 8.0000-10.3000 Alkaline Phosphatase (test code = Alkaline 41.0000 42.00 00-141.0000 Phosphatase) ALT (SGPT) (test code = ALT (SGPT)) 15.0000 10.0000-47.0 000 AST (SGOT) (test code = AST (SGOT)) 18.0000 11.0000-37.0 000 Bilirubin, Total (test code = Bilirubin, 0.3000 mg/dL 0.0000- 1.6000 Total) Albumin (test code = Albumin) 4.3000 g/dL 3.5000-5.5000 Protein, Total (test code = Protein, 6.4000 g/dL 6.4000-8.10 00 Total) eGFR -Italian (test code = eGFR 136.0000 60.0000- 200.0000 -Italian) eGFR Piu-Alredah-Hwbktkao (test code = 112.0000 60.0000-2 00.0000 eGFR Krw-Ickrrlk-Tbvxxozt) Magnesium (test code = Magnesium) 1.7000 mg/dL 1.6000-2.3000 [id number] 10:10:00 Test Item Value Reference Range Comments MCH (test code = MCH) 27.4000 pg 27.0000-34.0000 MPV (test code = MPV) 8.4000 fL 6.8000-10.6000 MCHC (test code = MCHC) 31.2000 g/dL 31.5000-36.0000 MCV (test code = MCV) 87.9000 fL 80.0000-94.0000 HGB (test code = HGB) 14.8000 g/dL 11.2000-18.0000 WBC (test code = WBC) 6.7000 4.0000-10.0000 RBC (test code = RBC) 5.3800 3.7000-4.9000 PLT (test code = PLT) 234.0000 140.0000-440.0000 MID (test code = MID) 0.5000 0.1000-1.1000 Neutrophils (test code = Neutrophils) 4.8000 1.5000-6.7 000 Lymphocytes (test code = Lymphocytes) 1.4000 1.2000-3.2 000 RDW (test code = RDW) 14.5000 11.0000-18.0000 HCT (test code = HCT) 47.4000 % 34.0000-44.0000 Neutrophils % (test code = Neutrophils %) 72.4000 % 48.900 0-69.9000 Lymphocytes % (test code = Lymphocytes %) 21.7000 % 22.400 0-43.6000 MID% (test code = MID%) 5.9000 % 1.2000-11.1999 Protein, [id number] 10:10:00 Test Item Value Reference Range Comments Protein, Total (test code = Protein, 6.4000 g/dL 6.4000-8.10 00 Total) Albumin (test code = Albumin) 4.3000 g/dL 3.5000-5.5000 Calcium (test code = Calcium) 9.7100 mg/dL 8.0000-10.3000 Creatinine (test code = Creatinine) 0.7000 mg/dL 0.5000-1.200 0 Bilirubin, Total (test code = Bilirubin, 0.3000 mg/dL 0.0000- 1.6000 Total) Glucose (test code = Glucose) 126.0000 mg/dL 70.0000-118.0000 BUN (test code = BUN) 22.0000 mg/dL 7.0000-22.0000 Magnesium (test code = Magnesium) 1.7000 mg/dL 1.6000-2.3000 Alkaline Phosphatase (test code = Alkaline 41.0000 42.00 00-141.0000 Phosphatase) ALT (SGPT) (test code = ALT (SGPT)) 15.0000 10.0000-47.0 000 AST (SGOT) (test code = AST (SGOT)) 18.0000 11.0000-37.0 000 Potassium (test code = Potassium) 3.6000 mmol/L 3.6000-5.1000 CO2 (test code = CO2) 30.0000 mmol/L 18.0000-33.0000 Chloride (test code = Chloride) 107.0000 mmol/L 96.0000-108.0000 eGFR Ayc-Btcjscp-Hesyyopt (test code = 112.0000 60.0000-2 00.0000 eGFR Tcf-Htjxaav-Rgsrtzrn) Sodium (test code = Sodium) 141.0000 mmol/L 128.0000-145.0000 eGFR -Italian (test code = eGFR 136.0000 60.0000- 200.0000 -Italian) Cr Clearance (Est) (test code = Cr 107.0900 85.0000-125.0 000 Clearance (Est)) T4, [id number] 14:27:00 Test Item Value Reference Range Comments T4, Free (test code = T4, Free) 1.6900 ng/dL 0.8200-1.7700 TSH (test code = TSH) 0.5920 0.4500-4.5000 T3, Free (test code = T3, Free) 3.5000 pg/mL 2.0000-4.4000 [id number] 11:25:00 Test Item Value Reference Range Comments WBC (test code = WBC) 5.9000 4.0000-10.0000 Lymphocytes % (test code = Lymphocytes %) 26.1000 % 22.400 0-43.6000 MID% (test code = MID%) 6.1000 % 1.2000-11.2000 Neutrophils % (test code = Neutrophils %) 67.8000 % 48.900 0-69.9000 Lymphocytes (test code = Lymphocytes) 1.5000 1.2000-3.2 000 MID (test code = MID) 0.4000 0.1000-1.1000 Neutrophils (test code = Neutrophils) 4.0000 1.5000-6.7 000 RBC (test code = RBC) 5.5500 3.7000-4.9000 HGB (test code = HGB) 15.3000 g/dL 11.2000-18.0000 HCT (test code = HCT) 48.9000 % 34.0000-44.0000 MCV (test code = MCV) 88.2000 fL 80.0000-94.0000 MCH (test code = MCH) 27.5000 pg 27.0000-34.0000 MCHC (test code = MCHC) 31.2000 g/dL 31.5000-36.0000 RDW (test code = RDW) 14.9000 11.0000-18.0000 PLT (test code = PLT) 230.0000 140.0000-440.0000 MPV (test code = MPV) 8.4000 fL 6.8000-10.6000 [id number] 11:25:00 Test Item Value Reference Range Comments HGB (test code = HGB) 15.3000 g/dL 11.2000-18.0000 MCHC (test code = MCHC) 31.2000 g/dL 31.5000-36.0000 MCV (test code = MCV) 88.2000 fL 80.0000-94.0000 MPV (test code = MPV) 8.4000 fL 6.8000-10.6000 MCH (test code = MCH) 27.5000 pg 27.0000-34.0000 MID (test code = MID) 0.4000 0.1000-1.1000 Neutrophils (test code = Neutrophils) 4.0000 1.5000-6.7 000 Lymphocytes (test code = Lymphocytes) 1.5000 1.2000-3.2 000 PLT (test code = PLT) 230.0000 140.0000-440.0000 RBC (test code = RBC) 5.5500 3.7000-4.9000 WBC (test code = WBC) 5.9000 4.0000-10.0000 MID% (test code = MID%) 6.1000 % 1.2000-11.2000 Lymphocytes % (test code = Lymphocytes %) 26.1000 % 22.400 0-43.6000 Neutrophils % (test code = Neutrophils %) 67.8000 % 48.900 0-69.9000 HCT (test code = HCT) 48.9000 % 34.0000-44.0000 RDW (test code = RDW) 14.9000 11.0000-18.0000 [id number] 11:24:00 Test Item Value Reference Range Comments Creatinine (test code = Creatinine) 0.6000 mg/dL 0.5000-1.200 0 Cr Clearance (Est) (test code = Cr 124.9400 85.0000-125.0 000 Clearance (Est)) Glucose (test code = Glucose) 177.0000 mg/dL 70.0000-118.0000 BUN (test code = BUN) 15.0000 mg/dL 7.0000-22.0000 Sodium (test code = Sodium) 141.0000 mmol/L 128.0000-145.0000 Potassium (test code = Potassium) 3.5000 mmol/L 3.6000-5.1000 Chloride (test code = Chloride) 106.0000 mmol/L 96.0000-108.0000 CO2 (test code = CO2) 31.0000 mmol/L 18.0000-33.0000 Calcium (test code = Calcium) 9.3600 mg/dL 8.0000-10.3000 Alkaline Phosphatase (test code = Alkaline 40.0000 42.00 00-141.0000 Phosphatase) ALT (SGPT) (test code = ALT (SGPT)) 13.0000 10.0000-47.0 000 AST (SGOT) (test code = AST (SGOT)) 18.0000 11.0000-37.0 000 Bilirubin, Total (test code = Bilirubin, 0.4000 mg/dL 0.0000- 1.6000 Total) Albumin (test code = Albumin) 4.3000 g/dL 3.5000-5.5000 Protein, Total (test code = Protein, 6.5000 g/dL 6.4000-8.10 00 Total) eGFR -Italian (test code = eGFR 163.0000 60.0000- 200.0000 -Italian) eGFR Crr-Piykngd-Alftivdn (test code = 135.0000 60.0000-2 00.0000 eGFR Ocl-Djdwflm-Ftypfenh) Magnesium (test code = Magnesium) 1.8000 mg/dL 1.6000-2.3000 Cr Clearance (Est)[id number] 11:24:00 Test Item Value Reference Range Comments Cr Clearance (Est) (test code = Cr 124.9400 85.0000-125.0 000 Clearance (Est)) eGFR -Italian (test code = eGFR 163.0000 60.0000- 200.0000 -Italian) Sodium (test code = Sodium) 141.0000 mmol/L 128.0000-145.0000 eGFR Wgd-Onvdyjw-Muygqmwt (test code = 135.0000 60.0000-2 00.0000 eGFR Bcb-Icfrpbk-Szbipjip) Chloride (test code = Chloride) 106.0000 mmol/L 96.0000-108.0000 CO2 (test code = CO2) 31.0000 mmol/L 18.0000-33.0000 Potassium (test code = Potassium) 3.5000 mmol/L 3.6000-5.1000 AST (SGOT) (test code = AST (SGOT)) 18.0000 11.0000-37.0 000 ALT (SGPT) (test code = ALT (SGPT)) 13.0000 10.0000-47.0 000 Alkaline Phosphatase (test code = Alkaline 40.0000 42.00 00-141.0000 Phosphatase) BUN (test code = BUN) 15.0000 mg/dL 7.0000-22.0000 Magnesium (test code = Magnesium) 1.8000 mg/dL 1.6000-2.3000 Glucose (test code = Glucose) 177.0000 mg/dL 70.0000-118.0000 Bilirubin, Total (test code = Bilirubin, 0.4000 mg/dL 0.0000- 1.6000 Total) Calcium (test code = Calcium) 9.3600 mg/dL 8.0000-10.3000 Creatinine (test code = Creatinine) 0.6000 mg/dL 0.5000-1.200 0 Albumin (test code = Albumin) 4.3000 g/dL 3.5000-5.5000 Protein, Total (test code = Protein, 6.5000 g/dL 6.4000-8.10 00 Total) [id number] 14:38:00 Test Item Value Reference Range Comments PSA (test code = PSA) 0.3000 ng/mL 0.0000-4.0000 [id number] 10:33:00 Test Item Value Reference Range Comments PT (test code = PT) 20.3000 s 10.0000-14.0000 INR (test code = INR) 1.7000 0.0000-3.5000 Coumadin, Current [id number] 10:33:00 Test Item Value Reference Range Comments Coumadin, Current Dose (test code = Coumadin, Current 2.5 qd Dose) Coumadin, New Dose (test code = Coumadin, New Dose) x Return [id number] 10:33:00 Test Item Value Reference Range Comments Return Date (test code = Return Date) x [id number] 10:32:00 Test Item Value Reference Range Comments Creatinine (test code = Creatinine) 0.7000 mg/dL 0.5000-1.200 0 Cr Clearance (Est) (test code = Cr 104.5900 85.0000-125.0 000 Clearance (Est)) Glucose (test code = Glucose) 95.0000 mg/dL 70.0000-118.0000 BUN (test code = BUN) 17.0000 mg/dL 7.0000-22.0000 Sodium (test code = Sodium) 141.0000 mmol/L 128.0000-145.0000 Potassium (test code = Potassium) 3.7000 mmol/L 3.6000-5.1000 Chloride (test code = Chloride) 105.0000 mmol/L 96.0000-108.0000 CO2 (test code = CO2) 32.0000 mmol/L 18.0000-33.0000 Calcium (test code = Calcium) 9.4800 mg/dL 8.0000-10.3000 Alkaline Phosphatase (test code = Alkaline 40.0000 42.00 00-141.0000 Phosphatase) ALT (SGPT) (test code = ALT (SGPT)) 15.0000 10.0000-47.0 000 AST (SGOT) (test code = AST (SGOT)) 18.0000 11.0000-37.0 000 Bilirubin, Total (test code = Bilirubin, 0.5000 mg/dL 0.0000- 1.6000 Total) Albumin (test code = Albumin) 4.3000 g/dL 3.5000-5.5000 Protein, Total (test code = Protein, 6.0000 g/dL 6.4000-8.10 00 Total) eGFR -Italian (test code = eGFR 136.0000 60.0000- 200.0000 -Italian) eGFR Gmx-Hdlueyd-Javabwfo (test code = 112.0000 60.0000-2 00.0000 eGFR Gfe-Kqztvuw-Awaqmfhe) Magnesium (test code = Magnesium) 2.0000 mg/dL 1.6000-2.3000 Alkaline [id number] 10:32:00 Test Item Value Reference Range Comments Alkaline Phosphatase (test code = Alkaline 40.0000 42.00 00-141.0000 Phosphatase) ALT (SGPT) (test code = ALT (SGPT)) 15.0000 10.0000-47.0 000 AST (SGOT) (test code = AST (SGOT)) 18.0000 11.0000-37.0 000 Potassium (test code = Potassium) 3.7000 mmol/L 3.6000-5.1000 CO2 (test code = CO2) 32.0000 mmol/L 18.0000-33.0000 Chloride (test code = Chloride) 105.0000 mmol/L 96.0000-108.0000 eGFR -Italian (test code = eGFR 136.0000 60.0000- 200.0000 -Italian) Cr Clearance (Est) (test code = Cr 104.5900 85.0000-125.0 000 Clearance (Est)) Sodium (test code = Sodium) 141.0000 mmol/L 128.0000-145.0000 eGFR Nuw-Bglwsez-Oalznnnu (test code = 112.0000 60.0000-2 00.0000 eGFR Jbd-Lyradiq-Thvvfhtw) Protein, Total (test code = Protein, 6.0000 g/dL 6.4000-8.10 00 Total) Albumin (test code = Albumin) 4.3000 g/dL 3.5000-5.5000 Creatinine (test code = Creatinine) 0.7000 mg/dL 0.5000-1.200 0 Calcium (test code = Calcium) 9.4800 mg/dL 8.0000-10.3000 Bilirubin, Total (test code = Bilirubin, 0.5000 mg/dL 0.0000- 1.6000 Total) Glucose (test code = Glucose) 95.0000 mg/dL 70.0000-118.0000 Magnesium (test code = Magnesium) 2.0000 mg/dL 1.6000-2.3000 BUN (test code = BUN) 17.0000 mg/dL 7.0000-22.0000 [id number] 10:31:00 Test Item Value Reference Range Comments WBC (test code = WBC) 4.7000 4.0000-10.0000 Lymphocytes % (test code = Lymphocytes %) 32.8000 % 22.400 0-43.6000 MID% (test code = MID%) 7.2000 % 1.2000-11.2000 Neutrophils % (test code = Neutrophils %) 60.0000 % 48.900 0-69.9000 Lymphocytes (test code = Lymphocytes) 1.5000 1.2000-3.2 000 MID (test code = MID) 0.4000 0.1000-1.1000 Neutrophils (test code = Neutrophils) 2.8000 1.5000-6.7 000 RBC (test code = RBC) 5.4100 3.7000-4.9000 HGB (test code = HGB) 14.3000 g/dL 11.2000-18.0000 HCT (test code = HCT) 47.9000 % 34.0000-44.0000 MCV (test code = MCV) 88.5000 fL 80.0000-94.0000 MCH (test code = MCH) 26.5000 pg 27.0000-34.0000 MCHC (test code = MCHC) 29.9000 g/dL 31.5000-36.0000 RDW (test code = RDW) 15.0000 11.0000-18.0000 PLT (test code = PLT) 210.0000 140.0000-440.0000 MPV (test code = MPV) 8.8000 fL 6.8000-10.6000 T4, [id number] 15:10:00 Test Item Value Reference Range Comments T4, Free (test code = T4, Free) 1.5000 ng/dL 0.8200-1.7700 TSH (test code = TSH) 1.4300 0.4500-4.5000 T3, Free (test code = T3, Free) 3.2000 pg/mL 2.0000-4.4000 T3, [id number] 15:10:00 Test Item Value Reference Range Comments T3, Free (test code = T3, Free) 3.2000 pg/mL 2.0000-4.4000 T4, Free (test code = T4, Free) 1.5000 ng/dL 0.8200-1.7700 TSH (test code = TSH) 1.4300 0.4500-4.5000 [id number] 10:53:00 Test Item Value Reference Range Comments Creatinine (test code = Creatinine) 0.7000 mg/dL 0.5000-1.200 0 Cr Clearance (Est) (test code = Cr 99.3400 85.0000-125.0 000 Clearance (Est)) Glucose (test code = Glucose) 105.0000 mg/dL 70.0000-118.0000 BUN (test code = BUN) 20.0000 mg/dL 7.0000-22.0000 Sodium (test code = Sodium) 143.0000 mmol/L 128.0000-145.0000 Potassium (test code = Potassium) 3.7000 mmol/L 3.6000-5.1000 Chloride (test code = Chloride) 103.0000 mmol/L 96.0000-108.0000 CO2 (test code = CO2) 31.0000 mmol/L 18.0000-33.0000 Calcium (test code = Calcium) 9.7800 mg/dL 8.0000-10.3000 Alkaline Phosphatase (test code = Alkaline 41.0000 42.00 00-141.0000 Phosphatase) ALT (SGPT) (test code = ALT (SGPT)) 13.0000 10.0000-47.0 000 AST (SGOT) (test code = AST (SGOT)) 18.0000 11.0000-37.0 000 Bilirubin, Total (test code = Bilirubin, 0.6000 mg/dL 0.0000- 1.6000 Total) Albumin (test code = Albumin) 4.8000 g/dL 3.5000-5.5000 Protein, Total (test code = Protein, 7.0000 g/dL 6.4000-8.10 00 Total) eGFR -Italian (test code = eGFR 136.0000 60.0000- 200.0000 -Italian) eGFR Rra-Phwhxbk-Mxsovgmx (test code = 112.0000 60.0000-2 00.0000 eGFR Elq-Bysfhyn-Pygjhnxn) Magnesium (test code = Magnesium) 1.8000 mg/dL 1.6000-2.3000 [id number] 10:53:00 Test Item Value Reference Range Comments Glucose (test code = Glucose) 105.0000 mg/dL 70.0000-118.0000 BUN (test code = BUN) 20.0000 mg/dL 7.0000-22.0000 Magnesium (test code = Magnesium) 1.8000 mg/dL 1.6000-2.3000 Protein, Total (test code = Protein, 7.0000 g/dL 6.4000-8.10 00 Total) Albumin (test code = Albumin) 4.8000 g/dL 3.5000-5.5000 Bilirubin, Total (test code = Bilirubin, 0.6000 mg/dL 0.0000- 1.6000 Total) Calcium (test code = Calcium) 9.7800 mg/dL 8.0000-10.3000 Creatinine (test code = Creatinine) 0.7000 mg/dL 0.5000-1.200 0 Alkaline Phosphatase (test code = Alkaline 41.0000 42.00 00-141.0000 Phosphatase) eGFR Imu-Kfdtfaw-Izmjzpwg (test code = 112.0000 60.0000-2 00.0000 eGFR Ona-Hqzdmcu-Rsemkomc) Sodium (test code = Sodium) 143.0000 mmol/L 128.0000-145.0000 Cr Clearance (Est) (test code = Cr 99.3400 85.0000-125.0 000 Clearance (Est)) eGFR -Italian (test code = eGFR 136.0000 60.0000- 200.0000 -Italian) Chloride (test code = Chloride) 103.0000 mmol/L 96.0000-108.0000 CO2 (test code = CO2) 31.0000 mmol/L 18.0000-33.0000 Potassium (test code = Potassium) 3.7000 mmol/L 3.6000-5.1000 AST (SGOT) (test code = AST (SGOT)) 18.0000 11.0000-37.0 000 ALT (SGPT) (test code = ALT (SGPT)) 13.0000 10.0000-47.0 000 [id number] 10:52:00 Test Item Value Reference Range Comments WBC (test code = WBC) 6.1000 4.0000-10.0000 Lymphocytes % (test code = Lymphocytes %) 25.5000 % 22.400 0-43.6000 MID% (test code = MID%) 7.3000 % 1.1999-.1999 Neutrophils % (test code = Neutrophils %) 67.2000 % 48.900 0-69.9000 Lymphocytes (test code = Lymphocytes) 1.5000 1.2000-3.2 000 MID (test code = MID) 0.5000 0.1000-1.1000 Neutrophils (test code = Neutrophils) 4.1000 1.5000-6.7 000 RBC (test code = RBC) 5.5500 3.7000-4.9000 HGB (test code = HGB) 15.4000 g/dL 11.2000-18.0000 HCT (test code = HCT) 48.5000 % 34.0000-44.0000 MCV (test code = MCV) 87.5000 fL 80.0000-94.0000 MCH (test code = MCH) 27.8000 pg 27.0000-34.0000 MCHC (test code = MCHC) 31.7000 g/dL 31.5000-36.0000 RDW (test code = RDW) 15.0000 11.0000-18.0000 PLT (test code = PLT) 223.0000 140.0000-440.0000 MPV (test code = MPV) 8.6000 fL 6.8000-10.6000 [id number] 10:52:00 Test Item Value Reference Range Comments HCT (test code = HCT) 48.5000 % 34.0000-44.0000 RDW (test code = RDW) 15.0000 11.0000-18.0000 Neutrophils % (test code = Neutrophils %) 67.2000 % 48.900 0-69.9000 Lymphocytes % (test code = Lymphocytes %) 25.5000 % 22.400 0-43.6000 MID% (test code = MID%) 7.3000 % .1999- MCV (test code = MCV) 87.5000 fL 80.0000-94.0000 MCHC (test code = MCHC) 31.7000 g/dL 31.5000-36.0000 MPV (test code = MPV) 8.6000 fL 6.8000-10.6000 MCH (test code = MCH) 27.8000 pg 27.0000-34.0000 HGB (test code = HGB) 15.4000 g/dL 11.1999-18.0000 WBC (test code = WBC) 6.1000 4.0000-10.0000 PLT (test code = PLT) 223.0000 140.0000-440.0000 MID (test code = MID) 0.5000 0.1000-1.1000 RBC (test code = RBC) 5.5500 3.7000-4.9000 Lymphocytes (test code = Lymphocytes) 1.5000 1.2000-3.2 000 Neutrophils (test code = Neutrophils) 4.1000 1.5000-6.7 000 [id number] 10:45:00 Test Item Value Reference Range Comments PT (test code = PT) 26.0000 s 10.0000-14.0000 INR (test code = INR) 2.2000 0.0000-3.5000 Coumadin, Current [id number] 10:45:00 Test Item Value Reference Range Comments Coumadin, Current Dose (test code = .5 everyday Coumadin, Current Dose) Coumadin, New Dose (test code = Continue same dosage Coumadin, New Dose) Return [id number] 10:45:00 Test Item Value Reference Range Comments Return Date (test code = Return Date) x [id number] 10:39:00 Test Item Value Reference Range Comments WBC (test code = WBC) 6.1000 4.0000-10.0000 Lymphocytes % (test code = Lymphocytes %) 31.7000 % 22.400 0-43.6000 MID% (test code = MID%) 6.6000 % 1.2000-11.2000 Neutrophils % (test code = Neutrophils %) 61.7000 % 48.900 0-69.9000 Lymphocytes (test code = Lymphocytes) 1.9000 1.2000-3.2 000 MID (test code = MID) 0.5000 0.1000-1.1000 Neutrophils (test code = Neutrophils) 3.7000 1.5000-6.7 000 RBC (test code = RBC) 5.6000 3.7000-4.9000 HGB (test code = HGB) 14.8000 g/dL 11.1999-18.0000 HCT (test code = HCT) 48.0000 % 34.0000-44.0000 MCV (test code = MCV) 85.8000 fL 80.0000-94.0000 MCH (test code = MCH) 26.5000 pg 27.0000-34.0000 MCHC (test code = MCHC) 30.8000 g/dL 31.5000-36.0000 RDW (test code = RDW) 15.1000 11.0000-18.0000 PLT (test code = PLT) 234.0000 140.0000-440.0000 MPV (test code = MPV) 8.7000 fL 6.8000-10.6000 [id number] 10:39:00 Test Item Value Reference Range Comments MID% (test code = MID%) 6.6000 % 1.2000-11.2000 Lymphocytes % (test code = Lymphocytes %) 31.7000 % 22.400 0-43.6000 Neutrophils % (test code = Neutrophils %) 61.7000 % 48.900 0-69.9000 HCT (test code = HCT) 48.0000 % 34.0000-44.0000 RDW (test code = RDW) 15.1000 11.0000-18.0000 MCH (test code = MCH) 26.5000 pg 27.0000-34.0000 Neutrophils (test code = Neutrophils) 3.7000 1.5000-6.7 000 Lymphocytes (test code = Lymphocytes) 1.9000 1.2000-3.2 000 RBC (test code = RBC) 5.6000 3.7000-4.9000 PLT (test code = PLT) 234.0000 140.0000-440.0000 MID (test code = MID) 0.5000 0.1000-1.1000 WBC (test code = WBC) 6.1000 4.0000-10.0000 MPV (test code = MPV) 8.7000 fL 6.8000-10.6000 MCV (test code = MCV) 85.8000 fL 80.0000-94.0000 HGB (test code = HGB) 14.8000 g/dL 11.2000-18.0000 MCHC (test code = MCHC) 30.8000 g/dL 31.5000-36.0000 [id number] 10:38:00 Test Item Value Reference Range Comments Creatinine (test code = Creatinine) 0.8000 mg/dL 0.5000-1.200 0 Cr Clearance (Est) (test code = Cr 89.2800 85.0000-125.0 000 Clearance (Est)) Glucose (test code = Glucose) 86.0000 mg/dL 70.0000-118.0000 BUN (test code = BUN) 21.0000 mg/dL 7.0000-22.0000 Sodium (test code = Sodium) 143.0000 mmol/L 128.0000-145.0000 Potassium (test code = Potassium) 3.7000 mmol/L 3.6000-5.1000 Chloride (test code = Chloride) 105.0000 mmol/L 96.0000-108.0000 CO2 (test code = CO2) 31.0000 mmol/L 18.0000-33.0000 Calcium (test code = Calcium) 9.6100 mg/dL 8.0000-10.3000 Alkaline Phosphatase (test code = Alkaline 42.0000 42.00 00-141.0000 Phosphatase) ALT (SGPT) (test code = ALT (SGPT)) 17.0000 10.0000-47.0 000 AST (SGOT) (test code = AST (SGOT)) 16.0000 11.0000-37.0 000 Bilirubin, Total (test code = Bilirubin, 0.6000 mg/dL 0.0000- 1.6000 Total) Albumin (test code = Albumin) 4.6000 g/dL 3.5000-5.5000 Protein, Total (test code = Protein, 6.8000 g/dL 6.4000-8.10 00 Total) eGFR -Italian (test code = eGFR 117.0000 60.0000- 200.0000 -Italian) eGFR Nbx-Wwqxtfg-Sghxpnfy (test code = 97.0000 60.0000-2 00.0000 eGFR Qsy-Lahvnvi-Zpdvtigw) Magnesium (test code = Magnesium) 1.8000 mg/dL 1.6000-2.3000 [id number] 10:38:00 Test Item Value Reference Range Comments Albumin (test code = Albumin) 4.6000 g/dL 3.5000-5.5000 Protein, Total (test code = Protein, 6.8000 g/dL 6.4000-8.10 00 Total) Calcium (test code = Calcium) 9.6100 mg/dL 8.0000-10.3000 Bilirubin, Total (test code = Bilirubin, 0.6000 mg/dL 0.0000- 1.6000 Total) Creatinine (test code = Creatinine) 0.8000 mg/dL 0.5000-1.200 0 Magnesium (test code = Magnesium) 1.8000 mg/dL 1.6000-2.3000 Glucose (test code = Glucose) 86.0000 mg/dL 70.0000-118.0000 BUN (test code = BUN) 21.0000 mg/dL 7.0000-22.0000 eGFR Srz-Xzettqz-Yfzeqfxt (test code = 97.0000 60.0000-2 00.0000 eGFR Cce-Trxhkdy-Bgkolpys) eGFR -Italian (test code = eGFR 117.0000 60.0000- 200.0000 -Italian) Cr Clearance (Est) (test code = Cr 89.2800 85.0000-125.0 000 Clearance (Est)) ALT (SGPT) (test code = ALT (SGPT)) 17.0000 10.0000-47.0 000 AST (SGOT) (test code = AST (SGOT)) 16.0000 11.0000-37.0 000 Chloride (test code = Chloride) 105.0000 mmol/L 96.0000-108.0000 Sodium (test code = Sodium) 143.0000 mmol/L 128.0000-145.0000 Potassium (test code = Potassium) 3.7000 mmol/L 3.6000-5.1000 CO2 (test code = CO2) 31.0000 mmol/L 18.0000-33.0000 Alkaline Phosphatase (test code = Alkaline 42.0000 42.00 00-141.0000 Phosphatase) [id number] 11:12:00 Test Item Value Reference Range Comments WBC (test code = WBC) 5.6000 4.0000-10.0000 Lymphocytes % (test code = Lymphocytes %) 24.3000 % 22.400 0-43.6000 MID% (test code = MID%) 6.8000 % 1.2000-11.2000 Neutrophils % (test code = Neutrophils %) 68.9000 % 48.900 0-69.9000 Lymphocytes (test code = Lymphocytes) 1.3000 1.2000-3.2 000 MID (test code = MID) 0.4000 0.1000-1.1000 Neutrophils (test code = Neutrophils) 3.9000 1.5000-6.7 000 RBC (test code = RBC) 5.5900 3.7000-4.9000 HGB (test code = HGB) 15.0000 g/dL 11.2000-18.0000 HCT (test code = HCT) 47.4000 % 34.0000-44.0000 MCV (test code = MCV) 84.9000 fL 80.0000-94.0000 MCH (test code = MCH) 26.9000 pg 27.0000-34.0000 MCHC (test code = MCHC) 31.7000 g/dL 31.5000-36.0000 RDW (test code = RDW) 15.9000 11.0000-18.0000 PLT (test code = PLT) 217.0000 140.0000-440.0000 MPV (test code = MPV) 8.4000 fL 6.8000-10.6000 [id number] 11:12:00 Test Item Value Reference Range Comments Creatinine (test code = Creatinine) 0.8000 mg/dL 0.5000-1.200 0 Cr Clearance (Est) (test code = Cr 86.6500 85.0000-125.0 000 Clearance (Est)) Glucose (test code = Glucose) 106.0000 mg/dL 70.0000-118.0000 BUN (test code = BUN) 17.0000 mg/dL 7.0000-22.0000 Sodium (test code = Sodium) 142.0000 mmol/L 128.0000-145.0000 Potassium (test code = Potassium) 3.4000 mmol/L 3.6000-5.1000 Chloride (test code = Chloride) 101.0000 mmol/L 96.0000-108.0000 CO2 (test code = CO2) 34.0000 mmol/L 18.0000-33.0000 Calcium (test code = Calcium) 10.4300 mg/dL 8.0000-10.3000 Alkaline Phosphatase (test code = Alkaline 46.0000 42.00 00-141.0000 Phosphatase) ALT (SGPT) (test code = ALT (SGPT)) 18.0000 10.0000-47.0 000 AST (SGOT) (test code = AST (SGOT)) 18.0000 11.0000-37.0 000 Bilirubin, Total (test code = Bilirubin, 0.8000 mg/dL 0.0000- 1.6000 Total) Albumin (test code = Albumin) 4.7000 g/dL 3.5000-5.5000 Protein, Total (test code = Protein, 6.6000 g/dL 6.4000-8.10 00 Total) eGFR -Italian (test code = eGFR 117.0000 60.0000- 200.0000 -Italian) eGFR Ysm-Hpmghvu-Mggdtobs (test code = 97.0000 60.0000-2 00.0000 eGFR Xjf-Xamrocl-Hppcwmal) Magnesium (test code = Magnesium) 1.9000 mg/dL 1.6000-2.3000 Alkaline [id number] 11:12:00 Test Item Value Reference Range Comments Alkaline Phosphatase (test code = Alkaline 46.0000 42.00 00-141.0000 Phosphatase) CO2 (test code = CO2) 34.0000 mmol/L 18.0000-33.0000 Potassium (test code = Potassium) 3.4000 mmol/L 3.6000-5.1000 Sodium (test code = Sodium) 142.0000 mmol/L 128.0000-145.0000 Chloride (test code = Chloride) 101.0000 mmol/L 96.0000-108.0000 AST (SGOT) (test code = AST (SGOT)) 18.0000 11.0000-37.0 000 ALT (SGPT) (test code = ALT (SGPT)) 18.0000 10.0000-47.0 000 Cr Clearance (Est) (test code = Cr 86.6500 85.0000-125.0 000 Clearance (Est)) eGFR -Italian (test code = eGFR 117.0000 60.0000- 200.0000 -Italian) eGFR Edw-Bfdbnzg-Wdrzvdby (test code = 97.0000 60.0000-2 00.0000 eGFR Sjw-Ggnyixe-Nuktelcz) BUN (test code = BUN) 17.0000 mg/dL 7.0000-22.0000 Glucose (test code = Glucose) 106.0000 mg/dL 70.0000-118.0000 Magnesium (test code = Magnesium) 1.9000 mg/dL 1.6000-2.3000 Bilirubin, Total (test code = Bilirubin, 0.8000 mg/dL 0.0000- 1.6000 Total) Creatinine (test code = Creatinine) 0.8000 mg/dL 0.5000-1.200 0 Calcium (test code = Calcium) 10.4300 mg/dL 8.0000-10.3000 Albumin (test code = Albumin) 4.7000 g/dL 3.5000-5.5000 Protein, Total (test code = Protein, 6.6000 g/dL 6.4000-8.10 00 Total) Lymphocytes %[id number] 11:12:00 Test Item Value Reference Range Comments Lymphocytes % (test code = Lymphocytes %) 24.3000 % 22.400 0-43.6000 MID% (test code = MID%) 6.8000 % 1.1999-11.1999 HCT (test code = HCT) 47.4000 % 34.0000-44.0000 Neutrophils % (test code = Neutrophils %) 68.9000 % 48.900 0-69.9000 RDW (test code = RDW) 15.9000 11.0000-18.0000 MCH (test code = MCH) 26.9000 pg 27.0000-34.0000 Lymphocytes (test code = Lymphocytes) 1.3000 1.2000-3.2 000 Neutrophils (test code = Neutrophils) 3.9000 1.5000-6.7 000 WBC (test code = WBC) 5.6000 4.0000-10.0000 PLT (test code = PLT) 217.0000 140.0000-440.0000 MID (test code = MID) 0.4000 0.1000-1.1000 RBC (test code = RBC) 5.5900 3.7000-4.9000 MCHC (test code = MCHC) 31.7000 g/dL 31.5000-36.0000 HGB (test code = HGB) 15.0000 g/dL 11.1999-18.0000 MCV (test code = MCV) 84.9000 fL 80.0000-94.0000 MPV (test code = MPV) 8.4000 fL 6.8000-10.6000 [id number] 10:42:00 Test Item Value Reference Range Comments WBC (test code = WBC) 5.3000 4.0000-10.0000 Lymphocytes % (test code = Lymphocytes %) 26.3000 % 22.400 0-43.6000 MID% (test code = MID%) 6.0000 % .1999- Neutrophils % (test code = Neutrophils %) 67.7000 % 48.900 0-69.9000 Lymphocytes (test code = Lymphocytes) 1.4000 1.2000-3.2 000 MID (test code = MID) 0.3000 0.1000-1.1000 Neutrophils (test code = Neutrophils) 3.6000 1.5000-6.7 000 RBC (test code = RBC) 5.8900 3.7000-4.9000 HGB (test code = HGB) 15.0000 g/dL 11.2000-18.0000 HCT (test code = HCT) 48.1000 % 34.0000-44.0000 MCV (test code = MCV) 81.6000 fL 80.0000-94.0000 MCH (test code = MCH) 25.5000 pg 27.0000-34.0000 MCHC (test code = MCHC) 31.3000 g/dL 31.5000-36.0000 RDW (test code = RDW) 16.1000 11.0000-18.0000 PLT (test code = PLT) 218.0000 140.0000-440.0000 MPV (test code = MPV) 7.9000 fL 6.8000-10.6000 [id number] 10:42:00 Test Item Value Reference Range Comments Creatinine (test code = Creatinine) 0.6000 mg/dL 0.5000-1.200 0 Cr Clearance (Est) (test code = Cr 114.8400 85.0000-125.0 000 Clearance (Est)) Glucose (test code = Glucose) 143.0000 mg/dL 70.0000-118.0000 BUN (test code = BUN) 25.0000 mg/dL 7.0000-22.0000 Sodium (test code = Sodium) 144.0000 mmol/L 128.0000-145.0000 Potassium (test code = Potassium) 3.4000 mmol/L 3.6000-5.1000 Chloride (test code = Chloride) 105.0000 mmol/L 96.0000-108.0000 CO2 (test code = CO2) 30.0000 mmol/L 18.0000-33.0000 Calcium (test code = Calcium) 9.6500 mg/dL 8.0000-10.3000 Alkaline Phosphatase (test code = Alkaline 50.0000 42.00 00-141.0000 Phosphatase) ALT (SGPT) (test code = ALT (SGPT)) 16.0000 10.0000-47.0 000 AST (SGOT) (test code = AST (SGOT)) 21.0000 11.0000-37.0 000 Bilirubin, Total (test code = Bilirubin, 0.5000 mg/dL 0.0000- 1.6000 Total) Albumin (test code = Albumin) 4.4000 g/dL 3.5000-5.5000 Protein, Total (test code = Protein, 6.5000 g/dL 6.4000-8.10 00 Total) eGFR -Italian (test code = eGFR 163.0000 60.0000- 200.0000 -Italian) eGFR Qnd-Hcchpyy-Mlrarvpk (test code = 135.0000 60.0000-2 00.0000 eGFR Ypj-Scpythc-Kpambcas) Magnesium (test code = Magnesium) 1.8000 mg/dL 1.6000-2.3000 [id number] 10:42:00 Test Item Value Reference Range Comments MCH (test code = MCH) 25.5000 pg 27.0000-34.0000 MPV (test code = MPV) 7.9000 fL 6.8000-10.6000 MCV (test code = MCV) 81.6000 fL 80.0000-94.0000 MCHC (test code = MCHC) 31.3000 g/dL 31.5000-36.0000 HGB (test code = HGB) 15.0000 g/dL 11.2000-18.0000 RBC (test code = RBC) 5.8900 3.7000-4.9000 PLT (test code = PLT) 218.0000 140.0000-440.0000 MID (test code = MID) 0.3000 0.1000-1.1000 WBC (test code = WBC) 5.3000 4.0000-10.0000 Neutrophils (test code = Neutrophils) 3.6000 1.5000-6.7 000 Lymphocytes (test code = Lymphocytes) 1.4000 1.2000-3.2 000 RDW (test code = RDW) 16.1000 11.0000-18.0000 Neutrophils % (test code = Neutrophils %) 67.7000 % 48.900 0-69.9000 HCT (test code = HCT) 48.1000 % 34.0000-44.0000 Lymphocytes % (test code = Lymphocytes %) 26.3000 % 22.400 0-43.6000 MID% (test code = MID%) 6.0000 % 1.2000-11.2000 Protein, [id number] 10:42:00 Test Item Value Reference Range Comments Protein, Total (test code = Protein, 6.5000 g/dL 6.4000-8.10 00 Total) Albumin (test code = Albumin) 4.4000 g/dL 3.5000-5.5000 Calcium (test code = Calcium) 9.6500 mg/dL 8.0000-10.3000 Creatinine (test code = Creatinine) 0.6000 mg/dL 0.5000-1.200 0 Bilirubin, Total (test code = Bilirubin, 0.5000 mg/dL 0.0000- 1.6000 Total) Magnesium (test code = Magnesium) 1.8000 mg/dL 1.6000-2.3000 Glucose (test code = Glucose) 143.0000 mg/dL 70.0000-118.0000 BUN (test code = BUN) 25.0000 mg/dL 7.0000-22.0000 eGFR Fqf-Rnrreby-Rogzilol (test code = 135.0000 60.0000-2 00.0000 eGFR Weu-Oyjauvh-Gtuqjjqi) Cr Clearance (Est) (test code = Cr 114.8400 85.0000-125.0 000 Clearance (Est)) eGFR -Italian (test code = eGFR 163.0000 60.0000- 200.0000 -Italian) ALT (SGPT) (test code = ALT (SGPT)) 16.0000 10.0000-47.0 000 AST (SGOT) (test code = AST (SGOT)) 21.0000 11.0000-37.0 000 Chloride (test code = Chloride) 105.0000 mmol/L 96.0000-108.0000 CO2 (test code = CO2) 30.0000 mmol/L 18.0000-33.0000 Sodium (test code = Sodium) 144.0000 mmol/L 128.0000-145.0000 Potassium (test code = Potassium) 3.4000 mmol/L 3.6000-5.1000 Alkaline Phosphatase (test code = Alkaline 50.0000 42.00 00-141.0000 Phosphatase) T4, [id number] 12:07:00 Test Item Value Reference Range Comments T4, Free (test code = T4, Free) 1.3700 ng/dL 0.8200-1.7700 TSH (test code = TSH) 1.3800 0.4500-4.5000 T3, Free (test code = T3, Free) 3.3000 pg/mL 2.0000-4.4000 [id number] 11:31:00 Test Item Value Reference Range Comments PT (test code = PT) 23.8000 s 10.0000-14.0000 INR (test code = INR) 2.0000 0.0000-3.5000 Coumadin, Current [id number] 11:31:00 Test Item Value Reference Range Comments Coumadin, Current Dose (test code = Coumadin, 2.5mg everyday Current Dose) Coumadin, New Dose (test code = Coumadin, New x Dose) Return [id number] 11:31:00 Test Item Value Reference Range Comments Return Date (test code = Return Date) x [id number] 11:31:00 Test Item Value Reference Range Comments INR (test code = INR) 2.0000 0.0000-3.5000 PT (test code = PT) 23.8000 s 10.0000-14.0000 Coumadin, New [id number] 11:31:00 Test Item Value Reference Range Comments Coumadin, New Dose (test code = Coumadin, New x Dose) Coumadin, Current Dose (test code = Coumadin, 2.5mg everyday Current Dose) [id number] 11:18:00 Test Item Value Reference Range Comments Magnesium (test code = Magnesium) 1.6000 mg/dL 1.6000-2.3000 [id number] 11:17:00 Test Item Value Reference Range Comments WBC (test code = WBC) 5.2000 4.0000-10.0000 Lymphocytes % (test code = Lymphocytes %) 31.3000 % 22.400 0-43.6000 MID% (test code = MID%) 6.9000 % 1.2000-11.2000 Neutrophils % (test code = Neutrophils %) 61.8000 % 48.900 0-69.9000 Lymphocytes (test code = Lymphocytes) 1.6000 1.2000-3.2 000 MID (test code = MID) 0.4000 0.1000-1.1000 Neutrophils (test code = Neutrophils) 3.2000 1.5000-6.7 000 RBC (test code = RBC) 5.7400 3.7000-4.9000 HGB (test code = HGB) 14.6000 g/dL 11.2000-18.0000 HCT (test code = HCT) 46.4000 % 34.0000-44.0000 MCV (test code = MCV) 80.8000 fL 80.0000-94.0000 MCH (test code = MCH) 25.5000 pg 27.0000-34.0000 MCHC (test code = MCHC) 31.6000 g/dL 31.5000-36.0000 RDW (test code = RDW) 16.8000 11.0000-18.0000 PLT (test code = PLT) 200.0000 140.0000-440.0000 MPV (test code = MPV) 8.0000 fL 6.8000-10.6000 [id number] 11:17:00 Test Item Value Reference Range Comments Creatinine (test code = Creatinine) 0.7000 mg/dL 0.5000-1.200 0 Cr Clearance (Est) (test code = Cr 97.5000 85.0000-125.0 000 Clearance (Est)) Glucose (test code = Glucose) 82.0000 mg/dL 70.0000-118.0000 BUN (test code = BUN) 20.0000 mg/dL 7.0000-22.0000 Sodium (test code = Sodium) 144.0000 mmol/L 128.0000-145.0000 Potassium (test code = Potassium) 3.8000 mmol/L 3.6000-5.1000 Chloride (test code = Chloride) 107.0000 mmol/L 96.0000-108.0000 CO2 (test code = CO2) 31.0000 mmol/L 18.0000-33.0000 Calcium (test code = Calcium) 8.9700 mg/dL 8.0000-10.3000 Alkaline Phosphatase (test code = Alkaline 43.0000 42.00 00-141.0000 Phosphatase) ALT (SGPT) (test code = ALT (SGPT)) 12.0000 10.0000-47.0 000 AST (SGOT) (test code = AST (SGOT)) 15.0000 11.0000-37.0 000 Bilirubin, Total (test code = Bilirubin, 0.3000 mg/dL 0.0000- 1.6000 Total) Albumin (test code = Albumin) 4.2000 g/dL 3.5000-5.5000 Protein, Total (test code = Protein, 6.1000 g/dL 6.4000-8.10 00 Total) eGFR -Italian (test code = eGFR 137.0000 60.0000- 200.0000 -Italian) eGFR Nck-Smrdfbe-Drfgqdyl (test code = 113.0000 60.0000-2 00.0000 eGFR Caq-Coxcxfq-Elkpxojv) [id number] 11:17:00 Test Item Value Reference Range Comments MCH (test code = MCH) 25.5000 pg 27.0000-34.0000 MCV (test code = MCV) 80.8000 fL 80.0000-94.0000 MPV (test code = MPV) 8.0000 fL 6.8000-10.6000 HGB (test code = HGB) 14.6000 g/dL 11.2000-18.0000 MCHC (test code = MCHC) 31.6000 g/dL 31.5000-36.0000 RBC (test code = RBC) 5.7400 3.7000-4.9000 WBC (test code = WBC) 5.2000 4.0000-10.0000 MID (test code = MID) 0.4000 0.1000-1.1000 PLT (test code = PLT) 200.0000 140.0000-440.0000 Lymphocytes (test code = Lymphocytes) 1.6000 1.2000-3.2 000 Neutrophils (test code = Neutrophils) 3.2000 1.5000-6.7 000 RDW (test code = RDW) 16.8000 11.0000-18.0000 Lymphocytes % (test code = Lymphocytes %) 31.3000 % 22.400 0-43.6000 MID% (test code = MID%) 6.9000 % 1.2000-11.2000 HCT (test code = HCT) 46.4000 % 34.0000-44.0000 Neutrophils % (test code = Neutrophils %) 61.8000 % 48.900 0-69.9000 Bilirubin, [id number] 11:17:00 Test Item Value Reference Range Comments Bilirubin, Total (test code = Bilirubin, 0.3000 mg/dL 0.0000- 1.6000 Total) Creatinine (test code = Creatinine) 0.7000 mg/dL 0.5000-1.200 0 Calcium (test code = Calcium) 8.9700 mg/dL 8.0000-10.3000 Albumin (test code = Albumin) 4.2000 g/dL 3.5000-5.5000 Protein, Total (test code = Protein, 6.1000 g/dL 6.4000-8.10 00 Total) BUN (test code = BUN) 20.0000 mg/dL 7.0000-22.0000 Glucose (test code = Glucose) 82.0000 mg/dL 70.0000-118.0000 eGFR Jzx-Teojumu-Wuirpabf (test code = 113.0000 60.0000-2 00.0000 eGFR Ftm-Rfocvuz-Wayzkvvk) eGFR -Italian (test code = eGFR 137.0000 60.0000- 200.0000 -Italian) Cr Clearance (Est) (test code = Cr 97.5000 85.0000-125.0 000 Clearance (Est)) Potassium (test code = Potassium) 3.8000 mmol/L 3.6000-5.1000 Sodium (test code = Sodium) 144.0000 mmol/L 128.0000-145.0000 CO2 (test code = CO2) 31.0000 mmol/L 18.0000-33.0000 Chloride (test code = Chloride) 107.0000 mmol/L 96.0000-108.0000 AST (SGOT) (test code = AST (SGOT)) 15.0000 11.0000-37.0 000 ALT (SGPT) (test code = ALT (SGPT)) 12.0000 10.0000-47.0 000 Alkaline Phosphatase (test code = Alkaline 43.0000 42.00 00-141.0000 Phosphatase) T4, [id number] 14:21:00 Test Item Value Reference Range Comments T4, Free (test code = T4, Free) 1.2500 ng/dL 0.8200-1.7700 TSH (test code = TSH) 0.5900 0.4500-4.5000 T3, Free (test code = T3, Free) 3.5000 pg/mL 2.0000-4.4000 [id number] 11:55:00 Test Item Value Reference Range Comments PT (test code = PT) 37.7000 s 10.0000-14.0000 INR (test code = INR) 3.1000 0.0000-3.5000 Coumadin, Current [id number] 11:55:00 Test Item Value Reference Range Comments Coumadin, Current Dose (test code = Coumadin, Current x Dose) Coumadin, New Dose (test code = Coumadin, New Dose) x Return [id number] 11:55:00 Test Item Value Reference Range Comments Return Date (test code = Return Date) x [id number] 11:55:00 Test Item Value Reference Range Comments INR (test code = INR) 3.1000 0.0000-3.5000 PT (test code = PT) 37.7000 s 10.0000-14.0000 [id number] 11:36:00 Test Item Value Reference Range Comments Creatinine (test code = Creatinine) 0.7000 mg/dL 0.5000-1.200 0 Cr Clearance (Est) (test code = Cr 95.2400 85.0000-125.0 000 Clearance (Est)) Glucose (test code = Glucose) 105.0000 mg/dL 70.0000-118.0000 BUN (test code = BUN) 19.0000 mg/dL 7.0000-22.0000 Sodium (test code = Sodium) 143.0000 mmol/L 128.0000-145.0000 Potassium (test code = Potassium) 3.7000 mmol/L 3.6000-5.1000 Chloride (test code = Chloride) 106.0000 mmol/L 96.0000-108.0000 CO2 (test code = CO2) 33.0000 mmol/L 18.0000-33.0000 Calcium (test code = Calcium) 10.1100 mg/dL 8.0000-10.3000 Alkaline Phosphatase (test code = Alkaline 46.0000 42.00 00-141.0000 Phosphatase) ALT (SGPT) (test code = ALT (SGPT)) 13.0000 10.0000-47.0 000 AST (SGOT) (test code = AST (SGOT)) 15.0000 11.0000-37.0 000 Bilirubin, Total (test code = Bilirubin, 0.3000 mg/dL 0.0000- 1.6000 Total) Albumin (test code = Albumin) 4.2000 g/dL 3.5000-5.5000 Protein, Total (test code = Protein, 6.3000 g/dL 6.4000-8.10 00 Total) eGFR -Italian (test code = eGFR 137.0000 60.0000- 200.0000 -Italian) eGFR Xgu-Lndcxwc-Wufpcord (test code = 113.0000 60.0000-2 00.0000 eGFR Cir-Znsvjcg-Coirwzrq) Cr Clearance (Est)[id number] 11:36:00 Test Item Value Reference Range Comments Cr Clearance (Est) (test code = Cr 95.2400 85.0000-125.0 000 Clearance (Est)) eGFR -Italian (test code = eGFR 137.0000 60.0000- 200.0000 -Italian) eGFR Nrl-Zsximbm-Vcaoocfg (test code = 113.0000 60.0000-2 00.0000 eGFR Axg-Cjjsqtj-Ysqrozzs) Sodium (test code = Sodium) 143.0000 mmol/L 128.0000-145.0000 ALT (SGPT) (test code = ALT (SGPT)) 13.0000 10.0000-47.0 000 AST (SGOT) (test code = AST (SGOT)) 15.0000 11.0000-37.0 000 Chloride (test code = Chloride) 106.0000 mmol/L 96.0000-108.0000 CO2 (test code = CO2) 33.0000 mmol/L 18.0000-33.0000 Potassium (test code = Potassium) 3.7000 mmol/L 3.6000-5.1000 Alkaline Phosphatase (test code = Alkaline 46.0000 42.00 00-141.0000 Phosphatase) Protein, Total (test code = Protein, 6.3000 g/dL 6.4000-8.10 00 Total) Albumin (test code = Albumin) 4.2000 g/dL 3.5000-5.5000 Calcium (test code = Calcium) 10.1100 mg/dL 8.0000-10.3000 Creatinine (test code = Creatinine) 0.7000 mg/dL 0.5000-1.200 0 Bilirubin, Total (test code = Bilirubin, 0.3000 mg/dL 0.0000- 1.6000 Total) Glucose (test code = Glucose) 105.0000 mg/dL 70.0000-118.0000 BUN (test code = BUN) 19.0000 mg/dL 7.0000-22.0000 [id number] 11:35:00 Test Item Value Reference Range Comments WBC (test code = WBC) 4.8000 4.0000-10.0000 Lymphocytes % (test code = Lymphocytes %) 25.7000 % 22.400 0-43.6000 MID% (test code = MID%) 6.5000 % 1.2000-11.2000 Neutrophils % (test code = Neutrophils %) 67.8000 % 48.900 0-69.9000 Lymphocytes (test code = Lymphocytes) 1.2000 1.2000-3.2 000 MID (test code = MID) 0.4000 0.1000-1.1000 Neutrophils (test code = Neutrophils) 3.2000 1.5000-6.7 000 RBC (test code = RBC) 5.9300 3.7000-4.9000 HGB (test code = HGB) 14.1000 g/dL 11.2000-18.0000 HCT (test code = HCT) 47.5000 % 34.0000-44.0000 MCV (test code = MCV) 80.0000 fL 80.0000-94.0000 MCH (test code = MCH) 23.8000 pg 27.0000-34.0000 MCHC (test code = MCHC) 29.7000 g/dL 31.5000-36.0000 RDW (test code = RDW) 17.1000 11.0000-18.0000 PLT (test code = PLT) 218.0000 140.0000-440.0000 MPV (test code = MPV) 8.1000 fL 6.8000-10.6000 [id number] 11:35:00 Test Item Value Reference Range Comments RBC (test code = RBC) 5.9300 3.7000-4.9000 PLT (test code = PLT) 218.0000 140.0000-440.0000 MID (test code = MID) 0.4000 0.1000-1.1000 WBC (test code = WBC) 4.8000 4.0000-10.0000 Lymphocytes (test code = Lymphocytes) 1.2000 1.2000-3.2 000 Neutrophils (test code = Neutrophils) 3.2000 1.5000-6.7 000 MPV (test code = MPV) 8.1000 fL 6.8000-10.6000 MCV (test code = MCV) 80.0000 fL 80.0000-94.0000 MCHC (test code = MCHC) 29.7000 g/dL 31.5000-36.0000 HGB (test code = HGB) 14.1000 g/dL 11.1999-18.0000 RDW (test code = RDW) 17.1000 11.0000-18.0000 Lymphocytes % (test code = Lymphocytes %) 25.7000 % 22.400 0-43.6000 MID% (test code = MID%) 6.5000 % 1.2000-11.2000 Neutrophils % (test code = Neutrophils %) 67.8000 % 48.900 0-69.9000 HCT (test code = HCT) 47.5000 % 34.0000-44.0000 MCH (test code = MCH) 23.8000 pg 27.0000-34.0000 T4, [id number] 12:00:00 Test Item Value Reference Range Comments T4, Free (test code = T4, Free) 1.3300 ng/dL 0.8200-1.7700 TSH (test code = TSH) 1.3100 0.4500-4.5000 T3, Free (test code = T3, Free) 3.6000 pg/mL 2.0000-4.4000 T3, [id number] 12:00:00 Test Item Value Reference Range Comments T3, Free (test code = T3, Free) 3.6000 pg/mL 2.0000-4.4000 T4, Free (test code = T4, Free) 1.3300 ng/dL 0.8200-1.7700 TSH (test code = TSH) 1.3100 0.4500-4.5000 [id number] 11:37:00 Test Item Value Reference Range Comments PT (test code = PT) 35.8000 s 10.0000-14.0000 INR (test code = INR) 3.0000 0.0000-3.5000 Coumadin, Current [id number] 11:37:00 Test Item Value Reference Range Comments Coumadin, Current Dose (test code = Coumadin, Current x Dose) Coumadin, New Dose (test code = Coumadin, New Dose) x Return [id number] 11:37:00 Test Item Value Reference Range Comments Return Date (test code = Return Date) x Coumadin, New [id number] 11:37:00 Test Item Value Reference Range Comments Coumadin, New Dose (test code = Coumadin, New Dose) x Coumadin, Current Dose (test code = Coumadin, Current x Dose) [id number] 10:57:00 Test Item Value Reference Range Comments WBC (test code = WBC) 6.0000 4.0000-10.0000 Lymphocytes % (test code = Lymphocytes %) 31.7000 % 22.400 0-43.6000 MID% (test code = MID%) 8.1000 % 1.2000-11.2000 Neutrophils % (test code = Neutrophils %) 60.2000 % 48.900 0-69.9000 Lymphocytes (test code = Lymphocytes) 1.9000 1.2000-3.2 000 MID (test code = MID) 0.5000 0.1000-1.1000 Neutrophils (test code = Neutrophils) 3.6000 1.5000-6.7 000 RBC (test code = RBC) 5.5100 3.7000-4.9000 HGB (test code = HGB) 13.6000 g/dL 11.2000-18.0000 HCT (test code = HCT) 43.3000 % 34.0000-44.0000 MCV (test code = MCV) 78.6000 fL 80.0000-94.0000 MCH (test code = MCH) 24.7000 pg 27.0000-34.0000 MCHC (test code = MCHC) 31.3000 g/dL 31.5000-36.0000 RDW (test code = RDW) 17.9000 11.0000-18.0000 PLT (test code = PLT) 212.0000 140.0000-440.0000 MPV (test code = MPV) 8.0000 fL 6.8000-10.6000 [id number] 10:57:00 Test Item Value Reference Range Comments Creatinine (test code = Creatinine) 0.6000 mg/dL 0.5000-1.200 0 Cr Clearance (Est) (test code = Cr 109.7100 85.0000-125.0 000 Clearance (Est)) Glucose (test code = Glucose) 96.0000 mg/dL 70.0000-118.0000 BUN (test code = BUN) 21.0000 mg/dL 7.0000-22.0000 Sodium (test code = Sodium) 141.0000 mmol/L 128.0000-145.0000 Potassium (test code = Potassium) 3.6000 mmol/L 3.6000-5.1000 Chloride (test code = Chloride) 105.0000 mmol/L 96.0000-108.0000 CO2 (test code = CO2) 34.0000 mmol/L 18.0000-33.0000 Calcium (test code = Calcium) 9.8100 mg/dL 8.0000-10.3000 Alkaline Phosphatase (test code = Alkaline 47.0000 42.00 00-141.0000 Phosphatase) ALT (SGPT) (test code = ALT (SGPT)) 13.0000 10.0000-47.0 000 AST (SGOT) (test code = AST (SGOT)) 17.0000 11.0000-37.0 000 Bilirubin, Total (test code = Bilirubin, 0.3000 mg/dL 0.0000- 1.6000 Total) Albumin (test code = Albumin) 4.2000 g/dL 3.5000-5.5000 Protein, Total (test code = Protein, 6.6000 g/dL 6.4000-8.10 00 Total) eGFR -Italian (test code = eGFR 163.0000 60.0000- 200.0000 -Italian) eGFR Ftd-Kmujees-Uuylrnyp (test code = 135.0000 60.0000-2 00.0000 eGFR Ney-Sclndhs-Zoljmpsp) [id number] 10:57:00 Test Item Value Reference Range Comments RBC (test code = RBC) 5.5100 3.7000-4.9000 WBC (test code = WBC) 6.0000 4.0000-10.0000 PLT (test code = PLT) 212.0000 140.0000-440.0000 MID (test code = MID) 0.5000 0.1000-1.1000 Neutrophils (test code = Neutrophils) 3.6000 1.5000-6.7 000 Lymphocytes (test code = Lymphocytes) 1.9000 1.2000-3.2 000 MCV (test code = MCV) 78.6000 fL 80.0000-94.0000 MPV (test code = MPV) 8.0000 fL 6.8000-10.6000 HGB (test code = HGB) 13.6000 g/dL 11.2000-18.0000 MCHC (test code = MCHC) 31.3000 g/dL 31.5000-36.0000 RDW (test code = RDW) 17.9000 11.0000-18.0000 HCT (test code = HCT) 43.3000 % 34.0000-44.0000 Neutrophils % (test code = Neutrophils %) 60.2000 % 48.900 0-69.9000 MID% (test code = MID%) 8.1000 % 1.2000-11.2000 Lymphocytes % (test code = Lymphocytes %) 31.7000 % 22.400 0-43.6000 MCH (test code = MCH) 24.7000 pg 27.0000-34.0000 [id number] 10:57:00 Test Item Value Reference Range Comments Glucose (test code = Glucose) 96.0000 mg/dL 70.0000-118.0000 BUN (test code = BUN) 21.0000 mg/dL 7.0000-22.0000 Bilirubin, Total (test code = Bilirubin, 0.3000 mg/dL 0.0000- 1.6000 Total) Creatinine (test code = Creatinine) 0.6000 mg/dL 0.5000-1.200 0 Calcium (test code = Calcium) 9.8100 mg/dL 8.0000-10.3000 Albumin (test code = Albumin) 4.2000 g/dL 3.5000-5.5000 Protein, Total (test code = Protein, 6.6000 g/dL 6.4000-8.10 00 Total) Alkaline Phosphatase (test code = Alkaline 47.0000 42.00 00-141.0000 Phosphatase) eGFR Uht-Kiaahoi-Swjzmonc (test code = 135.0000 60.0000-2 00.0000 eGFR Bgd-Xmdgicd-Hinjbwvd) Sodium (test code = Sodium) 141.0000 mmol/L 128.0000-145.0000 Cr Clearance (Est) (test code = Cr 109.7100 85.0000-125.0 000 Clearance (Est)) eGFR -Italian (test code = eGFR 163.0000 60.0000- 200.0000 -Italian) Potassium (test code = Potassium) 3.6000 mmol/L 3.6000-5.1000 CO2 (test code = CO2) 34.0000 mmol/L 18.0000-33.0000 Chloride (test code = Chloride) 105.0000 mmol/L 96.0000-108.0000 AST (SGOT) (test code = AST (SGOT)) 17.0000 11.0000-37.0 000 ALT (SGPT) (test code = ALT (SGPT)) 13.0000 10.0000-47.0 000 T4, [id number] 12:41:00 Test Item Value Reference Range Comments T4, Free (test code = T4, Free) 1.3200 ng/dL 0.8200-1.7700 TSH (test code = TSH) 1.0800 0.4500-4.5000 T3, Free (test code = T3, Free) 3.3000 pg/mL 2.0000-4.4000 T3, [id number] 12:41:00 Test Item Value Reference Range Comments T3, Free (test code = T3, Free) 3.3000 pg/mL 2.0000-4.4000 T4, Free (test code = T4, Free) 1.3200 ng/dL 0.8200-1.7700 TSH (test code = TSH) 1.0800 0.4500-4.5000 [id number] 11:28:00 Test Item Value Reference Range Comments PT (test code = PT) 21.9000 s 10.0000-14.0000 INR (test code = INR) 1.8000 0.0000-3.5000 Coumadin, Current [id number] 11:28:00 Test Item Value Reference Range Comments Coumadin, Current Dose (test code 05mg = Coumadin, Current Dose) Coumadin, New Dose (test code = pt will cut back on veggi Coumadin, New Dose) Return [id number] 11:28:00 Test Item Value Reference Range Comments Return Date (test code = Return Date) x [id number] 11:15:00 Test Item Value Reference Range Comments WBC (test code = WBC) 5.4000 4.0000-10.0000 Lymphocytes % (test code = Lymphocytes %) 27.3000 % 22.400 0-43.6000 MID% (test code = MID%) 7.0000 % 1.2000-11.2000 Neutrophils % (test code = Neutrophils %) 65.7000 % 48.900 0-69.9000 Lymphocytes (test code = Lymphocytes) 1.5000 1.2000-3.2 000 MID (test code = MID) 0.3000 0.1000-1.1000 Neutrophils (test code = Neutrophils) 3.6000 1.5000-6.7 000 RBC (test code = RBC) 5.4200 3.7000-4.9000 HGB (test code = HGB) 12.9000 g/dL 11.2000-18.0000 HCT (test code = HCT) 41.8000 % 34.0000-44.0000 MCV (test code = MCV) 77.1000 fL 80.0000-94.0000 MCH (test code = MCH) 23.8000 pg 27.0000-34.0000 MCHC (test code = MCHC) 30.9000 g/dL 31.5000-36.0000 RDW (test code = RDW) 18.3000 11.0000-18.0000 PLT (test code = PLT) 344.0000 140.0000-440.0000 MPV (test code = MPV) 7.4000 fL 6.8000-10.6000 [id number] 11:15:00 Test Item Value Reference Range Comments Creatinine (test code = Creatinine) 0.6000 mg/dL 0.5000-1.200 0 Cr Clearance (Est) (test code = Cr 104.2700 85.0000-125.0 000 Clearance (Est)) Glucose (test code = Glucose) 87.0000 mg/dL 70.0000-118.0000 BUN (test code = BUN) 21.0000 mg/dL 7.0000-22.0000 Sodium (test code = Sodium) 141.0000 mmol/L 128.0000-145.0000 Potassium (test code = Potassium) 3.6000 mmol/L 3.6000-5.1000 Chloride (test code = Chloride) 107.0000 mmol/L 96.0000-108.0000 CO2 (test code = CO2) 35.0000 mmol/L 18.0000-33.0000 Calcium (test code = Calcium) 9.2300 mg/dL 8.0000-10.3000 Alkaline Phosphatase (test code = Alkaline 48.0000 42.00 00-141.0000 Phosphatase) ALT (SGPT) (test code = ALT (SGPT)) 11.0000 10.0000-47.0 000 AST (SGOT) (test code = AST (SGOT)) 14.0000 11.0000-37.0 000 Bilirubin, Total (test code = Bilirubin, 0.3000 mg/dL 0.0000- 1.6000 Total) Albumin (test code = Albumin) 4.0000 g/dL 3.5000-5.5000 Protein, Total (test code = Protein, 6.3000 g/dL 6.4000-8.10 00 Total) eGFR -Italian (test code = eGFR 163.0000 60.0000- 200.0000 -Italian) eGFR Lbp-Lmclhto-Qitcwzsd (test code = 135.0000 60.0000-2 00.0000 eGFR Uwk-Jmrztqh-Vnwljagz) Magnesium (test code = Magnesium) 1.7000 mg/dL 1.6000-2.3000 [id number] 11:15:00 Test Item Value Reference Range Comments RBC (test code = RBC) 5.4200 3.7000-4.9000 MID (test code = MID) 0.3000 0.1000-1.1000 PLT (test code = PLT) 344.0000 140.0000-440.0000 WBC (test code = WBC) 5.4000 4.0000-10.0000 Lymphocytes (test code = Lymphocytes) 1.5000 1.2000-3.2 000 Neutrophils (test code = Neutrophils) 3.6000 1.5000-6.7 000 MCV (test code = MCV) 77.1000 fL 80.0000-94.0000 MPV (test code = MPV) 7.4000 fL 6.8000-10.6000 HGB (test code = HGB) 12.9000 g/dL 11.2000-18.0000 MCHC (test code = MCHC) 30.9000 g/dL 31.5000-36.0000 RDW (test code = RDW) 18.3000 11.0000-18.0000 Lymphocytes % (test code = Lymphocytes %) 27.3000 % 22.400 0-43.6000 MID% (test code = MID%) 7.0000 % 1.2000-11.2000 Neutrophils % (test code = Neutrophils %) 65.7000 % 48.900 0-69.9000 HCT (test code = HCT) 41.8000 % 34.0000-44.0000 MCH (test code = MCH) 23.8000 pg 27.0000-34.0000 [id number] 11:15:00 Test Item Value Reference Range Comments BUN (test code = BUN) 21.0000 mg/dL 7.0000-22.0000 Glucose (test code = Glucose) 87.0000 mg/dL 70.0000-118.0000 Magnesium (test code = Magnesium) 1.7000 mg/dL 1.6000-2.3000 Protein, Total (test code = Protein, 6.3000 g/dL 6.4000-8.10 00 Total) Albumin (test code = Albumin) 4.0000 g/dL 3.5000-5.5000 Calcium (test code = Calcium) 9.2300 mg/dL 8.0000-10.3000 Creatinine (test code = Creatinine) 0.6000 mg/dL 0.5000-1.200 0 Bilirubin, Total (test code = Bilirubin, 0.3000 mg/dL 0.0000- 1.6000 Total) Alkaline Phosphatase (test code = Alkaline 48.0000 42.00 00-141.0000 Phosphatase) ALT (SGPT) (test code = ALT (SGPT)) 11.0000 10.0000-47.0 000 AST (SGOT) (test code = AST (SGOT)) 14.0000 11.0000-37.0 000 Chloride (test code = Chloride) 107.0000 mmol/L 96.0000-108.0000 CO2 (test code = CO2) 35.0000 mmol/L 18.0000-33.0000 Potassium (test code = Potassium) 3.6000 mmol/L 3.6000-5.1000 Sodium (test code = Sodium) 141.0000 mmol/L 128.0000-145.0000 eGFR Nou-Exzyifh-Sgssiyti (test code = 135.0000 60.0000-2 00.0000 eGFR Qqt-Ldtyopz-Mwqtcpve) eGFR -Italian (test code = eGFR 163.0000 60.0000- 200.0000 -Italian) Cr Clearance (Est) (test code = Cr 104.2700 85.0000-125.0 000 Clearance (Est)) T4, [id number] 13:02:00 Test Item Value Reference Range Comments T4, Free (test code = T4, Free) 1.2100 ng/dL 0.8200-1.7700 TSH (test code = TSH) 1.2500 0.4500-4.5000 T3, Free (test code = T3, Free) 2.8000 pg/mL 2.0000-4.4000 T3, [id number] 13:02:00 Test Item Value Reference Range Comments T3, Free (test code = T3, Free) 2.8000 pg/mL 2.0000-4.4000 T4, Free (test code = T4, Free) 1.2100 ng/dL 0.8200-1.7700 TSH (test code = TSH) 1.2500 0.4500-4.5000 [id number] 12:13:00 Test Item Value Reference Range Comments WBC (test code = WBC) 5.6000 4.0000-10.0000 Lymphocytes % (test code = Lymphocytes %) 26.3000 % 22.400 0-43.6000 MID% (test code = MID%) 5.7000 % 1.2000-11.2000 Neutrophils % (test code = Neutrophils %) 68.0000 % 48.900 0-69.9000 Lymphocytes (test code = Lymphocytes) 1.4000 1.2000-3.2 000 MID (test code = MID) 0.4000 0.1000-1.1000 Neutrophils (test code = Neutrophils) 3.8000 1.5000-6.7 000 RBC (test code = RBC) 5.6100 3.7000-4.9000 HGB (test code = HGB) 12.4000 g/dL 11.2000-18.0000 HCT (test code = HCT) 42.5000 % 34.0000-44.0000 MCV (test code = MCV) 75.6000 fL 80.0000-94.0000 MCH (test code = MCH) 22.2000 pg 27.0000-34.0000 MCHC (test code = MCHC) 29.3000 g/dL 31.5000-36.0000 RDW (test code = RDW) 19.1000 11.0000-18.0000 PLT (test code = PLT) 322.0000 140.0000-440.0000 MPV (test code = MPV) 7.7000 fL 6.8000-10.6000 [id number] 12:13:00 Test Item Value Reference Range Comments Creatinine (test code = Creatinine) 0.6000 mg/dL 0.5000-1.200 0 Cr Clearance (Est) (test code = Cr 101.9400 85.0000-125.0 000 Clearance (Est)) Glucose (test code = Glucose) 112.0000 mg/dL 70.0000-118.0000 BUN (test code = BUN) 19.0000 mg/dL 7.0000-22.0000 Sodium (test code = Sodium) 139.0000 mmol/L 128.0000-145.0000 Potassium (test code = Potassium) 3.9000 mmol/L 3.6000-5.1000 Chloride (test code = Chloride) 103.0000 mmol/L 96.0000-108.0000 CO2 (test code = CO2) 38.0000 mmol/L 18.0000-33.0000 Calcium (test code = Calcium) 9.5600 mg/dL 8.0000-10.3000 Alkaline Phosphatase (test code = Alkaline 49.0000 42.00 00-141.0000 Phosphatase) ALT (SGPT) (test code = ALT (SGPT)) 7.0000 10.0000-47.0 000 AST (SGOT) (test code = AST (SGOT)) 16.0000 11.0000-37.0 000 Bilirubin, Total (test code = Bilirubin, 0.4000 mg/dL 0.0000- 1.6000 Total) Albumin (test code = Albumin) 4.3000 g/dL 3.5000-5.5000 Protein, Total (test code = Protein, 6.6000 g/dL 6.4000-8.10 00 Total) eGFR -Italian (test code = eGFR 163.0000 60.0000- 200.0000 -Italian) eGFR Abu-Uyimoqc-Rvwkhgdb (test code = 135.0000 60.0000-2 00.0000 eGFR Xha-Vdiuoid-Fgpxqauw) Magnesium (test code = Magnesium) 1.9000 mg/dL 1.6000-2.3000 [id number] 12:13:00 Test Item Value Reference Range Comments RBC (test code = RBC) 5.6100 3.7000-4.9000 WBC (test code = WBC) 5.6000 4.0000-10.0000 MID (test code = MID) 0.4000 0.1000-1.1000 PLT (test code = PLT) 322.0000 140.0000-440.0000 Neutrophils (test code = Neutrophils) 3.8000 1.5000-6.7 000 Lymphocytes (test code = Lymphocytes) 1.4000 1.2000-3.2 000 HGB (test code = HGB) 12.4000 g/dL 11.2000-18.0000 MCHC (test code = MCHC) 29.3000 g/dL 31.5000-36.0000 MCV (test code = MCV) 75.6000 fL 80.0000-94.0000 MPV (test code = MPV) 7.7000 fL 6.8000-10.6000 MCH (test code = MCH) 22.2000 pg 27.0000-34.0000 HCT (test code = HCT) 42.5000 % 34.0000-44.0000 Neutrophils % (test code = Neutrophils %) 68.0000 % 48.900 0-69.9000 MID% (test code = MID%) 5.7000 % 1.2000-11.2000 Lymphocytes % (test code = Lymphocytes %) 26.3000 % 22.400 0-43.6000 RDW (test code = RDW) 19.1000 11.0000-18.0000 [id number] 12:13:00 Test Item Value Reference Range Comments Magnesium (test code = Magnesium) 1.9000 mg/dL 1.6000-2.3000 Glucose (test code = Glucose) 112.0000 mg/dL 70.0000-118.0000 BUN (test code = BUN) 19.0000 mg/dL 7.0000-22.0000 Bilirubin, Total (test code = Bilirubin, 0.4000 mg/dL 0.0000- 1.6000 Total) Calcium (test code = Calcium) 9.5600 mg/dL 8.0000-10.3000 Creatinine (test code = Creatinine) 0.6000 mg/dL 0.5000-1.200 0 Albumin (test code = Albumin) 4.3000 g/dL 3.5000-5.5000 Protein, Total (test code = Protein, 6.6000 g/dL 6.4000-8.10 00 Total) Cr Clearance (Est) (test code = Cr 101.9400 85.0000-125.0 000 Clearance (Est)) eGFR -Italian (test code = eGFR 163.0000 60.0000- 200.0000 -Italian) eGFR Ecy-Ajtjlxv-Cgvksgyz (test code = 135.0000 60.0000-2 00.0000 eGFR Zvw-Hhaavdc-Dhffslue) Sodium (test code = Sodium) 139.0000 mmol/L 128.0000-145.0000 Potassium (test code = Potassium) 3.9000 mmol/L 3.6000-5.1000 CO2 (test code = CO2) 38.0000 mmol/L 18.0000-33.0000 Chloride (test code = Chloride) 103.0000 mmol/L 96.0000-108.0000 AST (SGOT) (test code = AST (SGOT)) 16.0000 11.0000-37.0 000 ALT (SGPT) (test code = ALT (SGPT)) 7.0000 10.0000-47.0 000 Alkaline Phosphatase (test code = Alkaline 49.0000 42.00 00-141.0000 Phosphatase) Iron, [id number] 13:22:00 Test Item Value Reference Range Comments Iron, Total (test code = Iron, Total) 34.0000 38.0000-16 9.0000 TIBC (test code = TIBC) 391.0000 250.0000-450.0000 UIBC (test code = UIBC) 357.0000 111.0000-343.0000 % Iron Saturation (test code = % Iron 9.0000 % 15.0000-55 .0000 Saturation) Ferritin (test code = Ferritin) 447.0000 ng/mL 30.0000-400.0000 % Iron [id number] 13:22:00 Test Item Value Reference Range Comments % Iron Saturation (test code = % Iron 9.0000 % 15.0000-55 .0000 Saturation) Ferritin (test code = Ferritin) 447.0000 ng/mL 30.0000-400.0000 UIBC (test code = UIBC) 357.0000 111.0000-343.0000 Iron, Total (test code = Iron, Total) 34.0000 38.0000-16 9.0000 TIBC (test code = TIBC) 391.0000 250.0000-450.0000 [id number] 11:28:00 Test Item Value Reference Range Comments PT (test code = PT) 30.2000 s 10.0000-14.0000 INR (test code = INR) 2.5000 0.0000-3.5000 Coumadin, Current [id number] 11:28:00 Test Item Value Reference Range Comments Coumadin, Current Dose (test code = 2.5mg Coumadin, Current Dose) Coumadin, New Dose (test code = Continue same dosage Coumadin, New Dose) Return [id number] 11:28:00 Test Item Value Reference Range Comments Return Date (test code = Return Date) 2 weeks Coumadin, New [id number] 11:28:00 Test Item Value Reference Range Comments Coumadin, New Dose (test code = Continue same dosage Coumadin, New Dose) Coumadin, Current Dose (test code = 2.5mg Coumadin, Current Dose) [id number] 11:16:00 Test Item Value Reference Range Comments Creatinine (test code = Creatinine) 0.5000 mg/dL 0.5000-1.200 0 Cr Clearance (Est) (test code = Cr 115.6200 85.0000-125.0 000 Clearance (Est)) Glucose (test code = Glucose) 104.0000 mg/dL 70.0000-118.0000 BUN (test code = BUN) 11.0000 mg/dL 7.0000-22.0000 Sodium (test code = Sodium) 142.0000 mmol/L 128.0000-145.0000 Potassium (test code = Potassium) 3.3000 mmol/L 3.6000-5.1000 Chloride (test code = Chloride) 103.0000 mmol/L 96.0000-108.0000 CO2 (test code = CO2) 30.0000 mmol/L 18.0000-33.0000 Calcium (test code = Calcium) 9.4900 mg/dL 8.0000-10.3000 Alkaline Phosphatase (test code = Alkaline 66.0000 42.00 00-141.0000 Phosphatase) ALT (SGPT) (test code = ALT (SGPT)) 8.0000 10.0000-47.0 000 AST (SGOT) (test code = AST (SGOT)) 12.0000 11.0000-37.0 000 Bilirubin, Total (test code = Bilirubin, 0.3000 mg/dL 0.0000- 1.6000 Total) Albumin (test code = Albumin) 4.0000 g/dL 3.5000-5.5000 Protein, Total (test code = Protein, 6.3000 g/dL 6.4000-8.10 00 Total) eGFR -Italian (test code = eGFR 201.0000 60.0000- 200.0000 -Italian) eGFR Mvz-Likajdr-Wakxeckj (test code = 166.0000 60.0000-2 00.0000 eGFR Uwr-Hpltafd-Pybkoysc) Magnesium (test code = Magnesium) 1.5000 mg/dL 1.6000-2.3000 Alkaline [id number] 11:16:00 Test Item Value Reference Range Comments Alkaline Phosphatase (test code = Alkaline 66.0000 42.00 00-141.0000 Phosphatase) Cr Clearance (Est) (test code = Cr 115.6200 85.0000-125.0 000 Clearance (Est)) eGFR -Italian (test code = eGFR 201.0000 60.0000- 200.0000 -Italian) eGFR Gfw-Mbpuxuw-Vwgrssle (test code = 166.0000 60.0000-2 00.0000 eGFR Fbu-Jtgghws-Rquqmqpc) Sodium (test code = Sodium) 142.0000 mmol/L 128.0000-145.0000 ALT (SGPT) (test code = ALT (SGPT)) 8.0000 10.0000-47.0 000 AST (SGOT) (test code = AST (SGOT)) 12.0000 11.0000-37.0 000 Chloride (test code = Chloride) 103.0000 mmol/L 96.0000-108.0000 CO2 (test code = CO2) 30.0000 mmol/L 18.0000-33.0000 Potassium (test code = Potassium) 3.3000 mmol/L 3.6000-5.1000 Protein, Total (test code = Protein, 6.3000 g/dL 6.4000-8.10 00 Total) Albumin (test code = Albumin) 4.0000 g/dL 3.5000-5.5000 Calcium (test code = Calcium) 9.4900 mg/dL 8.0000-10.3000 Creatinine (test code = Creatinine) 0.5000 mg/dL 0.5000-1.200 0 BUN (test code = BUN) 11.0000 mg/dL 7.0000-22.0000 Bilirubin, Total (test code = Bilirubin, 0.3000 mg/dL 0.0000- 1.6000 Total) Glucose (test code = Glucose) 104.0000 mg/dL 70.0000-118.0000 Magnesium (test code = Magnesium) 1.5000 mg/dL 1.6000-2.3000 [id number] 11:15:00 Test Item Value Reference Range Comments WBC (test code = WBC) 8.9000 4.0000-10.0000 Lymphocytes % (test code = Lymphocytes %) 14.1000 % 22.400 0-43.6000 MID% (test code = MID%) 5.0000 % 1.2000-11.1999 Neutrophils % (test code = Neutrophils %) 80.9000 % 48.900 0-69.9000 Lymphocytes (test code = Lymphocytes) 1.1999 1.2000-3.2 000 MID (test code = MID) 0.5000 0.1000-1.1000 Neutrophils (test code = Neutrophils) 1.5000-6.7 000 RBC (test code = RBC) 5.2700 3.7000-4.9000 HGB (test code = HGB) 11.2000 g/dL 11.1999-18.0000 HCT (test code = HCT) 37.6000 % 34.0000-44.0000 MCV (test code = MCV) 71.5000 fL 80.0000-94.0000 MCH (test code = MCH) .1999 pg 27.0000-34.0000 MCHC (test code = MCHC) 29.7000 g/dL 31.5000-36.0000 RDW (test code = RDW) 17.4000 11.0000-18.0000 PLT (test code = PLT) 398.0000 140.0000-440.0000 MPV (test code = MPV) 8.1000 fL 6.8000-10.6000 [id number] 11:15:00 Test Item Value Reference Range Comments RBC (test code = RBC) 5.2700 3.7000-4.9000 PLT (test code = PLT) 398.0000 140.0000-440.0000 MID (test code = MID) 0.5000 0.1000-1.1000 WBC (test code = WBC) 8.9000 4.0000-10.0000 Lymphocytes (test code = Lymphocytes) .1999 1.2000-3.2 000 Neutrophils (test code = Neutrophils) .1999 1.5000-6.7 000 MCH (test code = MCH) .1999 pg 27.0000-34.0000 MPV (test code = MPV) 8.1000 fL 6.8000-10.6000 MCV (test code = MCV) 71.5000 fL 80.0000-94.0000 MCHC (test code = MCHC) 29.7000 g/dL 31.5000-36.0000 HGB (test code = HGB) 11.2000 g/dL 11.2000-18.0000 HCT (test code = HCT) 37.6000 % 34.0000-44.0000 Neutrophils % (test code = Neutrophils %) 80.9000 % 48.900 0-69.9000 Lymphocytes % (test code = Lymphocytes %) 14.1000 % 22.400 0-43.6000 MID% (test code = MID%) 5.0000 % 1.2000-11.1999 RDW (test code = RDW) 17.4000 11.0000-18.0000 Iron, [id number] 14:12:00 Test Item Value Reference Range Comments Iron, Total (test code = Iron, Total) 16.0000 38.0000-16 9.0000 TIBC (test code = TIBC) 286.0000 250.0000-450.0000 UIBC (test code = UIBC) 270.0000 111.0000-343.0000 % Iron Saturation (test code = % Iron 6.0000 % 15.0000-55 .0000 Saturation) Ferritin (test code = Ferritin) 754.0000 ng/mL 30.0000-400.0000 % Iron [id number] 14:12:00 Test Item Value Reference Range Comments % Iron Saturation (test code = % Iron 6.0000 % 15.0000-55 .0000 Saturation) Ferritin (test code = Ferritin) 754.0000 ng/mL 30.0000-400.0000 UIBC (test code = UIBC) 270.0000 111.0000-343.0000 TIBC (test code = TIBC) 286.0000 250.0000-450.0000 Iron, Total (test code = Iron, Total) 16.0000 38.0000-16 9.0000 [id number] 11:27:00 Test Item Value Reference Range Comments PT (test code = PT) 30.9000 s 10.0000-14.0000 INR (test code = INR) 2.5000 0.0000-3.5000 Coumadin, Current [id number] 11:27:00 Test Item Value Reference Range Comments Coumadin, Current Dose (test code = Coumadin, 2.5 mg qd Current Dose) Coumadin, New Dose (test code = Coumadin, New x Dose) Return [id number] 11:27:00 Test Item Value Reference Range Comments Return Date (test code = Return Date) x [id number] 11:16:00 Test Item Value Reference Range Comments Creatinine (test code = Creatinine) 0.6000 mg/dL 0.5000-1.200 0 Cr Clearance (Est) (test code = Cr 92.1500 85.0000-125.0 000 Clearance (Est)) Glucose (test code = Glucose) 189.0000 mg/dL 70.0000-118.0000 BUN (test code = BUN) 15.0000 mg/dL 7.0000-22.0000 Sodium (test code = Sodium) 141.0000 mmol/L 128.0000-145.0000 Potassium (test code = Potassium) 3.5000 mmol/L 3.6000-5.1000 Chloride (test code = Chloride) 101.0000 mmol/L 96.0000-108.0000 CO2 (test code = CO2) 28.0000 mmol/L 18.0000-33.0000 Calcium (test code = Calcium) 8.4200 mg/dL 8.0000-10.3000 Alkaline Phosphatase (test code = Alkaline 102.0000 42.00 00-141.0000 Phosphatase) ALT (SGPT) (test code = ALT (SGPT)) 26.0000 10.0000-47.0 000 AST (SGOT) (test code = AST (SGOT)) 19.0000 11.0000-37.0 000 Bilirubin, Total (test code = Bilirubin, 0.3000 mg/dL 0.0000- 1.6000 Total) Albumin (test code = Albumin) 3.6000 g/dL 3.5000-5.5000 Protein, Total (test code = Protein, 6.8000 g/dL 6.4000-8.10 00 Total) eGFR -Italian (test code = eGFR 163.0000 60.0000- 200.0000 -Italian) eGFR Scr-Iglsddz-Fbmnaebg (test code = 135.0000 60.0000-2 00.0000 eGFR Shr-Gcqhzjt-Xyciqvxf) [id number] 11:16:00 Test Item Value Reference Range Comments Glucose (test code = Glucose) 189.0000 mg/dL 70.0000-118.0000 BUN (test code = BUN) 15.0000 mg/dL 7.0000-22.0000 Creatinine (test code = Creatinine) 0.6000 mg/dL 0.5000-1.200 0 Bilirubin, Total (test code = Bilirubin, 0.3000 mg/dL 0.0000- 1.6000 Total) Calcium (test code = Calcium) 8.4200 mg/dL 8.0000-10.3000 Albumin (test code = Albumin) 3.6000 g/dL 3.5000-5.5000 Protein, Total (test code = Protein, 6.8000 g/dL 6.4000-8.10 00 Total) Alkaline Phosphatase (test code = Alkaline 102.0000 42.00 00-141.0000 Phosphatase) Potassium (test code = Potassium) 3.5000 mmol/L 3.6000-5.1000 CO2 (test code = CO2) 28.0000 mmol/L 18.0000-33.0000 Chloride (test code = Chloride) 101.0000 mmol/L 96.0000-108.0000 AST (SGOT) (test code = AST (SGOT)) 19.0000 11.0000-37.0 000 ALT (SGPT) (test code = ALT (SGPT)) 26.0000 10.0000-47.0 000 Cr Clearance (Est) (test code = Cr 92.1500 85.0000-125.0 000 Clearance (Est)) eGFR -Italian (test code = eGFR 163.0000 60.0000- 200.0000 -Italian) Sodium (test code = Sodium) 141.0000 mmol/L 128.0000-145.0000 eGFR Fhk-Ferftfq-Zvhaxfie (test code = 135.0000 60.0000-2 00.0000 eGFR Kpi-Nzllplw-Aijkepcd) [id number] 11:15:00 Test Item Value Reference Range Comments WBC (test code = WBC) 13.1000 4.0000-10.0000 Lymphocytes % (test code = Lymphocytes %) 11.5000 % 22.400 0-43.6000 MID% (test code = MID%) 4.0000 % 1.2000-11.2000 Neutrophils % (test code = Neutrophils %) 84.5000 % 48.900 0-69.9000 Lymphocytes (test code = Lymphocytes) 1.5000 1.2000-3.2 000 MID (test code = MID) 0.5000 0.1000-1.1000 Neutrophils (test code = Neutrophils) 11.1000 1.5000-6.7 000 RBC (test code = RBC) 4.7100 3.7000-4.9000 HGB (test code = HGB) 10.2000 g/dL 11.2000-18.0000 HCT (test code = HCT) 33.2000 % 34.0000-44.0000 MCV (test code = MCV) 70.4000 fL 80.0000-94.0000 MCH (test code = MCH) 21.6000 pg 27.0000-34.0000 MCHC (test code = MCHC) 30.7000 g/dL 31.5000-36.0000 RDW (test code = RDW) 15 11.0000-18.0000 PLT (test code = PLT) 656.0000 140.0000-440.0000 MPV (test code = MPV) 7.9000 fL 6.8000-10.6000 [id number] 11:15:00 Test Item Value Reference Range Comments RDW (test code = RDW) 11.0000-18.0000 HCT (test code = HCT) 33.2000 % 34.0000-44.0000 Neutrophils % (test code = Neutrophils %) 84.5000 % 48.900 0-69.9000 MID% (test code = MID%) 4.0000 % 1.2000-11.2000 Lymphocytes % (test code = Lymphocytes %) 11.5000 % 22.400 0-43.6000 HGB (test code = HGB) 10.2000 g/dL 11.2000-18.0000 MCHC (test code = MCHC) 30.7000 g/dL 31.5000-36.0000 MCV (test code = MCV) 70.4000 fL 80.0000-94.0000 MPV (test code = MPV) 7.9000 fL 6.8000-10.6000 MCH (test code = MCH) 21.6000 pg 27.0000-34.0000 Neutrophils (test code = Neutrophils) 11.1000 1.5000-6.7 000 Lymphocytes (test code = Lymphocytes) 1.5000 1.2000-3.2 000 WBC (test code = WBC) 13.1000 4.0000-10.0000 MID (test code = MID) 0.5000 0.1000-1.1000 PLT (test code = PLT) 656.0000 140.0000-440.0000 RBC (test code = RBC) 4.7100 3.7000-4.9000 [id number] 11:31:00 Test Item Value Reference Range Comments WBC (test code = WBC) 16.1000 4.0000-10.0000 Lymphocytes % (test code = Lymphocytes %) 9.3000 % 22.400 0-43.6000 MID% (test code = MID%) 2.5000 % 1.2000-11.2000 Neutrophils % (test code = Neutrophils %) 88.2000 % 48.900 0-69.9000 Lymphocytes (test code = Lymphocytes) 1.5000 1.2000-3.2 000 MID (test code = MID) 0.4000 0.1000-1.1000 Neutrophils (test code = Neutrophils) 14.2000 1.5000-6.7 000 RBC (test code = RBC) 4.8600 3.7000-4.9000 HGB (test code = HGB) 10.9000 g/dL 11.2000-18.0000 HCT (test code = HCT) 34.1000 % 34.0000-44.0000 MCV (test code = MCV) 70.2000 fL 80.0000-94.0000 MCH (test code = MCH) 22.4000 pg 27.0000-34.0000 MCHC (test code = MCHC) 31.9000 g/dL 31.5000-36.0000 RDW (test code = RDW) 15.4000 11.0000-18.0000 PLT (test code = PLT) 583.0000 140.0000-440.0000 MPV (test code = MPV) 8.2000 fL 6.8000-10.6000 [id number] 11:31:00 Test Item Value Reference Range Comments Creatinine (test code = Creatinine) 0.6000 mg/dL 0.5000-1.200 0 Cr Clearance (Est) (test code = Cr 92.9300 85.0000-125.0 000 Clearance (Est)) Glucose (test code = Glucose) 162.0000 mg/dL 70.0000-118.0000 BUN (test code = BUN) 10.0000 mg/dL 7.0000-22.0000 Sodium (test code = Sodium) 137.0000 mmol/L 128.0000-145.0000 Potassium (test code = Potassium) 3.8000 mmol/L 3.6000-5.1000 Chloride (test code = Chloride) 96.0000 mmol/L 96.0000-108.0000 CO2 (test code = CO2) 30.0000 mmol/L 18.0000-33.0000 Calcium (test code = Calcium) 9.3800 mg/dL 8.0000-10.3000 Alkaline Phosphatase (test code = Alkaline 119.0000 42.00 00-141.0000 Phosphatase) ALT (SGPT) (test code = ALT (SGPT)) 42.0000 10.0000-47.0 000 AST (SGOT) (test code = AST (SGOT)) 49.0000 11.0000-37.0 000 Bilirubin, Total (test code = Bilirubin, 0.6000 mg/dL 0.0000- 1.6000 Total) Albumin (test code = Albumin) 3.6000 g/dL 3.5000-5.5000 Protein, Total (test code = Protein, 6.5000 g/dL 6.4000-8.10 00 Total) eGFR -Italian (test code = eGFR 163.0000 60.0000- 200.0000 -Italian) eGFR Ywv-Ypgtwai-Suidyvfa (test code = 135.0000 60.0000-2 00.0000 eGFR Qpd-Imvylce-Uaqyvxcd) Magnesium (test code = Magnesium) 1.6000 mg/dL 1.6000-2.3000 [id number] 11:31:00 Test Item Value Reference Range Comments RBC (test code = RBC) 4.8600 3.7000-4.9000 MID (test code = MID) 0.4000 0.1000-1.1000 WBC (test code = WBC) 16.1000 4.0000-10.0000 PLT (test code = PLT) 583.0000 140.0000-440.0000 Lymphocytes (test code = Lymphocytes) 1.5000 1.2000-3.2 000 Neutrophils (test code = Neutrophils) 14.2000 1.5000-6.7 000 MCH (test code = MCH) 22.4000 pg 27.0000-34.0000 MPV (test code = MPV) 8.2000 fL 6.8000-10.6000 MCV (test code = MCV) 70.2000 fL 80.0000-94.0000 MCHC (test code = MCHC) 31.9000 g/dL 31.5000-36.0000 HGB (test code = HGB) 10.9000 g/dL 11.2000-18.0000 Lymphocytes % (test code = Lymphocytes %) 9.3000 % 22.400 0-43.6000 MID% (test code = MID%) 2.5000 % 1.2000-11.2000 Neutrophils % (test code = Neutrophils %) 88.2000 % 48.900 0-69.9000 HCT (test code = HCT) 34.1000 % 34.0000-44.0000 RDW (test code = RDW) 15.4000 11.0000-18.0000 [id number] 11:31:00 Test Item Value Reference Range Comments BUN (test code = BUN) 10.0000 mg/dL 7.0000-22.0000 Magnesium (test code = Magnesium) 1.6000 mg/dL 1.6000-2.3000 Glucose (test code = Glucose) 162.0000 mg/dL 70.0000-118.0000 Protein, Total (test code = Protein, 6.5000 g/dL 6.4000-8.10 00 Total) Albumin (test code = Albumin) 3.6000 g/dL 3.5000-5.5000 Calcium (test code = Calcium) 9.3800 mg/dL 8.0000-10.3000 Bilirubin, Total (test code = Bilirubin, 0.6000 mg/dL 0.0000- 1.6000 Total) Creatinine (test code = Creatinine) 0.6000 mg/dL 0.5000-1.200 0 Alkaline Phosphatase (test code = Alkaline 119.0000 42.00 00-141.0000 Phosphatase) Sodium (test code = Sodium) 137.0000 mmol/L 128.0000-145.0000 eGFR Nhn-Pgzqjkz-Jhoktuwb (test code = 135.0000 60.0000-2 00.0000 eGFR Qkl-Tzypqze-Cohbbgdv) eGFR -Italian (test code = eGFR 163.0000 60.0000- 200.0000 -Italian) Cr Clearance (Est) (test code = Cr 92.9300 85.0000-125.0 000 Clearance (Est)) ALT (SGPT) (test code = ALT (SGPT)) 42.0000 10.0000-47.0 000 AST (SGOT) (test code = AST (SGOT)) 49.0000 11.0000-37.0 000 Chloride (test code = Chloride) 96.0000 mmol/L 96.0000-108.0000 CO2 (test code = CO2) 30.0000 mmol/L 18.0000-33.0000 Potassium (test code = Potassium) 3.8000 mmol/L 3.6000-5.1000 [id number] 13:44:00 Test Item Value Reference Range Comments WBC (test code = WBC) 19.2000 4.0000-10.0000 Lymphocytes % (test code = Lymphocytes %) 17.0000 % 22.400 0-43.6000 MID% (test code = MID%) 4.9000 % 1.2000-11.1999 Neutrophils % (test code = Neutrophils %) 78.1000 % 48.900 0-69.9000 Lymphocytes (test code = Lymphocytes) 3.2000 1.2000-3.2 000 MID (test code = MID) 1.0000 0.1000-1.1000 Neutrophils (test code = Neutrophils) 15.0000 1.5000-6.7 000 RBC (test code = RBC) 4.6800 3.7000-4.9000 HGB (test code = HGB) 10.4000 g/dL 11.2000-18.0000 HCT (test code = HCT) 33.4000 % 34.0000-44.0000 MCV (test code = MCV) 71.4000 fL 80.0000-94.0000 MCH (test code = MCH) 22.3000 pg 27.0000-34.0000 MCHC (test code = MCHC) 31.2000 g/dL 31.5000-36.0000 RDW (test code = RDW) 14.8000 11.0000-18.0000 PLT (test code = PLT) 297.0000 140.0000-440.0000 MPV (test code = MPV) 9.0000 fL 6.8000-10.6000 [id number] 13:44:00 Test Item Value Reference Range Comments RDW (test code = RDW) 14.8000 11.0000-18.0000 HCT (test code = HCT) 33.4000 % 34.0000-44.0000 Neutrophils % (test code = Neutrophils %) 78.1000 % 48.900 0-69.9000 MID% (test code = MID%) 4.9000 % 1.1999-11 Lymphocytes % (test code = Lymphocytes %) 17.0000 % 22.400 0-43.6000 HGB (test code = HGB) 10.4000 g/dL 11.2000-18.0000 MCHC (test code = MCHC) 31.2000 g/dL 31.5000-36.0000 MCV (test code = MCV) 71.4000 fL 80.0000-94.0000 MPV (test code = MPV) 9.0000 fL 6.8000-10.6000 MCH (test code = MCH) 22.3000 pg 27.0000-34.0000 Neutrophils (test code = Neutrophils) 15.0000 1.5000-6.7 000 Lymphocytes (test code = Lymphocytes) 3.2000 1.2000-3.2 000 WBC (test code = WBC) 19.2000 4.0000-10.0000 MID (test code = MID) 1.0000 0.1000-1.1000 PLT (test code = PLT) 297.0000 140.0000-440.0000 RBC (test code = RBC) 4.6800 3.7000-4.9000 [id number] 13:43:00 Test Item Value Reference Range Comments PT (test code = PT) 21.5000 s 10.0000-14.0000 INR (test code = INR) 1.8000 0.0000-3.5000 Coumadin, Current [id number] 13:43:00 Test Item Value Reference Range Comments Coumadin, Current Dose (test code = Coumadin, 2.5mg everyday Current Dose) Coumadin, New Dose (test code = Coumadin, New x Dose) Return [id number] 13:43:00 Test Item Value Reference Range Comments Return Date (test code = Return Date) x Coumadin, New [id number] 13:43:00 Test Item Value Reference Range Comments Coumadin, New Dose (test code = Coumadin, New x Dose) Coumadin, Current Dose (test code = Coumadin, 2.5mg everyday Current Dose) [id number] 13:43:00 Test Item Value Reference Range Comments INR (test code = INR) 1.8000 0.0000-3.5000 PT (test code = PT) 21.5000 s 10.0000-14.0000 [id number] 12:44:00 Test Item Value Reference Range Comments WBC (test code = WBC) 15.7000 4.0000-10.0000 Lymphocytes % (test code = Lymphocytes %) 14.4000 % 22.400 0-43.6000 MID% (test code = MID%) 4.6000 % 1.2000-11.2000 Neutrophils % (test code = Neutrophils %) 81.0000 % 48.900 0-69.9000 Lymphocytes (test code = Lymphocytes) 2.2000 1.2000-3.2 000 MID (test code = MID) 0.8000 0.1000-1.1000 Neutrophils (test code = Neutrophils) 12.7000 1.5000-6.7 000 RBC (test code = RBC) 4.6400 3.7000-4.9000 HGB (test code = HGB) 10.3000 g/dL 11.2000-18.0000 HCT (test code = HCT) 33.8000 % 34.0000-44.0000 MCV (test code = MCV) 72.9000 fL 80.0000-94.0000 MCH (test code = MCH) 22.3000 pg 27.0000-34.0000 MCHC (test code = MCHC) 30.6000 g/dL 31.5000-36.0000 RDW (test code = RDW) 15.3000 11.0000-18.0000 PLT (test code = PLT) 347.0000 140.0000-440.0000 MPV (test code = MPV) 8.8000 fL 6.8000-10.6000 PT (test code = PT) 25.8000 s 10.0000-14.0000 INR (test code = INR) 2.2000 0.0000-3.5000 Coumadin, Current [id number] 12:44:00 Test Item Value Reference Range Comments Coumadin, Current Dose (test code = Coumadin, Current x Dose) Coumadin, New Dose (test code = Coumadin, New Dose) x Return [id number] 12:44:00 Test Item Value Reference Range Comments Return Date (test code = Return Date) x T4, [id number] 14:21:00 Test Item Value Reference Range Comments T4, Free (test code = T4, Free) 1.4100 ng/dL 0.8200-1.7700 TSH (test code = TSH) 0.8920 0.4500-4.5000 T3, Free (test code = T3, Free) 2.6000 pg/mL 2.0000-4.4000 T3, [id number] 14:21:00 Test Item Value Reference Range Comments T3, Free (test code = T3, Free) 2.6000 pg/mL 2.0000-4.4000 T4, Free (test code = T4, Free) 1.4100 ng/dL 0.8200-1.7700 TSH (test code = TSH) 0.8920 0.4500-4.5000 [id number] 10:22:00 Test Item Value Reference Range Comments Creatinine (test code = Creatinine) 0.6000 mg/dL 0.5000-1.200 0 Cr Clearance (Est) (test code = Cr 96.1900 85.0000-125.0 000 Clearance (Est)) Glucose (test code = Glucose) 122.0000 mg/dL 70.0000-118.0000 BUN (test code = BUN) 18.0000 mg/dL 7.0000-22.0000 Sodium (test code = Sodium) 137.0000 mmol/L 128.0000-145.0000 Potassium (test code = Potassium) 4.0000 mmol/L 3.6000-5.1000 Chloride (test code = Chloride) 101.0000 mmol/L 96.0000-108.0000 CO2 (test code = CO2) 31.0000 mmol/L 18.0000-33.0000 Calcium (test code = Calcium) 10.0900 mg/dL 8.0000-10.3000 Alkaline Phosphatase (test code = Alkaline 93.0000 42.00 00-141.0000 Phosphatase) ALT (SGPT) (test code = ALT (SGPT)) 30.0000 10.0000-47.0 000 AST (SGOT) (test code = AST (SGOT)) 26.0000 11.0000-37.0 000 Bilirubin, Total (test code = Bilirubin, 0.3000 mg/dL 0.0000- 1.6000 Total) Albumin (test code = Albumin) 3.9000 g/dL 3.5000-5.5000 Protein, Total (test code = Protein, 6.9000 g/dL 6.4000-8.10 00 Total) eGFR -Italian (test code = eGFR 164.0000 60.0000- 200.0000 -Italian) eGFR Zbt-Opcevfv-Bnovcpqy (test code = 135.0000 60.0000-2 00.0000 eGFR Ibi-Kcjsjrv-Fhqdudme) Magnesium (test code = Magnesium) 1.6000 mg/dL 1.6000-2.3000 [id number] 10:22:00 Test Item Value Reference Range Comments Glucose (test code = Glucose) 122.0000 mg/dL 70.0000-118.0000 Magnesium (test code = Magnesium) 1.6000 mg/dL 1.6000-2.3000 BUN (test code = BUN) 18.0000 mg/dL 7.0000-22.0000 Bilirubin, Total (test code = Bilirubin, 0.3000 mg/dL 0.0000- 1.6000 Total) Creatinine (test code = Creatinine) 0.6000 mg/dL 0.5000-1.200 0 Calcium (test code = Calcium) 10.0900 mg/dL 8.0000-10.3000 Albumin (test code = Albumin) 3.9000 g/dL 3.5000-5.5000 Protein, Total (test code = Protein, 6.9000 g/dL 6.4000-8.10 00 Total) Sodium (test code = Sodium) 137.0000 mmol/L 128.0000-145.0000 Cr Clearance (Est) (test code = Cr 96.1900 85.0000-125.0 000 Clearance (Est)) eGFR Ekr-Snbtqix-Izxqbqzj (test code = 135.0000 60.0000-2 00.0000 eGFR Biv-Hunsgkm-Lxafuyqo) eGFR -Italian (test code = eGFR 164.0000 60.0000- 200.0000 -Italian) Potassium (test code = Potassium) 4.0000 mmol/L 3.6000-5.1000 CO2 (test code = CO2) 31.0000 mmol/L 18.0000-33.0000 Chloride (test code = Chloride) 101.0000 mmol/L 96.0000-108.0000 AST (SGOT) (test code = AST (SGOT)) 26.0000 11.0000-37.0 000 ALT (SGPT) (test code = ALT (SGPT)) 30.0000 10.0000-47.0 000 Alkaline Phosphatase (test code = Alkaline 93.0000 42.00 00-141.0000 Phosphatase) [id number] 10:21:00 Test Item Value Reference Range Comments WBC (test code = WBC) 12.9000 4.0000-10.0000 Lymphocytes % (test code = Lymphocytes %) 10.6000 % 22.400 0-43.6000 MID% (test code = MID%) 3.4000 % 1.2000-11.2000 Neutrophils % (test code = Neutrophils %) 86.0000 % 48.900 0-69.9000 Lymphocytes (test code = Lymphocytes) 1.3000 1.2000-3.2 000 MID (test code = MID) 0.5000 0.1000-1.1000 Neutrophils (test code = Neutrophils) 11.1000 1.5000-6.7 000 RBC (test code = RBC) 4.8900 3.7000-4.9000 HGB (test code = HGB) 10.8000 g/dL 11.2000-18.0000 HCT (test code = HCT) 35.5000 % 34.0000-44.0000 MCV (test code = MCV) 72.7000 fL 80.0000-94.0000 MCH (test code = MCH) 22.0000 pg 27.0000-34.0000 MCHC (test code = MCHC) 30.3000 g/dL 31.5000-36.0000 RDW (test code = RDW) 11.0000-18.0000 PLT (test code = PLT) 506.0000 140.0000-440.0000 MPV (test code = MPV) 8.1000 fL 6.8000-10.6000 [id number] 10:21:00 Test Item Value Reference Range Comments RDW (test code = RDW) 11.0000-18.0000 HCT (test code = HCT) 35.5000 % 34.0000-44.0000 Neutrophils % (test code = Neutrophils %) 86.0000 % 48.900 0-69.9000 MID% (test code = MID%) 3.4000 % 1.2000-11.2000 Lymphocytes % (test code = Lymphocytes %) 10.6000 % 22.400 0-43.6000 MCH (test code = MCH) 22.0000 pg 27.0000-34.0000 MPV (test code = MPV) 8.1000 fL 6.8000-10.6000 HGB (test code = HGB) 10.8000 g/dL 11.1999-18.0000 MCHC (test code = MCHC) 30.3000 g/dL 31.5000-36.0000 MCV (test code = MCV) 72.7000 fL 80.0000-94.0000 Neutrophils (test code = Neutrophils) 11.1000 1.5000-6.7 000 Lymphocytes (test code = Lymphocytes) 1.3000 1.2000-3.2 000 RBC (test code = RBC) 4.8900 3.7000-4.9000 WBC (test code = WBC) 12.9000 4.0000-10.0000 PLT (test code = PLT) 506.0000 140.0000-440.0000 MID (test code = MID) 0.5000 0.1000-1.1000 [id number] 11:50:00 Test Item Value Reference Range Comments PT (test code = PT) 17.9000 s 10.0000-14.0000 INR (test code = INR) 1.5000 0.0000-3.5000 Coumadin, Current [id number] 11:50:00 Test Item Value Reference Range Comments Coumadin, Current Dose (test code = Coumadin, lovenox shots Current Dose) Coumadin, New Dose (test code = Coumadin, New Pending Dose) Return [id number] 11:50:00 Test Item Value Reference Range Comments Return Date (test code = Return Date) Pending [id number] 11:50:00 Test Item Value Reference Range Comments INR (test code = INR) 1.5000 0.0000-3.5000 PT (test code = PT) 17.9000 s 10.0000-14.0000 Coumadin, New [id number] 11:50:00 Test Item Value Reference Range Comments Coumadin, New Dose (test code = Coumadin, New Pending Dose) Coumadin, Current Dose (test code = Coumadin, lovenox shots Current Dose) [id number] 12:22:00 Test Item Value Reference Range Comments Creatinine (test code = Creatinine) 0.6300 mg/dL 0.7600-1.270 0 Cr Clearance (Est) (test code = Cr 103.7500 85.0000-125.0 000 Clearance (Est)) Glucose (test code = Glucose) 84.0000 mg/dL 65.0000-99.0000 BUN (test code = BUN) 9.0000 mg/dL 8.0000-27.0000 eGFR Fop-Xpsiock-Phgmkavn (test code = 103.0000 eGFR Xfk-Zdckmok-Jlgjtyhv) eGFR -Italian (test code = eGFR 119.0000 -Italian) BUN/Creat Ratio (test code = BUN/Creat 14.0000 10.0000-2 4.0000 Ratio) Sodium (test code = Sodium) 139.0000 mmol/L 134.0000-144.0000 Potassium (test code = Potassium) 4.5000 mmol/L 3.5000-5.2000 Chloride (test code = Chloride) 97.0000 mmol/L 96.0000-106.0000 CO2 (test code = CO2) 28.0000 mmol/L 20.0000-29.0000 Calcium (test code = Calcium) 10.1000 mg/dL 8.6000-10.2000 Protein, Total (test code = Protein, 7.0000 g/dL 6.0000-8.50 00 Total) Albumin (test code = Albumin) 3.7000 g/dL 3.6000-4.8000 Globulin (test code = Globulin) 3.3000 g/dL 1.5000-4.5000 A/G Ratio (test code = A/G Ratio) 1.1000 1.2000-2.2000 Bilirubin, Total (test code = Bilirubin, 0.2000 mg/dL 0.0000- 1.2000 Total) Alkaline Phosphatase (test code = 67.0000 39.0000-117.00 00 Alkaline Phosphatase) AST (SGOT) (test code = AST (SGOT)) 25.0000 0.0000-40.00 00 ALT (SGPT) (test code = ALT (SGPT)) 23.0000 0.0000-44.00 00 Iron, Total (test code = Iron, Total) 19.0000 38.0000-16 9.0000 TIBC (test code = TIBC) 315.0000 250.0000-450.0000 UIBC (test code = UIBC) 296.0000 111.0000-343.0000 % Iron Saturation (test code = % Iron 6.0000 % 15.0000-55 .0000 Saturation) Vitamin B12 (test code = Vitamin B12) 698.0000 pg/mL 232.0000-1 245.0000 Folate (test code = Folate) 4.4000 ng/mL Ferritin (test code = Ferritin) 774.0000 ng/mL 30.0000-400.0000 [id number] 12:22:00 Test Item Value Reference Range Comments UIBC (test code = UIBC) 296.0000 111.0000-343.0000 Iron, Total (test code = Iron, Total) 19.0000 38.0000-16 9.0000 TIBC (test code = TIBC) 315.0000 250.0000-450.0000 BUN (test code = BUN) 9.0000 mg/dL 8.0000-27.0000 Glucose (test code = Glucose) 84.0000 mg/dL 65.0000-99.0000 Vitamin B12 (test code = Vitamin B12) 698.0000 pg/mL 232.0000-1 245.0000 Globulin (test code = Globulin) 3.3000 g/dL 1.5000-4.5000 Protein, Total (test code = Protein, 7.0000 g/dL 6.0000-8.50 00 Total) Albumin (test code = Albumin) 3.7000 g/dL 3.6000-4.8000 Calcium (test code = Calcium) 10.1000 mg/dL 8.6000-10.2000 Creatinine (test code = Creatinine) 0.6300 mg/dL 0.7600-1.270 0 Bilirubin, Total (test code = Bilirubin, 0.2000 mg/dL 0.0000- 1.2000 Total) Sodium (test code = Sodium) 139.0000 mmol/L 134.0000-144.0000 Cr Clearance (Est) (test code = Cr 103.7500 85.0000-125.0 000 Clearance (Est)) Ferritin (test code = Ferritin) 774.0000 ng/mL 30.0000-400.0000 Folate (test code = Folate) 4.4000 ng/mL Alkaline Phosphatase (test code = 67.0000 39.0000-117.00 00 Alkaline Phosphatase) ALT (SGPT) (test code = ALT (SGPT)) 23.0000 0.0000-44.00 00 AST (SGOT) (test code = AST (SGOT)) 25.0000 0.0000-40.00 00 Chloride (test code = Chloride) 97.0000 mmol/L 96.0000-106.0000 CO2 (test code = CO2) 28.0000 mmol/L 20.0000-29.0000 Potassium (test code = Potassium) 4.5000 mmol/L 3.5000-5.2000 % Iron Saturation (test code = % Iron 6.0000 % 15.0000-55 .0000 Saturation) A/G Ratio (test code = A/G Ratio) 1.1000 1.2000-2.2000 BUN/Creat Ratio (test code = BUN/Creat 14.0000 10.0000-2 4.0000 Ratio) eGFR -Italian (test code = eGFR 119.0000 -Italian) eGFR Clq-Swpygfg-Hwxoaffn (test code = 103.0000 eGFR Kit-Hszhwtj-Vqynmkgl) [id number] 10:55:00 Test Item Value Reference Range Comments PT (test code = PT) 39.4000 s 10.0000-14.0000 INR (test code = INR) 3.3000 0.0000-3.5000 WBC (test code = WBC) 11.1000 4.0000-10.0000 Lymphocytes % (test code = Lymphocytes %) 12.4000 % 22.400 0-43.6000 MID% (test code = MID%) 5.0000 % 1.2000-11.2000 Neutrophils % (test code = Neutrophils %) 82.6000 % 48.900 0-69.9000 Lymphocytes (test code = Lymphocytes) 1.3000 1.2000-3.2 000 MID (test code = MID) 0.6000 0.1000-1.1000 Neutrophils (test code = Neutrophils) 9.2000 1.5000-6.7 000 RBC (test code = RBC) 4.7100 3.7000-4.9000 HGB (test code = HGB) 11.1000 g/dL 11.2000-18.0000 HCT (test code = HCT) 34.4000 % 34.0000-44.0000 MCV (test code = MCV) 73.0000 fL 80.0000-94.0000 MCH (test code = MCH) 23.7000 pg 27.0000-34.0000 MCHC (test code = MCHC) 32.4000 g/dL 31.5000-36.0000 RDW (test code = RDW) 14.3000 11.0000-18.0000 PLT (test code = PLT) 476.0000 140.0000-440.0000 MPV (test code = MPV) 7.8000 fL 6.8000-10.6000 Coumadin, Current [id number] 10:55:00 Test Item Value Reference Range Comments Coumadin, Current Dose (test 2.5 daily code = Coumadin, Current Dose) Coumadin, New Dose (test code patient is holding for a = Coumadin, New Dose) upcoming procedure/eat greens Return [id number] 10:55:00 Test Item Value Reference Range Comments Return Date (test code = Return Date) 1 week [id number] 10:55:00 Test Item Value Reference Range Comments RDW (test code = RDW) 14.3000 11.0000-18.0000 INR (test code = INR) 3.3000 0.0000-3.5000 HCT (test code = HCT) 34.4000 % 34.0000-44.0000 Neutrophils % (test code = Neutrophils %) 82.6000 % 48.900 0-69.9000 Lymphocytes % (test code = Lymphocytes %) 12.4000 % 22.400 0-43.6000 MID% (test code = MID%) 5.0000 % 1.2000-11.2000 PT (test code = PT) 39.4000 s 10.0000-14.0000 MCH (test code = MCH) 23.7000 pg 27.0000-34.0000 MPV (test code = MPV) 7.8000 fL 6.8000-10.6000 MCV (test code = MCV) 73.0000 fL 80.0000-94.0000 MCHC (test code = MCHC) 32.4000 g/dL 31.5000-36.0000 HGB (test code = HGB) 11.1000 g/dL 11.2000-18.0000 Lymphocytes (test code = Lymphocytes) 1.3000 1.2000-3.2 000 Neutrophils (test code = Neutrophils) 9.2000 1.5000-6.7 000 MID (test code = MID) 0.6000 0.1000-1.1000 PLT (test code = PLT) 476.0000 140.0000-440.0000 WBC (test code = WBC) 11.1000 4.0000-10.0000 RBC (test code = RBC) 4.7100 3.7000-4.9000 Assessments Condition Name Status Diagnosis Date Treating Clinici an Pain of left shoulder joint Active 2019-12-19 09:35:01 Subacromial bursitis of left shoulder Active 2019-12-19 10:40:56 Pain of left shoulder joint Active 2019-10-03 08:37:08 Subacromial bursitis of left shoulder Active 2019-10-03 14:26:20 Encounters Start End Encounter Admission Attending Care Care Encounter Date/Time Date/Time Type Type Clinicians Facility Department ID 2020-08-19 2020-08-19 [id number]00 00:00:00 Dr. Chris bai [facility] Medical Oncology Oncology [facility] 2020-08-10 2020-08-10 Macho [facility] 2 [id number] 00:00:00 00:00:00 Jocelin b[address] [facility] Oncology Oncology [facility] 2020-08-05 2020[facility]08[id number] 00:00:00 Dr. Chris bai [facility] Medical Oncology Oncology [facility] 2020-07-29 2020-07-29 Sandi [facility] [id number] 00:00:00 00:00:00 Dr. Chris bai [facility] Medical Oncology Oncology [facility] [place] 2020-07-08 2020-07-08 Dr. Feliciano Beckett [id number] 00:00:00 00:00:00 Lana bai [facility] Medical Oncology Oncology [facility] [place] 2020-07-07 2020-07-07 Outpatient Feliciano Wiggins n [id number] 00:00:00 00:00:00 [facility] Medical Oncology Oncology [facility] [place] 2020-06-17 2020-06-17 Sandi [facility] [id number] 00:00:00 00:00:[address] [facility] Medical Oncology Oncology [facility] [place] 2020-05-27 2020-05-27 Sandi Junior [facility] [id number] 00:00:00 00:00:00 Dr. Chris Perez [facility] Oncology Oncology [facility] [place] 2020-05-10 2020-05-10 Outpatient Feliciano Junior rn [id number] 00:00:[facility] [place] 2020-05-06 2020-05-06 Outpatient Feliciano Wiggins n [id number] 00:00:00 00:00:00 [facility] Medical Oncology Oncology [facility] [place] 2020-04-28 2020-04-28 Outpatient Feliciano Junior rn [id number] 00:00:00 [facility]00[facility] [place] 2020-04-27 2020-04-27 Outpatient Feliciano Wiggins n [id number] 00:00:00 00:00:00 [facility] Oncology Oncology [facility] [place] 2020-04-26 2020-04-26 Outpatient Feliciano Junior rn [id number] 00:00:00 [facility] [place] 2020-04-22 2020-04-22 Outpatient Feliciano Wiggins n [id number] 00:00:00 00:00:00 [facility] Medical Oncology Oncology [facility] [place] 2020-04-21 2020-04-21 Outpatient Feliciano Wiggins n [id number] 00:00:00 00:00:00 [facility] Medical Oncology Oncology [facility] [place] 2020-04-15 2020-04-15 Dr. Sandi Beckett [facility] [id number] 00:00:00 00:00:00 Lana bai Medical Medical Oncology Oncology [facility] 2020-03-25 2020-03-25 Dr. Feliciano Beckett [id number] 00:00:00 00:00:00 Lana bai Medical Medical Oncology Oncology [facility] 2020-03-24 2020-03-24 Outpatient Feliciano bai [id number] 00:00:00 00:00:00 Medical Medical Oncology [facility]cology [facility] [place] 2020-03-04 2020-03-04 Outpatient Feliciano bai [id number] 00:00:00 00:00:00 n Medical Medical Oncology Oncology Center [facility] 2020-02-13 2020-02-13 Outpatient Feliciano Wiggins n [id number] 00:00:00 00:00:00 Medical Medical Oncology Oncology [facility] [place] 2020-02-12 2020-02-12 Dr. Feliciano Beckett n [id number] 00:00:00 00:00:00 Lana bai [facility] Medical Oncology Oncology [facility] [place] 2020-02-11 2020-02-11 Outpatient Feliciano bai [id number] 00:00:00 00:00:00 Medical Medical Oncology Oncology Center [facility] 2020-01-22 2020-01-22 Outpatient Feliciano Wiggins n [id number] 00:00:00 00:00:00 Medical Medical Oncology Oncology [facility] [place] 2020-01-21 2020-01-21 Outpatient Feliciano Wiggins n [id number] 00:00:00 00:00:00 Medical Medical Oncology Oncology Center [facility] 2020-01-08 2020-01-08 Outpatient Feliciano bai [id number] 00:00:00 00:00:00 Medical Medical Oncology [facility]cology [facility] [place] 2020-01-01 2020-01-01 Dr. Sandi Beckett [facility] [id number] 00:00:00 00:00:00 Lana bai Medical Medical Oncology [facility] [place] 2019-12-19 2019-12-19 Max Tapia [id number] 00:00:00 00:00:00 [facility] [id number] DO: [address] [facility] [address], Ph. 2019-12-11 2019-12-11 Feliciano Junior [id number] 00:00:00 00:00:00 Dr. Chris bai Medical Medical Oncology Oncology Center [facility] 2019-12-02 2019-12-02 Outpatient [facility] Iram n [id number] 00:00:00 00:00:00 Medical Medical Oncology Oncology Center [facility] 2019-11-26 2019-11-26 Outpatient Count Includes [facility] n [id number] 00:00:00 00:00:00 Medical Medical Oncology Oncology [facility] [place] 2019-11-20 2019-11-20 Sandi Sandi [facility] [id number] 00:00:00 00:00:00 Dr. Chris bai [facility] Medical Oncology Oncology [facility] [place] 2019-10-30 2019-10-30 Adolfo [facility] 2 [id number] 00:00:00 00:00:00 Faviola bai [facility] Medical Oncology Oncology [facility] [place] 2019-10-20 2019-10-20 Outpatient Count Includes [facility] n [id number] 00:00:00 00:00:00 [facility] Medical Oncology Oncology [facility] [place] 2019-10-03 2019-10-03 Max Tapia [id number] 00:00:00 00:00:00 [facility], Surgical Surgical [id number] DO: [address] [facility], [address] [address], Ph. 2019-10-03 2019-10-03 Outpatient Count Includes [facility] n [id number] 00:00:00 00:00:00 [facility] Medical Oncology Oncology [facility] [place] 2019-10-02 2019-10-02 Mrs. Ash Sandi [facility] rn [id number] 00:00:00 00:00:[address] [facility] Medical Oncology [facility]cology [facility] [place] 2019-09-11 2019-09-11 Chrismichael Sandi [facility] [id number] 00:00:00 00:00:00 Dr. Chris bai [facility] Medical Oncology Oncology [facility] [place] 2019-08-21 2019-08-21 Sandi Jamesofeliamichael [facility] [id number] 00:00:00 00:00:00 Dr. Chris bai [facility] Medical Oncology Oncology [facility] [place] 2019-07-31 2019-07-31 Jamesmadeline [facility] [id number] 00:00:00 00:00:00 Dr. Perez [facility] Oncology [facility]cology [facility] [place] 2019-07-10 2019-07-10 Sandi Junior [facility] [id number] 00:00:00 00:00:00 Dr. Chris Perez [facility] Oncology [facility]cology [facility] [place] 2019-06-19 2019-06-19 Sandi Junior [facility] [id number] 00:00:00 00:00:00 Dr. Chris Perez [facility] Oncology [facility]cology [facility] [place] 2019-05-29 2019-05-29 Ash, Chris Iramhayden [facility] n [id number] 00:00:00 00:00:00 Mera Schmidt [facility] Oncology Oncology [facility] 2019-05-08 2019-05-08 Macho [facility] 2 [id number] 00:00:00 00:00:00 Jocelin [facility] Oncology Oncology [facility] [place] 2019-04-17 2019-04-17 Dr. [facility] [id number] 00:00:00 00:00:00 Lana Perez [facility] Oncology Oncology [facility] 2019-04-10 2019-04-10 Outpatient Feliciano [facility] n [id number] 00:00:00 00:00:00 [facility] Oncology Oncology [facility] 2019-04-03 2019-04-03 Outpatient Count Includes [facility] n [id number] 00:00:00 00:00:00 [facility] Oncology Oncology [facility] 2019-03-27 2019-03-27 Dr. Sandi Beckett [facility] [id number] 00:00:00 00:00:00 Lana Perez [facility] Oncology Oncology [facility] 2019-03-11 2019-03-11 Mrs. Sandi Aleman [facility] rn [id number] 00:00:00 00:00:00 Mera Perez [facility] Oncology Oncology [facility] 2019-03-04 2019-03-04 Outpatient Feliciano Junior rn [id number] 00:00:00 00:00:00 [facility] 2019-02-24 2019-02-24 Outpatient Feliciano Junior rn [id number] 00:00:00 00:00:00 [facility] Oncology Oncology [facility] 2019-02-18 2019-02-18 Outpatient Count Includes [facility] n [id number] 00:00:00 00:00:00 [facility] Oncology Oncology [facility] 2019-02-14 2019-02-14 James Juniormadeline [facility] [id number] 00:00:00 00:00:00 Dr. Chris Perez [facility] Oncology Oncology [facility] 2019-02-06 2019-02-06 [id number] 00:00:00 00:00:00 [facility] Oncology Oncology [facility] 2019-01-29 2019-01-29 Riley Sandi [facility] [id number] 00:00:00 00:00:00 Tamara [facility] Oncology Oncology [facility] 2019-01-27 2019-01-27 Outpatient Count Includes [facility] n [id number] 00:00:00 00:00:00 [facility] Oncology Oncology [facility] 2019-01-24 2019-01-24 Outpatient Count Includes [facility] n [id number] 00:00:00 00:00:00 [facility] Oncology Oncology [facility] 2019-01-22 2019-01-22 Outpatient Count Includes [facility] n [id number] 00:00:00 00:00:00 [facility] Oncology Oncology [facility] 2019-01-16 2019-01-16 Sandi Sandi [facility] [id number] 00:00:00 00:00:00 Dr. Chris Perez [facility] Oncology Oncology [facility] 2019-01-15 2019-01-15 Outpatient Count Includes [facility] n [id number] 00:00:00 00:00:00 [facility] Oncology Oncology [facility] 2019-01-08 2019-01-08 Outpatient Count Includes [facility] n [id number] 00:00:00 00:00:00 [facility] Oncology Oncology [facility] Immunizations Ordered Immunization Filled Immunization Date Status Commen ts Refusal Reason Name Name influenza, 2019-08-20 Completed injectable, 00:00:00 quadrivalent Social History Smoking Status Start Date Stop Date Unknown If Ever Smoked Yes - but quit (former) 2020-08-19 00:00:00 2020-08-19 00:00 :00 Social History Observation Description Sex Male Vital Signs Vital Name Observation Time Observation Value Comments BP Diastolic 2019-12-19 00:00:00 70 mm[Hg] Height 2019-12-19 00:00:00 71 [in_i] BMI (Body Mass Index) 2019-12-19 00:00:00 0.1 kg/m2 BP Systolic 2019-12-19 00:00:00 128 mm[Hg] Body Weight 2019-12-19 00:00:00 1 [lb_av] Height 2019-10-03 00:00:00 71 [in_i] BMI (Body Mass Index) 2019-10-03 00:00:00 20.5 kg/m2 Body Weight 2019-10-03 00:00:00 147 [lb_av] BMI 2020-08-19 11:04:00 24.6300 BP waters 2020-08-19 11:04:00 69.0000 mm[Hg] Bdy height 2020-08-19 11:04:00 71.0000 [in_i] SaO2% BldA PulseOx 2020-08-19 11:04:00 95.0000 % Heart rate 2020-08-19 11:04:00 66.0000 /min Resp rate 2020-08-19 11:04:00 18.0000 /min BP sys 2020-08-19 11:04:00 116.0000 mm[Hg] Body temperature 2020-08-19 11:04:00 97.6000 [degF] Weight 2020-08-19 11:04:00 176.6000 [lb_av] BMI 2020-08-10 13:41:23 24.6600 BP waters 2020-08-10 13:41:23 73.0000 mm[Hg] Bdy height 2020-08-10 13:41:23 71.0000 [in_i] SaO2% BldA PulseOx 2020-08-10 13:41:23 95.0000 % Heart rate 2020-08-10 13:41:23 78.0000 /min Resp rate 2020-08-10 13:41:23 22.0000 /min BP sys 2020-08-10 13:41:23 129.0000 mm[Hg] Body temperature 2020-08-10 13:41:23 98.2000 [degF] Weight 2020-08-10 13:41:23 176.8000 [lb_av] BMI 2020-08-05 12:02:05 25.1100 BP waters 2020-08-05 12:02:05 79.0000 mm[Hg] Bdy height 2020-08-05 12:02:05 71.0000 [in_i] SaO2% BldA PulseOx 2020-08-05 12:02:05 97.0000 % Heart rate 2020-08-05 12:02:05 69.0000 /min Resp rate 2020-08-05 12:02:05 20.0000 /min BP sys 2020-08-05 12:02:05 102.0000 mm[Hg] Body temperature 2020-08-05 12:02:05 98.8000 [degF] Weight 2020-08-05 12:02:05 180.0000 [lb_av] BP waters 2020-07-29 11:40:38 62.0000 mm[Hg] Bdy height 2020-07-29 11:40:38 71.0000 [in_i] SaO2% BldA PulseOx 2020-07-29 11:40:38 96.0000 % Heart rate 2020-07-29 11:40:38 67.0000 /min Resp rate 2020-07-29 11:40:38 18.0000 /min BP sys 2020-07-29 11:40:38 128.0000 mm[Hg] Body temperature 2020-07-29 11:40:38 97.3000 [degF] BP waters 2020-07-08 10:19:16 66.0000 mm[Hg] Bdy height 2020-07-08 10:19:16 71.0000 [in_i] SaO2% BldA PulseOx 2020-07-08 10:19:16 97.0000 % Heart rate 2020-07-08 10:19:16 70.0000 /min Resp rate 2020-07-08 10:19:16 18.0000 /min BP sys 2020-07-08 10:19:16 122.0000 mm[Hg] Body temperature 2020-07-08 10:19:16 97.8000 [degF] BMI 2020-06-17 10:32:17 15.0600 BP waters 2020-06-17 10:32:17 72.0000 mm[Hg] Bdy height 2020-06-17 10:32:17 71.0000 [in_i] SaO2% BldA PulseOx 2020-06-17 10:32:17 97.0000 % Heart rate 2020-06-17 10:32:17 78.0000 /min Resp rate 2020-06-17 10:32:17 20.0000 /min BP sys 2020-06-17 10:32:17 148.0000 mm[Hg] Body temperature 2020-06-17 10:32:17 98.0000 [degF] Weight 2020-06-17 10:32:17 108.0000 [lb_av] BMI 2020-05-27 09:51:54 24.4400 BP waters 2020-05-27 09:51:54 75.0000 mm[Hg] Bdy height 2020-05-27 09:51:54 71.0000 [in_i] SaO2% BldA PulseOx 2020-05-27 09:51:54 97.0000 % Heart rate 2020-05-27 09:51:54 89.0000 /min Resp rate 2020-05-27 09:51:54 22.0000 /min BP sys 2020-05-27 09:51:54 129.0000 mm[Hg] Body temperature 2020-05-27 09:51:54 97.5000 [degF] Weight 2020-05-27 09:51:54 175.2000 [lb_av] BP waters 2020-05-06 10:26:18 72.0000 mm[Hg] Bdy height 2020-05-06 10:26:18 71.0000 [in_i] SaO2% BldA PulseOx 2020-05-06 10:26:18 97.0000 % Heart rate 2020-05-06 10:26:18 73.0000 /min Resp rate 2020-05-06 10:26:18 20.0000 /min BP sys 2020-05-06 10:26:18 123.0000 mm[Hg] Body temperature 2020-05-06 10:26:18 98.2000 [degF] Bdy height 2020-04-22 10:11:19 71.0000 [in_i] Body temperature 2020-04-22 10:11:19 96.8000 [degF] BMI 2020-04-15 10:50:48 23.9900 BP waters 2020-04-15 10:50:48 71.0000 mm[Hg] Bdy height 2020-04-15 10:50:48 71.0000 [in_i] SaO2% BldA PulseOx 2020-04-15 10:50:48 96.0000 % Heart rate 2020-04-15 10:50:48 71.0000 /min Resp rate 2020-04-15 10:50:48 16.0000 /min BP sys 2020-04-15 10:50:48 116.0000 mm[Hg] Body temperature 2020-04-15 10:50:48 97.3000 [degF] Weight 2020-04-15 10:50:48 172.0000 [lb_av] BMI 2020-03-25 10:18:47 23.4300 BP waters 2020-03-25 10:18:47 71.0000 mm[Hg] Bdy height 2020-03-25 10:18:47 71.0000 [in_i] SaO2% BldA PulseOx 2020-03-25 10:18:47 95.0000 % Heart rate 2020-03-25 10:18:47 82.0000 /min Resp rate 2020-03-25 10:18:47 20.0000 /min BP sys 2020-03-25 10:18:47 119.0000 mm[Hg] Body temperature 2020-03-25 10:18:47 98.2000 [degF] Weight 2020-03-25 10:18:47 168.0000 [lb_av] BMI 2020-03-04 10:12:19 23.7400 BP waters 2020-03-04 10:12:19 80.0000 mm[Hg] Bdy height 2020-03-04 10:12:19 71.0000 [in_i] SaO2% BldA PulseOx 2020-03-04 10:12:19 96.0000 % Heart rate 2020-03-04 10:12:19 81.0000 /min Resp rate 2020-03-04 10:12:19 20.0000 /min BP sys 2020-03-04 10:12:19 138.0000 mm[Hg] Body temperature 2020-03-04 10:12:19 98.4000 [degF] Weight 2020-03-04 10:12:19 170.2000 [lb_av] BP waters 2020-02-12 10:04:25 75.0000 mm[Hg] Bdy height 2020-02-12 10:04:25 71.0000 [in_i] SaO2% BldA PulseOx 2020-02-12 10:04:25 96.0000 % Heart rate 2020-02-12 10:04:25 75.0000 /min Resp rate 2020-02-12 10:04:25 16.0000 /min BP sys 2020-02-12 10:04:25 112.0000 mm[Hg] Body temperature 2020-02-12 10:04:25 98.2000 [degF] BMI 2020-01-22 11:14:51 22.7300 BP waters 2020-01-22 11:14:51 81.0000 mm[Hg] Bdy height 2020-01-22 11:14:51 71.0000 [in_i] SaO2% BldA PulseOx 2020-01-22 11:14:51 94.0000 % Heart rate 2020-01-22 11:14:51 80.0000 /min Resp rate 2020-01-22 11:14:51 20.0000 /min BP sys 2020-01-22 11:14:51 127.0000 mm[Hg] Body temperature 2020-01-22 11:14:51 99.4000 [degF] Weight 2020-01-22 11:14:51 163.0000 [lb_av] BMI 2020-01-01 10:53:10 22.2000 BP waters 2020-01-01 10:53:10 70.0000 mm[Hg] Bdy height 2020-01-01 10:53:10 71.0000 [in_i] SaO2% BldA PulseOx 2020-01-01 10:53:10 97.0000 % Heart rate 2020-01-01 10:53:10 59.0000 /min Resp rate 2020-01-01 10:53:10 16.0000 /min BP sys 2020-01-01 10:53:10 125.0000 mm[Hg] Body temperature 2020-01-01 10:53:10 97.1000 [degF] Weight 2020-01-01 10:53:10 159.2000 [lb_av] BMI 2019-12-11 11:19:04 21.0900 BP waters 2019-12-11 11:19:04 68.0000 mm[Hg] Bdy height 2019-12-11 11:19:04 71.0000 [in_i] SaO2% BldA PulseOx 2019-12-11 11:19:04 97.0000 % Heart rate 2019-12-11 11:19:04 67.0000 /min Resp rate 2019-12-11 11:19:04 16.0000 /min BP sys 2019-12-11 11:19:04 124.0000 mm[Hg] Body temperature 2019-12-11 11:19:04 96.9000 [degF] Weight 2019-12-11 11:19:04 151.2000 [lb_av] BMI 2019-11-20 11:10:47 21.3700 Bdy height 2019-11-20 11:10:47 71.0000 [in_i] Weight 2019-11-20 11:10:47 153.2000 [lb_av] BP waters 2019-11-20 11:05:23 70.0000 mm[Hg] Bdy height 2019-11-20 11:05:23 71.0000 [in_i] SaO2% BldA PulseOx 2019-11-20 11:05:23 94.0000 % Heart rate 2019-11-20 11:05:23 76.0000 /min Resp rate 2019-11-20 11:05:23 18.0000 /min BP sys 2019-11-20 11:05:23 111.0000 mm[Hg] Body temperature 2019-11-20 11:05:23 96.9000 [degF] BMI 2019-10-30 11:51:38 20.7400 BP waters 2019-10-30 11:51:38 74.0000 mm[Hg] Bdy height 2019-10-30 11:51:38 71.0000 [in_i] SaO2% BldA PulseOx 2019-10-30 11:51:38 97.0000 % Heart rate 2019-10-30 11:51:38 80.0000 /min Resp rate 2019-10-30 11:51:38 17.0000 /min BP sys 2019-10-30 11:51:38 114.0000 mm[Hg] Body temperature 2019-10-30 11:51:38 96.7000 [degF] Weight 2019-10-30 11:51:38 148.7000 [lb_av] BMI 2019-10-02 10:54:35 20.6100 BP waters 2019-10-02 10:54:35 64.0000 mm[Hg] Bdy height 2019-10-02 10:54:35 71.0000 [in_i] SaO2% BldA PulseOx 2019-10-02 10:54:35 97.0000 % Heart rate 2019-10-02 10:54:35 85.0000 /min Resp rate 2019-10-02 10:54:35 16.0000 /min BP sys 2019-10-02 10:54:35 114.0000 mm[Hg] Body temperature 2019-10-02 10:54:35 97.0000 [degF] Weight 2019-10-02 10:54:35 147.8000 [lb_av] BMI 2019-09-11 11:42:15 20.4200 BP waters 2019-09-11 11:42:15 73.0000 mm[Hg] Bdy height 2019-09-11 11:42:15 71.0000 [in_i] SaO2% BldA PulseOx 2019-09-11 11:42:15 97.0000 % Heart rate 2019-09-11 11:42:15 64.0000 /min Resp rate 2019-09-11 11:42:15 16.0000 /min BP sys 2019-09-11 11:42:15 120.0000 mm[Hg] Body temperature 2019-09-11 11:42:15 96.8000 [degF] Weight 2019-09-11 11:42:15 146.4000 [lb_av] BMI 2019-08-21 12:09:59 19.9400 BP waters 2019-08-21 12:09:59 69.0000 mm[Hg] Bdy height 2019-08-21 12:09:59 71.0000 [in_i] Heart rate 2019-08-21 12:09:59 73.0000 /min Resp rate 2019-08-21 12:09:59 16.0000 /min BP sys 2019-08-21 12:09:59 114.0000 mm[Hg] Body temperature 2019-08-21 12:09:59 97.0000 [degF] Weight 2019-08-21 12:09:59 143.0000 [lb_av] BMI 2019-07-31 11:25:47 19.6900 BP waters 2019-07-31 11:25:47 81.0000 mm[Hg] Bdy height 2019-07-31 11:25:47 71.0000 [in_i] SaO2% BldA PulseOx 2019-07-31 11:25:47 98.0000 % Heart rate 2019-07-31 11:25:47 65.0000 /min Resp rate 2019-07-31 11:25:47 18.0000 /min BP sys 2019-07-31 11:25:47 139.0000 mm[Hg] Body temperature 2019-07-31 11:25:47 96.5000 [degF] Weight 2019-07-31 11:25:47 141.2000 [lb_av] BMI 2019-07-10 11:30:28 18.7200 BP waters 2019-07-10 11:30:28 71.0000 mm[Hg] Bdy height 2019-07-10 11:30:28 71.0000 [in_i] Heart rate 2019-07-10 11:30:28 87.0000 /min Resp rate 2019-07-10 11:30:28 18.0000 /min BP sys 2019-07-10 11:30:28 101.0000 mm[Hg] Body temperature 2019-07-10 11:30:28 97.1000 [degF] Weight 2019-07-10 11:30:28 134.2000 [lb_av] Heart rate 2019-06-19 12:57:37 84.0000 /min Resp rate 2019-06-19 12:57:37 16.0000 /min BP sys 2019-06-19 12:57:37 102.0000 mm[Hg] Body temperature 2019-06-19 12:57:37 97.8000 [degF] Weight 2019-06-19 12:57:37 131.2000 [lb_av] BMI 2019-06-19 12:57:37 18.3000 BP waters 2019-06-19 12:57:37 65.0000 mm[Hg] Bdy height 2019-06-19 12:57:37 71.0000 [in_i] BMI 2019-05-29 11:46:56 17.2900 BP waters 2019-05-29 11:46:56 50.0000 mm[Hg] Bdy height 2019-05-29 11:46:56 71.0000 [in_i] SaO2% BldA PulseOx 2019-05-29 11:46:56 98.0000 % Heart rate 2019-05-29 11:46:56 99.0000 /min Resp rate 2019-05-29 11:46:56 18.0000 /min BP sys 2019-05-29 11:46:56 103.0000 mm[Hg] Body temperature 2019-05-29 11:46:56 98.2000 [degF] Weight 2019-05-29 11:46:56 124.0000 [lb_av] BMI 2019-05-08 11:41:33 16.5400 BP watres 2019-05-08 11:41:33 75.0000 mm[Hg] Bdy height 2019-05-08 11:41:33 71.0000 [in_i] SaO2% BldA PulseOx 2019-05-08 11:41:33 92.0000 % Heart rate 2019-05-08 11:41:33 86.0000 /min Resp rate 2019-05-08 11:41:33 18.0000 /min BP sys 2019-05-08 11:41:33 129.0000 mm[Hg] Body temperature 2019-05-08 11:41:33 96.5000 [degF] Weight 2019-05-08 11:41:33 118.6000 [lb_av] BMI 2019-04-17 11:59:44 16.6800 BP waters 2019-04-17 11:59:44 67.0000 mm[Hg] Bdy height 2019-04-17 11:59:44 71.0000 [in_i] Heart rate 2019-04-17 11:59:44 120.0000 /min Resp rate 2019-04-17 11:59:44 18.0000 /min BP sys 2019-04-17 11:59:44 98.0000 mm[Hg] Body temperature 2019-04-17 11:59:44 97.4000 [degF] Weight 2019-04-17 11:59:44 119.6000 [lb_av] BMI 2019-03-27 10:45:55 17.2700 BP waters 2019-03-27 10:45:55 75.0000 mm[Hg] Bdy height 2019-03-27 10:45:55 71.0000 [in_i] SaO2% BldA PulseOx 2019-03-27 10:45:55 91.0000 % Heart rate 2019-03-27 10:45:55 107.0000 /min Resp rate 2019-03-27 10:45:55 20.0000 /min BP sys 2019-03-27 10:45:55 108.0000 mm[Hg] Body temperature 2019-03-27 10:45:55 96.6000 [degF] Weight 2019-03-27 10:45:55 123.8000 [lb_av] BMI 2019-03-11 09:43:40 17.4300 BP waters 2019-03-11 09:43:40 81.0000 mm[Hg] Bdy height 2019-03-11 09:43:40 71.0000 [in_i] SaO2% BldA PulseOx 2019-03-11 09:43:40 93.0000 % Heart rate 2019-03-11 09:43:40 114.0000 /min Resp rate 2019-03-11 09:43:40 20.0000 /min BP sys 2019-03-11 09:43:40 125.0000 mm[Hg] Body temperature 2019-03-11 09:43:40 96.8000 [degF] Weight 2019-03-11 09:43:40 125.0000 [lb_av] BMI 2019-02-14 12:38:16 17.9900 BP waters 2019-02-14 12:38:16 66.0000 mm[Hg] Bdy height 2019-02-14 12:38:16 71.0000 [in_i] Heart rate 2019-02-14 12:38:16 97.0000 /min Resp rate 2019-02-14 12:38:16 18.0000 /min BP sys 2019-02-14 12:38:16 130.0000 mm[Hg] Body temperature 2019-02-14 12:38:16 98.0000 [degF] Weight 2019-02-14 12:38:16 129.0000 [lb_av] BMI 2019-01-29 11:35:57 19.2200 BP waters 2019-01-29 11:35:57 60.0000 mm[Hg] Bdy height 2019-01-29 11:35:57 71.0000 [in_i] Heart rate 2019-01-29 11:35:57 99.0000 /min Resp rate 2019-01-29 11:35:57 20.0000 /min BP sys 2019-01-29 11:35:57 113.0000 mm[Hg] Body temperature 2019-01-29 11:35:57 97.8000 [degF] Weight 2019-01-29 11:35:57 137.8000 [lb_av] BMI 2019-01-16 10:22:38 19.5500 BP waters 2019-01-16 10:22:38 83.0000 mm[Hg] Bdy height 2019-01-16 10:22:38 71.0000 [in_i] Heart rate 2019-01-16 10:22:38 103.0000 /min Resp rate 2019-01-16 10:22:38 20.0000 /min BP sys 2019-01-16 10:22:38 118.0000 mm[Hg] Body temperature 2019-01-16 10:22:38 98.3000 [degF] Weight 2019-01-16 10:22:38 140.2000 [lb_av] Hospital Discharge Instructions 1. Pain of left shoulder joint 2. Subacromial bursitis of left shoulder MRI, shoulder, w/o contrast Pain Cream Option [facility] Discussion Note: None recorded. Patient educational handouts: No information available.1. Pain of left shoulder joint XR, shoulder 2. Subacromial bursitis of left shoulder Discussion Note: None recorded. Patient educational handouts: No information available.
== END 2020-09-01 14:03 | disposition home or self-care (01) ==
LOC: OROUT 09:19
PROVIDERS: ATTEND Internal Medicine Pulmonary Disease
DX: D49.1 Neoplasm of unspecified behavior of respiratory system (principal); R04.2 Hemoptysis; R06.02 Shortness of breath; I48.19 Other persistent atrial fibrillation; I50.9 Heart failure, unspecified; J44.9 Chronic obstructive pulmonary disease, unspecified; Z79.899 Other long term (current) drug therapy; Z79.01 Long term (current) use of anticoagulants; Z87.891 Personal history of nicotine dependence; Z85.118 Personal history of other malignant neoplasm of bronchus and lung; Z86.73 Personal history of transient ischemic attack (TIA), and cerebral infarction without residual deficits
CPT/HCPCS: 31625; 31623; 31624; 36415; 87206; 87116; 87101; 85025; 85610; 85730; 80048; 87015; 88162; 88104 ×2; 88305 ×2; J2250; J0461; J3010; J2550; J0330; J2704; J3490 ×2; A9270; J1642; 520; 87070; 87205; J2310; J7613

== ENCOUNTER → 2020-10-05 | Outpatient (CLI) | payer MEDICARE, OTHER ==
--- NOTE | 2020-10-06 09:47 | RADIOLOGY REPORT (SQ) ---
EXAM DESCRIPTION: PET CT SKULL/THIGH IMAGES COMPLETED DATE/TIME: 10/05/2020 12:21 pm REASON FOR STUDY: (R91.8)OTHER NONSPECIFIC ABNORMAL FINDING OF LUNG FIELD R91.8 OTHER NONSPECIFIC A BNORMAL FINDING OF LUNG FIELD COMPARISON: CT of the chest from 08/09/2020, CT of the abdomen and pelvis from 06/14/2020 and PET fro m 01/26/2019 RADIONUCLIDE AND DOSE: 9.7 mCi F18 FDG The route of agent administration: Intravenous FASTING BLOOD SUGAR: 105 mg/dl CONTRAST TYPE AND DOSE: No CT contrast given. TECHNIQUE: Blood glucose level was verified. Above dose of FDG was injected intravenously. 2-D seg mented attenuation correction images were obtained from the base of the skull to the midthighs. Nonc ontrast CT images were obtained for attenuation correction and fusion with emission images. CT image s were performed without oral or intravenous contrast and are not sensitive for parenchymal lesions. A series of overlapping emission PET images were obtained. [facility] by the [facility]ologist. Images stored on PACS. LIMITATIONS: None. FINDINGS: HEAD AND NECK: No areas of abnormal metabolic activity in the soft tissues of the head and neck. CHEST: The area of mass-like consolidation in the apicoposterior segment of the left upper lobe assoc iated with volume loss is unchanged compared to the CT from 08/09/2020 and it continues to demonstrat e avid FDG uptake with a maximum SUV of 20.8. The hyperdense subcutaneous nodule posterior to the T3 spinous process demonstrates faint FDG uptake with a maximum SUV of 2.9. There are no other areas o f unknown metabolic activity in the chest. ABDOMEN AND PELVIS: The liver demonstrates homogeneous FDG uptake with an average SUV of 2.5. There is expected physiologic activity throughout the gastrointestinal and genitourinary tracts. There are no areas of abnormal metabolic activity in the abdomen and pelvis PROXIMAL LOWER EXTREMITIES: No areas of abnormal metabolic activity in the soft tissues of the lower extremities. BONES: The sclerotic lesion within the T3 vertebral body is unchanged and it demonstrates no abnormal uptake on PET. There are no areas of abnormal metabolic activity in the skeleton. ADDITIONAL CT FINDINGS: No acute abnormality on the noncontrast CT. OTHER: No other findings. IMPRESSION: 1. FDG avid area of masslike consolidation in the apicoposterior segment of the left up per lobe associated with volume loss that is unchanged compared to the CT from 06/14/2020. The area c ontinues to demonstrate intensely avid FDG uptake with a maximum SUV of 20.8. There is no metabolic evidence of metastatic disease. 2. Faintly FDG avid subcutaneous nodule posterior to the T3 spinous process that has been present to some degree since the CT from 09/26/2020. The nodule could represent an epidermal inclusion cyst - c linical correlation is recommended. TECHNICAL DOCUMENTATION: JOB ID: [id number] [employer]- All Rights Reserved Reading location - IP/workstation name: [email or web address]
== END ==
LOC: RAD 08:54
PROVIDERS: ATTEND Internal Medicine
DX: R91.8 Other nonspecific abnormal finding of lung field (principal)
CPT/HCPCS: 78815; A9552